=== PATIENT | male | born 1945 | race Caucasian/White ===

== ENCOUNTER 2019-03-17 18:03 | Inpatient (IN) | payer MEDICARE, MEDICAID, SELFPAY ==
[2018-12-13 15:52] VITALS: BMI 24.7
[2019-03-17] VITALS (11 sets, daily range): BP systolic 101–111; BP diastolic 65–80; PULSE 89–141; RESP 16–24; TEMP 36.8–37.7; O2SAT 92–99; BMI 24.3; BMI 23.1
--- NOTE | 2019-03-17 18:24 | EKG12_ITS ---
Test Reason : TACHY Blood Pressure : / mmHG Vent. Rate : 130 BPM Atrial Rate : 277 BPM P-R Int : 000 ms QRS Dur : 078 ms QT Int : 294 ms P-R-T Axes : 000 061 008 degrees QTc Int : 432 ms Atrial fibrillation with rapid ventricular response Low voltage QRS (Limb Leads) Nonspecific ST abnormality Abnormal ECG Confirmed by FIDENCIO MISTRY, CARTER ([id number]), inspector firearms FLORENCE NEGRETE ([id number]) on 03/20/2019 11:48:42 AM Referred By: KEYONA/SARA Confirmed By:CARTER NICOLAS MD
--- NOTE | 2019-03-17 18:24 | RAD_ITS ---
STUDY: X-RAY CHEST REASON FOR EXAM: Male, 73 years old. SOB for one week TECHNIQUE: Frontal and lateral views of the chest. COMPARISON: 04/19/2017 FINDINGS: The lungs are clear and expanded. There is no demonstrated pleural abnormality. Normal size heart. Normal mediastinum and [place]. Normal visualized pulmonary arteries. Normal visualized aortic arch and descending thoracic aorta. Normal visualized thoracic spine. Normal visualized ribs, clavicles, and shoulders. There is no demonstrated abnormality of the visualized soft tissue structures of the upper abdomen. RAD/Chest PA and Lateral IMPRESSION: Normal x-ray examination of the chest. Electronically Signed: Albert West MD at 19:07 EDT Tel , Service support ,
--- NOTE | 2019-03-17 18:25 | ED.DCSUM_ITS ---
History of Present Illness Chief Complaint: Shortness of Breath Informant: Patient, EMS Onset: Days - 2-3 Activity at onset: Exertion Timing: Intermittent Quality: Dyspnea on exertion Current Severity: Gone Maximum Severity: Severe Worsened by: Coughing, Exertion Relieved by: Rest Associated Symptoms: Cough - w/ carter nonbloody sputum, Fever Chest Pain: Intermittent - over past 1-2 days, constant today; no radiation, Dull, Aching Narrative: Patient has been feeling ill for the last several days with productive cough, dyspnea with exertion, chest discomfort that now is constant despite resting. No history of ischemic heart disease but he does have a cardiomyopathy from unknown cause as well as chronic A. fib. He has felt his heart racing. Per EMS he had a temperature of 102, but despite not getting anything for it, here his temperature is 98. - Past Medical History (1) Cervical arthritis Status: Chronic (2) Anxiety Status: Chronic (3) BPH (benign prostatic hyperplasia) Status: Chronic (4) Cardiomyopathy Status: Chronic (5) Chronic a-fib Status: Chronic (6) DVT (deep venous thrombosis) Status: Chronic (7) HTN (hypertension) Status: Chronic (8) Hyperlipidemia Status: Chronic (9) Other secondary pulmonary hypertension Status: Chronic (10) Pulmonary emboli Status: Chronic Past Medical History - Allergies and Home Meds Allergies/Adverse Reactions: Allergies lisinopril Allergy (Verified 03/17/19 18:11) pain in legs, cant walk niacin Allergy (Verified 03/17/19 18:11) Rash acetaminophen [From Tylenol] Adverse Reaction (Severe, Verified 03/17/19 18:11) Chest pain guaifenesin [From Mucinex] Adverse Reaction (Severe, Verified 03/17/19 18:11) Chest pain popcorn Allergy (Unknown, Uncoded 03/17/19 18:11) Rash food color Adverse Reaction (Severe, Uncoded 03/17/19 18:11) Unknown Primary Care Physician: Danny Helton MD [Primary Care Provider] - Surgical History: - - Full mouth extraction Lives: Shelter - Assisted living Smoking Status: Current every day smoker - Family History Paternal Family History: Reports: Unknown Maternal Family History: Reports: Heart Disease Review of Systems General: Reports: Fever, Malaise, Subjective. Denies: Chills, Sweats Eyes: Denies: Visual changes - bilaterally, Diplopia ENT: Denies: Rhinorrhea, Sore throat Cardiovascular: Reports: Chest pain, Palpitations, Heart racing Respiratory: Reports: Cough, Sputum - carter, no hemoptysis, Dyspnea on exertion. Denies: Orthopnea Gastrointestinal: Denies: Abdominal pain, Nausea, Vomiting, Diarrhea, Melena, Hematochezia Genitourinary: Denies: Dysuria, Hematuria, Frequency Musculoskeletal: Denies: Back pain, Swelling, Extremity Pain Skin: Denies: Rash, Wounds Neurological: Denies: Headache, Weakness, Numbness Physical Exam Vital Signs/Narrative: Vital Signs Temp Pulse Resp BP Pulse Ox 03/17/19 18:04 98.3 F 141 H 21 H 104/71 95 Inital Vital Signs reviewed: Yes General: Well nourished, Well developed, No Acute Distress - conversive in full sentences, nad Head: Normocephalic, Atraumatic Eyes: Perrl, EOMI ENT: Moist mucous membranes, No rhinorrhea Neck: Supple, Nontender, No lymphadenopathy, No JVD Cardiovascular: No murmurs, Normal S1, Normal S2, Irregular, Tachycardia Respiratory: No distress, CTA bilaterally, Chest nontender, Diminished - throughout Abdomen: Soft, Nontender, Nondistended, Normal bowel sounds Back: Nontender, Normal Inspection Extremities: Nontender, No edema. Negative for: Calf Tenderness Skin: Normal color, No rash, No Trauma Neurological: Alert, Oriented x3, Cranial nerves II-XII grossly intact, Normal Strength, Normal Sensation Psychological: Normal affect, Normal Mood Diagnostic/Tx/Re-eval Impressions Chest X-Ray 03/17/19 18:24 IMPRESSION: Normal x-ray examination of the chest. Electronically Signed: Albert West MD at 19:07 EDT Tel , Service support , 03/17/19 18:24 Chest PA and Lateral [RAD] Stat Laboratory Results 03/17/19 03/17/19 03/17/19 18:15 18:15 18:15 WBC 13.9 H RBC 4.28 L Hgb 13.7 Hct 39.9 L MCV 93.2 MCH 32.0 MCHC 34.3 RDW Std Deviation 45.2 H RDW Coeff of Maria Gu[place]upe 13.2 Plt Count 248 MPV 9.8 Immature Gran % (Auto) 0.600 Neut % (Auto) 81.7 H Lymph % (Auto) 7.3 L [place] % (Auto) 10.2 H Eos % (Auto) 0.0 Baso % (Auto) 0.2 Absolute Neuts (auto) 11.4 H Absolute Lymphs (auto) 1.01 Nucleated RBC % 0 Differential Comment SCANNED Diff Path Review May foll Hypersegmented Neuts RARE H Platelet Estimate ADEQUATE RBC Morphology NORM C+C PT 25.7 H INR 2.3 APTT 39.8 H Sodium 136 Potassium 3.7 Chloride 105 Carbon Dioxide 21.0 Anion Gap 10 BUN 20 H Creatinine 0.85 Estim Creat Clear Calc 83.69 Est GFR (MDRD) Af Amer 114 Est GFR (MDRD) Non-Af 94 BUN/Creatinine Ratio 23.6 H Glucose 109 H Lactic Acid Calcium 8.1 L Total Bilirubin 0.60 AST 25 ALT 30 Alkaline Phosphatase 69 Troponin I < 0.015 Total Protein 6.8 Albumin 2.8 L Globulin 4.0 Albumin/Globulin Ratio 0.7 L Urine Color Urine Clarity Urine pH Ur Specific [place] Urine Protein Urine Glucose (UA) Urine Ketones Urine Occult Blood Urine Nitrite Urine Bilirubin Urine Urobilinogen Ur Leukocyte Esterase Urine RBC Urine WBC Ur Squamous Epith Cells Urine Bacteria Hyaline Casts Urine Mucus Digoxin 03/17/19 03/17/19 03/17/19 18:15 18:24 20:40 WBC RBC Hgb Hct MCV MCH MCHC RDW Std Deviation RDW Coeff of Maria [place] Plt Count MPV Immature Gran % (Auto) Neut % (Auto) Lymph % (Auto) [place] % (Auto) Eos % (Auto) Baso % (Auto) Absolute Neuts (auto) Absolute Lymphs (auto) Nucleated RBC % Differential Comment Diff Path Review Hypersegmented Neuts Platelet Estimate RBC Morphology PT INR APTT Sodium Potassium Chloride Carbon Dioxide Anion Gap BUN Creatinine Estim Creat Clear Calc Est GFR (MDRD) Af Amer Est GFR (MDRD) Non-Af BUN/Creatinine Ratio Glucose Lactic Acid 1.2 Calcium Total Bilirubin AST ALT Alkaline Phosphatase Troponin I Total Protein Albumin Globulin Albumin/Globulin Ratio Urine Color Yellow Urine Clarity Sl. Cloudy Urine pH 5.0 Ur Specific [place] 1.015 Urine Protein 30 H Urine Glucose (UA) Normal Urine Ketones 50 H Urine Occult Blood 150 H Urine Nitrite Positive H Urine Bilirubin Negative Urine Urobilinogen Normal Ur Leukocyte Esterase 100 H Urine RBC 0-5 SEEN Urine WBC 10-25 SEEN Ur Squamous Epith Cells 0 SEEN Urine Bacteria 3+ Hyaline Casts 0-5 SEEN Urine Mucus 0 SEEN Digoxin 0.75 L - Rhythm Strip Rhythm Strip: A-fib Rate: 130 Ectopy: None - EKG Initial EKG Interpretation: No Acute Injury Pattern, Atrial Fibrillation Prior: Unchanged - Medical Decision Making Patient meets sepsis criteria, the source ended up being his urine which we started him on antibiotics for after mendoza culturing. His chest x-ray seemed unremarkable. Once we slowed his heart rate down, his dyspnea and chest pain resolved. Therefore, and especially with his therapeutic INR, I do not think he needs further work-up for pulmonary embolus. With 1 dose of Cardizem 10 mg in the ER, his heart rate remained relatively controlled around 100 and I do not feel he needs a drip. His blood pressure remained stable. Plan is for admission and continued treatment and evaluation. At this time his troponin is negative. ED Disposition - Plan for ED Patient: Disposition: Acute Care [facility] [place] Diagnosis: Sepsis due to urinary tract infection, Atrial fibrillation with RVR, Chest pain, unspecified Referrals: Danny Helton MD [Primary Care Provider] -
[2019-03-17 18:41] LABS: Absolute Lymphocyte Count 1.01 X10^3/uL (0.83-4.51); Absolute Neutrophil Count 11.4 X10^3/uL (2.0-7.7); Basophil# 0.03 X10^3/uL; Basophil% 0.2 % (0-1); Hematocrit 39.9 % (40-54); Hemoglobin 13.7 g/dL (13.0-16.5); Lymphocyte # 1.01 X10^3/ul (4.0); Lymphocyte % 7.3 % (19-41); Mean Corp Hgb Conc 34.3 g/dL (32-36); Mean Corpuscular Volume 93.2 fL (80-94); Mean Platelet Vol. 9.8 fl (6.2-12.0); Monocyte# 1.42 X10^3/uL; Monocyte% 10.2 % (0-10); NRBC Flagged by Analyzer 0 % (0-5); Neutrophil # 11.36 X10^3/uL (2.7-7.7); Neutrophil % 81.7 % (47-70); POSITIVE MORPHOLOGY YES; Platelet Count 248 K/mm3 (150-450); RBC Distribution Width CV 13.2 % (11.6-14.6); RBC Distribution Width SD 45.2 fl (35.1-43.9); Red Blood Count 4.28 M/mm3 (4.6-6.2); White Blood Count 13.9 K/mm3 (4.4-11.0)
[2019-03-17 18:47] LABS: International Normalized Ratio 2.3; Prothrombin Time (Protime)PT. 25.7 SECONDS (11.7-14.9)
[2019-03-17 18:48] LABS: Partial Thromboplast Time 39.8 Seconds (24.1-36.2)
[2019-03-17 18:56] LABS: Lactic Acid 1.2 mmol/L (0.4-2.0)
[2019-03-17 19:05] LABS: Differential Indicated SCAN CRITERIA MET
[2019-03-17 19:06] LABS: Differential Comment SCANNED; Platelet Estimate ADEQUATE (ADEQ); Red Cell Morphology NORM C+C NORMAL (NORM C&C)
[2019-03-17 19:07] LABS: Hypersegmented Neutrophils RARE
[2019-03-17 19:16] LABS: Digoxin Level 0.75 ng/mL (0.80-2.00)
[2019-03-17] MEDS: dilTIAZem 25 MG/5 ML Vial 10 MG IV BOLUS (19:30)
[2019-03-17 19:31] LABS: ALB/GLOB Ratio 0.7 RATIO (0.9-2.4); AST(SGOT) 25 U/L (15-37); Alanine Aminotransfer ALT/SGPT 30 U/L (16-61); Albumin, Serum 2.8 g/dL (3.2-5.0); Alkaline Phosphatase 69 U/L (45-117); Anion Gap 10 (5-15); BUN 20 mg/dL (7-18); BUN/Creat Ratio 23.6 RATIO (10-20); Calcium,Total 8.1 mg/dL (8.5-10.1); Chloride 105 mmol/L (98-107); Creatinine, Serum 0.85 mg/dL (0.70-1.30); EST Glomerular Filtration Rate 94 mL/min (>60); Est Glom Filt Rate - Afr Amer 114 mL/min (>60); Estimated Creatinine Clearance 83.69 ml/min; Glucose 109 mg/dL (74-106); Potassium 3.7 mmol/L (3.5-5.1); Protein, Total 6.8 g/dL (6.4-8.2); Sodium Level 136 mmol/L (136-145)
[2019-03-17 20:48] LABS: Mucous, Urine 0 SEEN /hpf (<or=2+); Squamous Epithelial Cells - UA 0 SEEN /hpf (0-5)
[2019-03-17 20:50] LABS: Color, Urine Yellow (Yellow); Glucose, Dipstick Normal (Normal); Ketone-Dipstick 50 mg/dl (Negative); Leukocyte Esterase-Dipstick 100 /ul (Negative); Nitrite-Dipstick Positive (Negative); Occult Blood-Urine 150 /ul (Negative); Protein-Dipstick 30 mg/dl (Negative); Specific Gravity, Urine 1.015 (1.002-1.030); Urine Bilirubin Dipstick Negative (Negative); Urine Clarity Sl. Cloudy (Clear); Urine Urobilinogen Normal (Normal)
[2019-03-17 21:07] LABS: Hyaline Cast 0-5 SEEN /lpf (0-5)
[2019-03-17 21:09] LABS: Bacteria 3+ /hpf (None Seen); Red Blood Cells-Urine 0-5 SEEN /hpf (0-5); White Blood Cells 10-25 SEEN /hpf (0-5)
--- NOTE | 2019-03-17 21:28 | PCM.HP.STD ---
Problem List (1) Atrial fibrillation with RVR Status: Acute (2) Ataxia Status: Inactive History of Present Illness Date of Admission: 03/17/19 Chief Complaint: HEART RACING The patient is a 73 year old M with a significant history of BPH; cardiomyopathy; chronic A. fib;DVT ; hypertension; hyperlipidemia; secondary primary hypertension who presented to emergency department with 2 to 3 days of his heart racing. Associated with symptoms is shortness of breath and malaise. Also had a fever at home. When paramedics checked his temperature extremity was 100.4. He reports about 6-month history of increased frequency in urination. At the emergency department his digoxin level was low. Patient was in A. fib with rapid ventricular response with ventricular rate of 130. Patient was given 10 mg of IV Cardizem and his heart rate was in the 100s. Also reports chronic productive cough with white sputum . 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) Cardiomyopathy (Chronic) HTN (hypertension) (Chronic) Pulmonary emboli (Chronic) DVT (deep venous thrombosis) (Chronic) Chronic a-fib (Chronic) Tobacco dependence (Chronic) BPH (benign prostatic hyperplasia) (Chronic) Anxiety (Chronic) Medical History: Medical History (Last Reviewed 03/18/19 @ 06:45 by Rusty Neil MD) Other secondary pulmonary hypertension (Chronic) I27.29 Hyperlipidemia (Chronic) E78.5 Cardiomyopathy (Chronic) I42.9 HTN (hypertension) (Chronic) I10 DVT (deep venous thrombosis) (Chronic) Chronic a-fib (Chronic) I48.2 BPH (benign prostatic hyperplasia) (Chronic) N40.0 Allergies lisinopril Allergy (Verified 03/17/19 18:11) pain in legs, cant walk niacin Allergy (Verified 03/17/19 18:11) Rash acetaminophen [From Tylenol] Adverse Reaction (Severe, Verified 03/17/19 18:11) Chest pain guaifenesin [From Mucinex] Adverse Reaction (Severe, Verified 03/17/19 18:11) Chest pain popcorn Allergy (Unknown, Uncoded 03/17/19 18:11) Rash food color Adverse Reaction (Severe, Uncoded 03/17/19 18:11) Unknown Home Medications: Ambulatory Orders Medication Instructions Recorded Aspirin E.C. [Ecotrin] 81 mg PO DAILY@0800 03/12/15 Digoxin [Digox] 125 mg PO DAILY 03/12/15 Diltiazem HCl [Diltiazem 24Hr Cd] 120 mg PO DAILY 03/12/15 Multivitamins,Ther W-Minerals 1 tab PO DAILY 03/12/15 [Multivitamin With Minerals] [place]-3S/Dha/Epa/Fish Oil/D3 [Fish 2 ea PO DAILY 03/12/15 Oil-Vit D3 Softgel] Tamsulosin HCl 0.4 mg PO QHS 03/12/15 Warfarin Sodium 4 mg PO SUTUWETHFRSA 03/12/15 Warfarin [Coumadin] 6 mg PO MO 03/12/15 Atorvastatin Calcium 20 mg PO DAILY 03/17/19 Carvedilol [Coreg] 12.5 mg PO BID 03/17/19 Fluticasone 0.05% [Flonase Nasal 1 spray NASAL DAILY PRN 03/17/19 [place]] Surgical History: - - Full mouth extraction Psychiatric History: No pertinent psych hx Lives: Usp - Assisted living Smoking Status: Current every day smoker - *Family History Paternal History Items: - - Denies knowledge of any paternal medical history Maternal History Items: Heart Disease Review of Systems Constitutional: Reports: Fever, Malaise. Denies: Weight Change HEENT: Denies: Head Aches, Sinus Congestion, Sinus Drainage Cardiovascular: Denies: Chest Pain, Palpitations Respiratory: Reports: Cough - Chronic, Shortness of Breath, Sputum production - Chronic Gastrointestinal: Denies: Abdominal Pain, Nausea, Vomiting Genitourinary: Reports: Frequency. Denies: Dysuria Musculoskeletal: Denies: Joint Pain, Joint Tenderness Skin: Denies: Rash, Wounds Neurological: Denies: Numbness, Tingling, Focal weakness Psychiatric: Denies: Anxiety, Depression, Homicidal Ideations, Suicidal Ideations Hematologic/ Lymphatic: Denies: Easy Bruising, Easy Bleeding VTE Information - Inpt Only VTE Present on Admission: No VTE Mechan Device Prophylaxis: None VTE Pharm Prophylaxis ordered?: No Reason prophylaxis not ordered:: Treatment Not Indicated - Not indicated since patient is already therapeutic on Coumadin. Coumadin for DVT and A. fib continued Patient Problems: Active and Suspected Problems (Last Reviewed 03/18/19 @ 06:45 by Rusty Neil MD) Atrial fibrillation with RVR (Acute) - Physical Exam General: Alert, Oriented x3, Cooperative HEENT: Atraumatic, PERRLA, EOMI, Normocephalic Neck: Supple, No JVD, Negative Carotid Bruits Lungs: Clear to auscultation, Normal air movement, Tachypneic Cardiovascular: No murmurs, Irregular Rate, Tachycardic Abdomen: Bowel Sounds Present, Soft, Non Tender Extremities: No edema, Capillary Refill Less than 3 Seconds Skin: No rashes, No breakdown Musculoskeletal: No Tenderness to Palpation of Joints or Extremities Neurological: Cranial nerves II-XII grossly intact Psych/Mental Status: Normal Affect, Appropriate Vital Signs Temp Pulse Resp BP Pulse Ox 99.1 F 94 20 H 102/72 96 03/17/19 21:00 03/17/19 21:00 03/17/19 21:00 03/17/19 21:00 03/17/19 21:00 Oxygen Delivery Method Room Air Weight: 81.3 kg Body Mass Index (BMI) 24.3 Laboratory Tests Past 24 Hrs 03/17/19 03/17/19 03/17/19 18:15 18:15 18:15 WBC 13.9 H RBC 4.28 L Hgb 13.7 Hct 39.9 L MCV 93.2 MCH 32.0 MCHC 34.3 RDW Std Deviation 45.2 H RDW Coeff of Maria Guadalupe 13.2 Plt Count 248 MPV 9.8 Immature Gran % (Auto) 0.600 Neut % (Auto) 81.7 H Lymph % (Auto) 7.3 L [place] % (Auto) 10.2 H Eos % (Auto) 0.0 Baso % (Auto) 0.2 Absolute Neuts (auto) 11.4 H Absolute Lymphs (auto) 1.01 Nucleated RBC % 0 Differential Comment SCANNED Diff Path Review May foll Hypersegmented Neuts RARE H Platelet Estimate ADEQUATE RBC Morphology NORM C+C PT 25.7 H INR 2.3 APTT 39.8 H Sodium 136 Potassium 3.7 Chloride 105 Carbon Dioxide 21.0 Anion Gap 10 BUN 20 H Creatinine 0.85 Estim Creat Clear Calc 83.69 Est GFR (MDRD) Af Amer 114 Est GFR (MDRD) Non-Af 94 BUN/Creatinine Ratio 23.6 H Glucose 109 H Lactic Acid Calcium 8.1 L Total Bilirubin 0.60 AST 25 ALT 30 Alkaline Phosphatase 69 Troponin I < 0.015 Total Protein 6.8 Albumin 2.8 L Globulin 4.0 Albumin/Globulin Ratio 0.7 L Urine Color Urine Clarity Urine pH Ur Specific [place] Urine Protein Urine Glucose (UA) Urine Ketones Urine Occult Blood Urine Nitrite Urine Bilirubin Urine Urobilinogen Ur Leukocyte Esterase Urine RBC Urine WBC Ur Squamous Epith Cells Urine Bacteria Hyaline Casts Urine Mucus Digoxin 03/17/19 03/17/19 03/17/19 18:15 18:24 20:40 WBC RBC Hgb Hct MCV MCH MCHC RDW Std Deviation RDW Coeff of Maria Guadalupe Plt Count MPV Immature Gran % (Auto) Neut % (Auto) Lymph % (Auto) [place] % (Auto) Eos % (Auto) Baso % (Auto) Absolute Neuts (auto) Absolute Lymphs (auto) Nucleated RBC % Differential Comment Diff Path Review Hypersegmented Neuts Platelet Estimate RBC Morphology PT INR APTT Sodium Potassium Chloride Carbon Dioxide Anion Gap BUN Creatinine Estim Creat Clear Calc Est GFR (MDRD) Af Amer Est GFR (MDRD) Non-Af BUN/Creatinine Ratio Glucose Lactic Acid 1.2 Calcium Total Bilirubin AST ALT Alkaline Phosphatase Troponin I Total Protein Albumin Globulin Albumin/Globulin Ratio Urine Color Yellow Urine Clarity Sl. Cloudy Urine pH 5.0 Ur Specific [place] 1.015 Urine Protein 30 H Urine Glucose (UA) Normal Urine Ketones 50 H Urine Occult Blood 150 H Urine Nitrite Positive H Urine Bilirubin Negative Urine Urobilinogen Normal Ur Leukocyte Esterase 100 H Urine RBC 0-5 SEEN Urine WBC 10-25 SEEN Ur Squamous Epith Cells 0 SEEN Urine Bacteria 3+ Hyaline Casts 0-5 SEEN Urine Mucus 0 SEEN Digoxin 0.75 L Assessment/Plan All Active Problems (Last Reviewed 03/18/19 @ 06:45 by Rusty Neil MD) Atrial fibrillation with RVR (Acute) The patient is a 73 year old M with a significant history of BPH; cardiomyopathy; chronic A. fib;DVT ; hypertension; hyperlipidemia; secondary primary hypertension who presented to emergency department with 2 to 3 days of his heart racing; shortness of breath; fever and found to have low-grade fever of 99.8 at the emergency department; tachycardia; tachypnea; leukocytosis and with abnormal urinalysis consistent with sepsis secondary to probable UTI. Sepsis secondary to Cystitis Lactic acid:1.2 RR >= 20 Tachycardia with highest ventricular rate of 141. EKG showed A. fib with rate of 130 Patient leukocytosis with white count of 13.9 neutrophilic predominance. Blood culture ?2 is pending Urine culture pending; follow Chest x-ray: Independently reviewed r confirms no acute cardiopulmonary process Antibiotics : Ceftriaxone was given at the emergency department. Ceftriaxone continued A. fib with RVR Patient received Cardizem bolus in the emergency department. We will hold off further Cardizem at this time. If his rate is more than 110 we will resume patient on Cardizem. Continue home digoxin. Of note his digoxin level was low. Continue home p.o. Cardizem. Patient used to see at [facility] contact center associate. Of note he has been to Dr. Robertson's (contact center associate) office. Consider discussing case with Dr. Robertson. INR is therapeutic on Coumadin. Coumadin continued. Will optimize potassium by giving supplementation for goal to keep potassium 4.0. On presentation his potassium was 3.7. Will check magnesium level. Check TSH. Hypertension On presentation his blood pressure was within. Cardizem po continued. Note patient received Cardizem IV bolus at the emergency department for his A. fib with RVR. Trend blood pressure and adjust blood pressure medications. History of DVT Coumadin as above BPH Flomax continued Tobacco abuse Counselled Declined nicotine patch. DVT Prophylaxis Not indicated since patient is therapeutic on his Coumadin. Coumadin continued. Code Visit Inpatient E&M: 92021 Init Hosp L3
[2019-03-17] MEDS: Ceftriaxone 1 GM/50 ML BAG IV (21:50)
[2019-03-18] VITALS (13 sets, daily range): BP systolic 105–116; BP diastolic 44–71; PULSE 88–176; RESP 16–24; TEMP 36.9–38.2; O2SAT 94–97
[2019-03-18] MEDS: dilTIAZem CD 120 MG Capsule PO ×3 (00:48→21:47)
[2019-03-18] MEDS: Tamsulosin HCl 0.4 MG Capsule PO ×2 (00:49→21:47)
[2019-03-18 06:21] LABS: Absolute Lymphocyte Count 1.61 X10^3/uL (0.83-4.51); Absolute Neutrophil Count 9.1 X10^3/uL (2.0-7.7); Basophil# 0.04 X10^3/uL; Basophil% 0.3 % (0-1); Eosinophil# 0.05 X10^3/uL; Eosinophils% 0.4 % (0-5); Hematocrit 41.3 % (40-54); Hemoglobin 13.4 g/dL (13.0-16.5); Lymphocyte # 1.61 X10^3/ul (4.0); Lymphocyte % 12.6 % (19-41); Mean Corp Hgb Conc 32.4 g/dL (32-36); Mean Corpuscular Hgb 30.7 pg (27.0-32.0); Mean Corpuscular Volume 94.5 fL (80-94); Mean Platelet Vol. 9.8 fl (6.2-12.0); Monocyte# 1.89 X10^3/uL; Monocyte% 14.8 % (0-10); NRBC Flagged by Analyzer 0 % (0-5); Neutrophil # 9.11 X10^3/uL (2.7-7.7); Neutrophil % 71.3 % (47-70); POSITIVE DIFFERENTIAL YES; Platelet Count 248 K/mm3 (150-450); RBC Distribution Width CV 13.3 % (11.6-14.6); RBC Distribution Width SD 46.7 fl (35.1-43.9); Red Blood Count 4.37 M/mm3 (4.6-6.2); White Blood Count 12.8 K/mm3 (4.4-11.0)
[2019-03-18 06:47] LABS: Differential Indicated SCAN CRITERIA MET
[2019-03-18 06:48] LABS: Anion Gap 7 (5-15); BUN 18 mg/dL (7-18); BUN/Creat Ratio 23.2 RATIO (10-20); Calcium,Total 8.6 mg/dL (8.5-10.1); Chloride 108 mmol/L (98-107); Creatinine, Serum 0.78 mg/dL (0.70-1.30); EST Glomerular Filtration Rate 104 mL/min (>60); Est Glom Filt Rate - Afr Amer 126 mL/min (>60); Estimated Creatinine Clearance 70.95 ml/min; Glucose 107 mg/dL (74-106); Potassium 4.1 mmol/L (3.5-5.1); Sodium Level 139 mmol/L (136-145); Thyroid Stim Hormone (TSH) 1.05 uIU/mL (0.358-3.74)
[2019-03-18 07:13] LABS: Differential Comment SCANNED; Rouleaux 1+
[2019-03-18] MEDS: 0.9% NaCl Peripheral Flush Adult/Peds IV (09:22)
[2019-03-18] MEDS: Digoxin 125 MCG Tablet PO (09:22)
[2019-03-18] MEDS: Aspirin E.C. 81 MG Tablet PO (09:22)
[2019-03-18] MEDS: Multivitamins,Ther W-Minerals Tablet 1 TABLET PO (09:22)
[2019-03-18] MEDS: Ceftriaxone 1 GM/50 ML BAG IV (09:24)
--- NOTE | 2019-03-18 10:24 | CT_ITS ---
STUDY: CT CHEST WITHOUT CONTRAST REASON FOR EXAM: Male, 73 years old. Shortness of breath/cough. Fever. UTI. RADIATION DOSAGE (If Supplied By Facility): CTDIvol = ( 12.71 ) mGy, DLP = ( 467.02 ) mGycm TECHNIQUE: Transaxial imaging was performed without the administration of intravenous contrast material. Multiplanar coronal and sagittal images were reformatted. Individualized dose optimization techniques were used for this CT. COMPARISON: Comparison is made with prior examination dated January 03, 2012. FINDINGS: Hyperinflation. Emphysematous changes worse in the upper lobes with cystic changes. Mild degree of increased interstitial markings at the left lung base suggestive of scarring. There is no demonstrated pleural abnormality. There are calcifications of the coronary arteries. Small pericardial effusion. Mild cardiomegaly. There are multiple small lymph nodes within the mediastinum, which are normal in size and morphology most compatible with reactive lymph hyperplasia. Normal hilar regions. Normal unenhanced pulmonary arteries. There is atherosclerotic calcification of the aortic arch. Bovine origin of the left common carotid artery. There are multi-level degenerative changes of the thoracic spine. Loss of height of the mid dorsal vertebrae. Increased kyphosis. Small sliding hiatal hernia. CT/Chest without Contrast IMPRESSION: Hyperinflation and emphysematous changes with scarring in the left lower lobe. Small pericardial effusion. Coronary artery calcification. Electronically Signed: Preet Coelho, at 13:06 EDT , Service support ,
--- NOTE | 2019-03-18 14:17 | PCM.PROGNOTE ---
Patient Problems: Active and Suspected Problems (Last Reviewed 03/18/19 @ 06:45 by Rusty Neil MD) Atrial fibrillation with RVR (Acute) Subjective: Pt complains of productive cough and mild SOB. No wheezing. No CP. No dysuria. Post void bladder scan with ~150cc. No palp. - Physical Exam General: Alert, Oriented x3, Cooperative HEENT: Atraumatic, PERRLA, EOMI, Normocephalic Neck: Supple, No JVD, Negative Carotid Bruits Lungs: Clear to auscultation, Normal air movement Cardiovascular: Regular rate, No murmurs Abdomen: Bowel Sounds Present, Soft, Non Tender Extremities: No edema, Capillary Refill Less than 3 Seconds Skin: No rashes, No breakdown Musculoskeletal: No Tenderness to Palpation of Joints or Extremities Neurological: Cranial nerves II-XII grossly intact Psych/Mental Status: Normal Affect, Appropriate, Alert and oriented to time, place, person, mood and affect Vital Signs Temp Pulse Resp BP Pulse Ox 98.7 F 97 16 105/71 94 03/18/19 09:35 03/18/19 09:35 03/18/19 09:35 03/18/19 09:35 03/18/19 09:35 Oxygen Delivery Method Room Air Weight: 170 lb 10.205 oz Body Mass Index (BMI) 23.1 Intake and Output for Last 24 Hours 03/16/19 03/17/19 03/18/19 23:59 23:59 23:59 Intake Total 50 / 170 705 / 705 Output Total 300 / 300 Balance 50 / 170 405 / 405 Microbiology Past 72 Hours 03/17/19 20:40 Urine Culture - Preliminary Urine, Clean Catch Presumptive E. coli Laboratory Tests Past 24 Hrs 03/17/19 03/17/19 03/17/19 18:15 18:15 18:15 WBC 13.9 H RBC 4.28 L Hgb 13.7 Hct 39.9 L MCV 93.2 MCH 32.0 MCHC 34.3 RDW Std Deviation 45.2 H RDW Coeff of Maria Gu[place]upe 13.2 Plt Count 248 MPV 9.8 Immature Gran % (Auto) 0.600 Neut % (Auto) 81.7 H Lymph % (Auto) 7.3 L [place] % (Auto) 10.2 H Eos % (Auto) 0.0 Baso % (Auto) 0.2 Absolute Neuts (auto) 11.4 H Absolute Lymphs (auto) 1.01 Nucleated RBC % 0 Differential Comment SCANNED Diff Path Review May foll Hypersegmented Neuts RARE H Platelet Estimate ADEQUATE RBC Morphology NORM C+C Rouleaux PT 25.7 H INR 2.3 APTT 39.8 H Sodium 136 Potassium 3.7 Chloride 105 Carbon Dioxide 21.0 Anion Gap 10 BUN 20 H Creatinine 0.85 Estim Creat Clear Calc 83.69 Est GFR (MDRD) Af Amer 114 Est GFR (MDRD) Non-Af 94 BUN/Creatinine Ratio 23.6 H Glucose 109 H Lactic Acid Calcium 8.1 L Magnesium Total Bilirubin 0.60 AST 25 ALT 30 Alkaline Phosphatase 69 Troponin I < 0.015 Total Protein 6.8 Albumin 2.8 L Globulin 4.0 Albumin/Globulin Ratio 0.7 L TSH Urine Color Urine Clarity Urine pH Ur Specific [place] Urine Protein Urine Glucose (UA) Urine Ketones Urine Occult Blood Urine Nitrite Urine Bilirubin Urine Urobilinogen Ur Leukocyte Esterase Urine RBC Urine WBC Ur Squamous Epith Cells Urine Bacteria Hyaline Casts Urine Mucus Digoxin 03/17/19 03/17/19 03/17/19 18:15 18:15 18:24 WBC RBC Hgb Hct MCV MCH MCHC RDW Std Deviation RDW Coeff of Maria [place] Plt Count MPV Immature Gran % (Auto) Neut % (Auto) Lymph % (Auto) [place] % (Auto) Eos % (Auto) Baso % (Auto) Absolute Neuts (auto) Absolute Lymphs (auto) Nucleated RBC % Differential Comment Diff Path Review Hypersegmented Neuts Platelet Estimate RBC Morphology Rouleaux PT INR APTT Sodium Potassium Chloride Carbon Dioxide Anion Gap BUN Creatinine Estim Creat Clear Calc Est GFR (MDRD) Af Amer Est GFR (MDRD) Non-Af BUN/Creatinine Ratio Glucose Lactic Acid 1.2 Calcium Magnesium 2.0 Total Bilirubin AST ALT Alkaline Phosphatase Troponin I Total Protein Albumin Globulin Albumin/Globulin Ratio TSH Urine Color Urine Clarity Urine pH Ur Specific [place] Urine Protein Urine Glucose (UA) Urine Ketones Urine Occult Blood Urine Nitrite Urine Bilirubin Urine Urobilinogen Ur Leukocyte Esterase Urine RBC Urine WBC Ur Squamous Epith Cells Urine Bacteria Hyaline Casts Urine Mucus Digoxin 0.75 L 03/17/19 03/18/19 03/18/19 20:40 05:50 05:50 WBC 12.8 H RBC 4.37 L Hgb 13.4 Hct 41.3 MCV 94.5 H MCH 30.7 MCHC 32.4 RDW Std Deviation 46.7 H RDW Coeff of Maria [place] 13.3 Plt Count 248 MPV 9.8 Immature Gran % (Auto) 0.600 Neut % (Auto) 71.3 H Lymph % (Auto) 12.6 L [place] % (Auto) 14.8 H Eos % (Auto) 0.4 Baso % (Auto) 0.3 Absolute Neuts (auto) 9.1 H Absolute Lymphs (auto) 1.61 Nucleated RBC % 0 Differential Comment SCANNED Diff Path Review May foll Hypersegmented Neuts Platelet Estimate RBC Morphology Rouleaux 1+ PT INR APTT Sodium 139 Potassium 4.1 Chloride 108 H Carbon Dioxide 24.0 Anion Gap 7 BUN 18 Creatinine 0.78 Estim Creat Clear Calc 70.95 Est GFR (MDRD) Af Amer 126 Est GFR (MDRD) Non-Af 104 BUN/Creatinine Ratio 23.2 H Glucose 107 H Lactic Acid Calcium 8.6 Magnesium Total Bilirubin AST ALT Alkaline Phosphatase Troponin I Total Protein Albumin Globulin Albumin/Globulin Ratio TSH 1.05 Urine Color Yellow Urine Clarity Sl. Cloudy Urine pH 5.0 Ur Specific [place] 1.015 Urine Protein 30 H Urine Glucose (UA) Normal Urine Ketones 50 H Urine Occult Blood 150 H Urine Nitrite Positive H Urine Bilirubin Negative Urine Urobilinogen Normal Ur Leukocyte Esterase 100 H Urine RBC 0-5 SEEN Urine WBC 10-25 SEEN Ur Squamous Epith Cells 0 SEEN Urine Bacteria 3+ Hyaline Casts 0-5 SEEN Urine Mucus 0 SEEN Digoxin Medical Necessity - Tobacco Use Smoking Status: Current every day smoker Assessment/Plan All Active Problems (Last Reviewed 03/18/19 @ 06:45 by Rusty Neil MD) Atrial fibrillation with RVR (Acute) 1. Acute sepsis 2/2 acute cystitis - rocephin. await cultures. Pt with ongoing complaints of productive cough and mild SOB. CT chest done, emphysematous changes. He denies hx of asthma/COPD. WBC improved. 2. Afib RVR 2/2 above - improved. Digoxin, cardizem, warfarin 3. HTN - stable. 4. Hx DVT - on coumadin 5. BPH - flomax. again post void only slight retention 6. Tobacco abuse with underlying emphysema - discussed cessation. Referral to pulm as o/p. DVT ppx: warfarin DC planning: PTOT This patient was seen by Aravind Elizalde PA-C under the supervision of Dr. Millan
--- NOTE | 2019-03-18 15:43 | CHAPLAIN ---
Type of Pastoral Visit _x__ Initial Visit ___ Follow-up Visit ___ On-call Visit ___ General Patient Visit ___ Spiritual Assessment ___ Family Conference ___ Bereavement ___ Rapid Response ___ Code Blue ___ Other (describe below) Pastoral Care Referral From _x__ Patient ___ Family ___ Nurse ___ Physician ___ Satellite Manager ___ Automation Consultant ___ Other (describe below) Sacrament/Intervention _x__ Active listening ___ Anointing ___ Christian ___ Bereavement ___ Communion ___ Steph exploration ___ _x__ Life review _x__ Prayer ___ Reconciliation ___ Sacrament of Sick _x__ Supportive presence ___ Wedding ___ Other (describe below) Pastoral Comments
--- NOTE | 2019-03-18 16:09 | CASEMGMT ---
Social Work SW met with pt in room and introduced role of SW. Pt lives at [facility]. Pt states he is independent with ADLs and staff assist with cleaning, laundry and meals. Pt does have a therapeutic case manager at [facility] but cannot remember their name. Dr. Montez is PCP and [facility] fills pt prescriptions. Pt inquired if pt would like to list an emergency contact and pt denies stating his relatives are not reliable. Pt plans to return to [place] upon d/c and states he does not have transportation but would like to use [facility] van to take back to [place] at time of discharge. Phone call to [facility] and Wen Castaneda is CM. left to determine services. Plan: Return to [facility] upon d/c JORGE Flores
[2019-03-18] MEDS: Atorvastatin Calcium 20 MG Tablet PO (21:47)
[2019-03-19] VITALS (8 sets, daily range): BP systolic 90–106; BP diastolic 59–66; PULSE 47–89; RESP 16–21; TEMP 36.9–37.3; O2SAT 94–95
[2019-03-19 06:08] LABS: Absolute Lymphocyte Count 1.54 X10^3/uL (0.83-4.51); Absolute Neutrophil Count 6.9 X10^3/uL (2.0-7.7); Basophil# 0.03 X10^3/uL; Basophil% 0.3 % (0-1); Eosinophil# 0.19 X10^3/uL; Eosinophils% 1.8 % (0-5); Hematocrit 39.4 % (40-54); Hemoglobin 13.1 g/dL (13.0-16.5); Lymphocyte # 1.54 X10^3/ul (4.0); Lymphocyte % 14.8 % (19-41); Mean Corp Hgb Conc 33.2 g/dL (32-36); Mean Corpuscular Volume 93.1 fL (80-94); Mean Platelet Vol. 9.4 fl (6.2-12.0); Monocyte# 1.79 X10^3/uL; Monocyte% 17.1 % (0-10); NRBC Flagged by Analyzer 0 % (0-5); Neutrophil # 6.85 X10^3/uL (2.7-7.7); Neutrophil % 65.6 % (47-70); POSITIVE DIFFERENTIAL YES; POSITIVE MORPHOLOGY YES; Platelet Count 220 K/mm3 (150-450); RBC Distribution Width CV 13.4 % (11.6-14.6); RBC Distribution Width SD 45.8 fl (35.1-43.9); Red Blood Count 4.23 M/mm3 (4.6-6.2); White Blood Count 10.4 K/mm3 (4.4-11.0)
[2019-03-19 06:12] LABS: Differential Indicated SCAN CRITERIA MET
[2019-03-19 07:15] LABS: Differential Comment SCANNED
[2019-03-19] MEDS: Ceftriaxone 1 GM/50 ML BAG IV (09:42)
[2019-03-19] MEDS: dilTIAZem CD 120 MG Capsule PO (09:42)
[2019-03-19] MEDS: Aspirin E.C. 81 MG Tablet PO (09:43)
[2019-03-19] MEDS: Digoxin 125 MCG Tablet PO (09:43)
[2019-03-19] MEDS: Multivitamins,Ther W-Minerals Tablet 1 TABLET PO (09:43)
--- NOTE | 2019-03-19 11:28 | PCM.DC ---
- Discharge Diagnoses Current Active Problems: Current Active and Chronic Problems (Last Reviewed 03/18/19 @ 06:45 by Rusty Neil MD) Atrial fibrillation with RVR (Acute) You will use the following diet at home:: Cardiac Your food should be the consistency of: Regular Your liquids should be the consistency of: Regular/Thin Discharge Activity: Return to Normal Activity Additional Instructions: talk to your family medicine provider about having pulmonary function tests. Allergies/Adverse Reactions: Allergies lisinopril Allergy (Verified 03/17/19 18:11) pain in legs, cant walk niacin Allergy (Verified 03/17/19 18:11) Rash acetaminophen [From Tylenol] Adverse Reaction (Severe, Verified 03/17/19 18:11) Chest pain guaifenesin [From Mucinex] Adverse Reaction (Severe, Verified 03/17/19 18:11) Chest pain popcorn Allergy (Unknown, Uncoded 03/17/19 18:11) Rash food color Adverse Reaction (Severe, Uncoded 03/17/19 18:11) Unknown Medications to take at Discharge Aspirin E.C. [Ecotrin] 81 mg PO DAILY@0800 03/12/15 Digoxin [Digox] 125 mg PO DAILY 03/12/15 Diltiazem HCl [Diltiazem 24Hr Cd] 120 mg PO DAILY 03/12/15 Multivitamins,Ther W-Minerals [Multivitamin With Minerals] 1 tab PO DAILY 03/12/15 [place]-3S/Dha/Epa/Fish Oil/D3 [Fish Oil-Vit D3 Softgel] 2 ea PO DAILY 03/12/15 Tamsulosin HCl 0.4 mg PO QHS 03/12/15 Warfarin Sodium 4 mg PO SUTUWETHFRSA 03/12/15 Warfarin [Coumadin] 6 mg PO MO 03/12/15 Atorvastatin Calcium 20 mg PO DAILY 03/17/19 Carvedilol [Coreg] 12.5 mg PO BID 03/17/19 Fluticasone 0.05% [Flonase Nasal [place]] 1 spray NASAL DAILY PRN 03/17/19 Cephalexin [Keflex] 500 mg PO TID #15 cap 03/19/19 The following prescriptions were given: Cephalexin [Keflex] 500 mg PO TID #15 cap Transmission Status: Pending to [facility] #30 Primary Care Physician: Elderbrock,Danny, MD [Primary Care Provider] - Please follow up with your Primary Care Physician in: 1-2 weeks Test Results: Test results from this visit will be discussed in further detail at your follow-up appointment, if applicable. Proposed Discharge Date: 03/19/19
--- NOTE | 2019-03-19 13:41 | CASEMGMT ---
Patient is being discharged and he needs the hospital van to take him home. VIVEK called [facility] and they can pick him up at main entrance at 2p. VIVEK notified RN and patient. Orders were faxed to [facility]. VIVEK also called and left a message for Wen Castaneda with [facility] letting her know about d/c. Plan: d/c back to [facility]. Neeru COBOS MSW
--- NOTE | 2019-03-19 14:53 | DS.PCM_ITS ---
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 CT/Chest without Contrast IMPRESSION: Hyperinflation and emphysematous changes with scarring in the left lower lobe. Small pericardial effusion. Coronary artery calcification. Operations: None Procedures: None Summary of Care Provided: Hospital Course: The patient is a 73 year old M with pmhx of smoking, DVT on warfarin, chronic Afib, BPH, who presented to the ER with c/o 2 days of racing heart, SOB, and malaise. He also had a temp of 100.4 per EMS. He also complained of increased urinary frequency. He came to the ER and had Afib with RVR rate of 130. He received 10 mg IV cardizem after which his rate improved to the 100s. He was found to be septic with fever, leukocytosis, UTI, and tachycardia. Negative lactate. He was admitted to the PCU with sepsis due to UTI and Afib RVR due to infection. He was placed on rocephin. The following day he was feeling better however complained of productive cough. CXR was negative. CT chest was obtained and showed emphysematous changes. He denies a hx of lung disease. I advised him to talk to his PCP about the possibility of COPD and the need for PFTs as an outpatient. His urine cx came back showing pansensitive e coli. He was transitioned to PO keflex and will complete 7 total days of abx. We also checked a post void bladder scan and he only had 150 in his bladder, so we continued his prior flomax. He was discharged back to assisted living in stable condition. He will need follow up with his PCP in 1-2 weeks. This patient was seen by Aravind Elizalde PA-C under the supervision of Dr. Millan. [] - Physical Exam General: Alert, Oriented x3, Cooperative HEENT: Atraumatic, PERRLA, EOMI, Normocephalic Neck: Supple, No JVD, Negative Carotid Bruits Lungs: Clear to auscultation, Normal air movement Cardiovascular: Regular rate, No murmurs Abdomen: Bowel Sounds Present, Soft, Non Tender Extremities: No edema, Capillary Refill Less than 3 Seconds Skin: No rashes, No breakdown Musculoskeletal: No Tenderness to Palpation of Joints or Extremities Neurological: Cranial nerves II-XII grossly intact Psych/Mental Status: Normal Affect, Appropriate, Alert and oriented to time, place, person, mood and affect Vital Signs Temp Pulse Resp BP Pulse Ox 98.4 F 82 16 106/63 94 03/19/19 09:45 03/19/19 09:45 03/19/19 09:45 03/19/19 09:45 03/19/19 09:45 Oxygen Delivery Method Room Air Weight: 170 lb 10.205 oz Body Mass Index (BMI) 23.1 Intake and Output for Last 24 Hours 03/17/19 03/18/19 03/19/19 23:59 23:59 23:59 Intake Total 50 / 170 1905 / 1905 50 / 50 Output Total 300 / 300 0 / 0 Balance 50 / 170 1605 / 1605 50 / 50 Microbiology Past 72 Hours 03/17/19 20:40 Urine Culture - Final Urine, Clean Catch Presumptive E. coli Laboratory Tests Past 24 Hrs 03/19/19 03/19/19 05:50 05:50 WBC 10.4 RBC 4.23 L Hgb 13.1 Hct 39.4 L MCV 93.1 MCH 31.0 MCHC 33.2 RDW Std Deviation 45.8 H RDW Coeff of Maria Guadalupe 13.4 Plt Count 220 MPV 9.4 Immature Gran % (Auto) 0.400 Neut % (Auto) 65.6 Lymph % (Auto) 14.8 L [place] % (Auto) 17.1 H Eos % (Auto) 1.8 Baso % (Auto) 0.3 Absolute Neuts (auto) 6.9 Absolute Lymphs (auto) 1.54 Nucleated RBC % 0 Differential Comment SCANNED PT 23.0 H INR 2.0 Discharge Diet: Low fat/ Low Cholesterol, 2000 mg Sodium Diet Discharge Activity: Return to Normal Activity Home Medications: Medications to take at Discharge Aspirin E.C. [Ecotrin] 81 mg PO DAILY@0800 03/12/15 Digoxin [Digox] 125 mg PO DAILY 03/12/15 Diltiazem HCl [Diltiazem 24Hr Cd] 120 mg PO DAILY 03/12/15 Multivitamins,Ther W-Minerals [Multivitamin With Minerals] 1 tab PO DAILY 03/12/15 [place]-3S/Dha/Epa/Fish Oil/D3 [Fish Oil-Vit D3 Softgel] 2 ea PO DAILY 03/12/15 Tamsulosin HCl 0.4 mg PO QHS 03/12/15 Warfarin Sodium 4 mg PO SUTUWETHFRSA 03/12/15 Warfarin [Coumadin] 6 mg PO MO 03/12/15 Atorvastatin Calcium 20 mg PO DAILY 03/17/19 Carvedilol [Coreg] 12.5 mg PO BID 03/17/19 Fluticasone 0.05% [Flonase Nasal [place]] 1 spray NASAL DAILY PRN 03/17/19 Cephalexin [Keflex] 500 mg PO TID #15 cap 03/19/19 Following Prescrptions Were Given to Patient: Cephalexin [Keflex] 500 mg PO TID #15 cap Transmission Status: Received by [facility] #[id number] Primary Care Physician: Danny Helton MD [Primary Care Provider] - Please follow up with your Primary Care Physician in: 1-2 weeks Please Follow Up With: Dr Danny Helton Disposition: Asstd Living/Non-Skill ID Minutes spent on discharge:: 35 Patient Condition:: Stable Medical Necessity - Tobacco Use Smoking Status: Current every day smoker Meaningful Use Info Meaningful Use Diagnoses (Choose all that apply): None applicable
--- NOTE | 2019-03-19 14:58 | CASEMGMT ---
VIVEK received a call from Shonda at [facility]. Patient's prescription for Keflex needs to go to their pharmacy. [facility] phone: [phone] and fax: [phone]. She also said that he is not normally on Coreg and it was on his d/c med list. VIVEK called [facility] and spoke with Katie asking if they could call [facility] and have the prescription transferred to them. VIVEK gave her patient's information. VIVEK called Aravind NORRIS and he said if patient was not on it prior to coming into [facility] he does not need to be on it. VIVEK called [facility] and spoke with Shonda letting her know above information. Neeru COBOS AUGER MACHINE OFFBEARER
[2019-03-20 09:12] LABS: Pathologist Review Reviewed
[2019-03-20 09:22] LABS: Pathologist Review Reviewed
== END 2019-03-19 13:57 | disposition home or self-care (01) | DRG 690 ==
LOC: ED 21:24 → PCU 21:47
PROVIDERS: Physician Assistant; Admitting Provider Hospitalist; Emergency Provider Emergency Medicine; Family Provider Family Medicine; PCP Family Medicine; Visit Provider Internal Medicine
DX: N30.00 Acute cystitis without hematuria (principal); I42.9 Cardiomyopathy, unspecified; I10 Essential (primary) hypertension; J43.9 Emphysema, unspecified; Z86.718 Personal history of other venous thrombosis and embolism; I27.29 Other secondary pulmonary hypertension; E78.5 Hyperlipidemia, unspecified; I48.2 Chronic atrial fibrillation; F41.9 Anxiety disorder, unspecified; Z79.01 Long term (current) use of anticoagulants; F17.200 Nicotine dependence, unspecified, uncomplicated; N40.1 Benign prostatic hyperplasia with lower urinary tract symptoms; R33.8 Other retention of urine
CPT/HCPCS: 36415; 71046; 71250; 80048; 80053; 80162; 81001; 83605; 83735; 84443; 84484; 85025; 85610; 85730; 87040; 87086; 87088; 87186; 93005; 97161; 97166; 97530; 97802; 99285; 99406; J7030; A4216

== ENCOUNTER 2019-05-05 03:33 | Inpatient (IN) | payer MEDICARE, MEDICAID, SELFPAY ==
[2019-03-17 23:00] VITALS: BMI 23.1
[2019-05-05] VITALS (18 sets, daily range): BP systolic 83–124; BP diastolic 51–92; PULSE 76–147; RESP 16–28; TEMP 36.6–37.1; O2SAT 92–97; BMI 23.9; BMI 22.8; BMI 22.9
--- NOTE | 2019-05-05 03:45 | EKG12_ITS ---
Test Reason : FALL Blood Pressure : / mmHG Vent. Rate : 129 BPM Atrial Rate : 468 BPM P-R Int : 000 ms QRS Dur : 066 ms QT Int : 308 ms P-R-T Axes : 000 041 -13 degrees QTc Int : 451 ms Atrial fibrillation with rapid ventricular response Nonspecific ST and T wave abnormality Abnormal ECG Confirmed by FIDENCIO MISTRY, CARTER ([id number]), science editor JT REESE ([id number]) on 05/08/2019 8:36:21 AM Referred By: ERNA Confirmed By:CARTER NICOLAS MD
--- NOTE | 2019-05-05 03:45 | ED.VIS.GEN ---
History of Present Illness Chief Complaint: Fall Informant: Patient Narrative: Patient stated he has a history of atrial fibrillation on coumadin. Patient stated that he woke up tonight and felt that he is having difficulty catching his breath. He ambulated to the bathroom and sat down in the chair. He stated that he got up quickly felt lightheaded and fell to the ground. He did strike his forehead and got a small abrasion. He did not lose conscious. He said he did not hit his head hard. It was on carpet. He told the nurse at the [facility] and they sent him in for further evaluation. He denies any chest pain or shortness of breath currently. Currently he feels back to normal. He is unsure why this happened tonight. He denies any upper respiratory symptoms. 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 (11) Other secondary pulmonary hypertension Status: Chronic (12) Pulmonary emboli Status: Chronic (13) Tobacco dependence Status: Chronic Past Medical History - Allergies and Home Meds Allergies/Adverse Reactions: Allergies lisinopril Allergy (Verified 03/17/19 18:11) pain in legs, cant walk niacin Allergy (Verified 03/17/19 18:11) Rash acetaminophen [From Tylenol] Adverse Reaction (Severe, Verified 03/17/19 18:11) Chest pain guaifenesin [From Mucinex] Adverse Reaction (Severe, Verified 03/17/19 18:11) Chest pain nut - unspecified Adverse Reaction (Verified 05/05/19 03:34) Other popcorn Allergy (Unknown, Uncoded 03/17/19 18:11) Rash food color Adverse Reaction (Severe, Uncoded 03/17/19 18:11) Unknown Prior records reviewed: Yes Past Medical History: - - see Problem list Surgical History: - - Full mouth extraction Smoking Status: Current every day smoker Alcohol: None Drugs: None - Family History Paternal Family History: Reports: - - Denies knowledge of any paternal medical history Maternal Family History: Reports: Heart Disease Review of Systems General: Denies: Chills, Fever, Sweats Eyes: Denies: Visual changes - bilaterally, Diplopia ENT: Denies: Rhinorrhea, Sore throat Cardiovascular: Denies: Chest pain, Palpitations Respiratory: Reports: Dyspnea. Denies: Cough, Dyspnea on exertion Gastrointestinal: Denies: Abdominal pain, Nausea, Vomiting, Diarrhea, Melena, Hematochezia Genitourinary: Denies: Dysuria, Hematuria, Frequency Musculoskeletal: Denies: Back pain, Extremity Pain Skin: Reports: Abrasions. Denies: Rash, Wounds Neurological: Denies: Headache, Weakness, Parasthesia, Numbness Physical Exam Vital Signs/Narrative: Vital Signs Temp Pulse Resp BP Pulse Ox 05/05/19 03:38 96 05/05/19 03:34 98.4 F 80 18 124/92 H 97 General: Well nourished, Well developed, No Acute Distress Head: Normocephalic, Atraumatic, - - Dime sized abrasion to the left forehead with no significant hematoma or contusion. Nontender Eyes: Perrl, EOMI ENT: Moist mucous membranes, No rhinorrhea Neck: Supple, Nontender Cardiovascular: Regular rate, Regular rhythm, No murmurs Respiratory: No distress, CTA bilaterally, Chest nontender Abdomen: Soft, Nontender, Nondistended, Normal bowel sounds Back: Nontender, Normal Inspection Extremities: Nontender, No edema Skin: Normal color, No rash Neurological: Alert, Oriented x3, Cranial nerves II-XII grossly intact, Normal Strength, Normal Sensation Psychological: Normal affect, Normal Mood Diagnostic/Tx/Re-eval - Rhythm Strip Rhythm Strip: A-fib - EKG Initial EKG Interpretation: Atrial Fibrillation, - - rate 129 no ischemic changes. Prior: Unchanged - Medical Decision Making Impressions Chest X-Ray 05/05/19 04:12 IMPRESSION: Stable COPD changes Stable scattered pulmonary scarring Stable generalized osteopenia, stable mid thoracic spine kyphosis and stable multilevel mild to moderate mid thoracic spine compression fractures Electronically Signed: Yoan Levy, at 5:10 EDT Tel , Service support , 05/05/19 04:12 Chest PA and Lateral [RAD] Stat Laboratory Results 05/05/19 05/05/19 05/05/19 03:50 03:50 03:50 WBC 18.7 H RBC 4.59 L Hgb 14.1 Hct 43.2 MCV 94.1 H MCH 30.7 MCHC 32.6 RDW Std Deviation 48.9 H RDW Coeff of Maria Guadalupe 14.2 Plt Count 288 MPV 9.3 Immature Gran % (Auto) 0.500 Neut % (Auto) 78.6 H Lymph % (Auto) 12.1 L [place] % (Auto) 7.5 Eos % (Auto) 1.0 Baso % (Auto) 0.3 Absolute Neuts (auto) 14.7 H Absolute Lymphs (auto) 2.25 Nucleated RBC % 0 PT 28.2 H INR 2.6 Sodium 137 Potassium 4.2 Chloride 106 Carbon Dioxide 22.0 Anion Gap 9 BUN 18 Creatinine 0.98 Estim Creat Clear Calc 72.59 Est GFR (MDRD) Af Amer 96 Est GFR (MDRD) Non-Af 79 BUN/Creatinine Ratio 18.3 Glucose 110 H Calcium 8.8 Troponin I < 0.015 Urine Color Urine Clarity Urine pH Ur Specific [place] Urine Protein Urine Glucose (UA) Urine Ketones Urine Occult Blood Urine Nitrite Urine Bilirubin Urine Urobilinogen Ur Leukocyte Esterase Urine RBC Urine WBC Ur Squamous Epith Cells Urine Bacteria Urine Mucus 05/05/19 04:30 WBC RBC Hgb Hct MCV MCH MCHC RDW Std Deviation RDW Coeff of Maria Guadalupe Plt Count MPV Immature Gran % (Auto) Neut % (Auto) Lymph % (Auto) [place] % (Auto) Eos % (Auto) Baso % (Auto) Absolute Neuts (auto) Absolute Lymphs (auto) Nucleated RBC % PT INR Sodium Potassium Chloride Carbon Dioxide Anion Gap BUN Creatinine Estim Creat Clear Calc Est GFR (MDRD) Af Amer Est GFR (MDRD) Non-Af BUN/Creatinine Ratio Glucose Calcium Troponin I Urine Color Yellow Urine Clarity Sl. Cloudy Urine pH 6.0 Ur Specific [place] 1.015 Urine Protein 15 H Urine Glucose (UA) Normal Urine Ketones 15 H Urine Occult Blood 25 H Urine Nitrite Positive H Urine Bilirubin Negative Urine Urobilinogen Normal Ur Leukocyte Esterase 500 H Urine RBC 0 SEEN Urine WBC 25-50 SEEN Ur Squamous Epith Cells 0 SEEN Urine Bacteria 3+ Urine Mucus 0 SEEN Lab work above reviewed. White count is 18.7. Urine bacteria 3+ with 25-50 white blood cells. At this time I feel the patient has a complicated urinary tract infection creating atrial fibrillation with rapid ventricular response. He is on Cardizem and digoxin. He was given 2 doses of IV Cardizem with better rate control. His heart rate is come down and he is resting comfortably. Started on ceftriaxone and urine culture sent. I feel the patient should be admitted. His last urine culture grew out pansensitive E. coli. I feel like the patient has a significant head injury. I do not think he needs a CT of his head. I do not think he has intracranial hemorrhage. ED Disposition - Plan for ED Patient: Disposition: Acute Care Hospital [facility] Diagnosis: Complicated urinary tract infection, Atrial fibrillation with rapid ventricular response
[2019-05-05 04:07] LABS: Absolute Lymphocyte Count 2.25 X10^3/uL (0.83-4.51); Absolute Neutrophil Count 14.7 X10^3/uL (2.0-7.7); Basophil# 0.05 X10^3/uL; Basophil% 0.3 % (0-1); Eosinophil# 0.19 X10^3/uL; Hematocrit 43.2 % (40-54); Hemoglobin 14.1 g/dL (13.0-16.5); Lymphocyte # 2.25 X10^3/ul (4.0); Lymphocyte % 12.1 % (19-41); Mean Corp Hgb Conc 32.6 g/dL (32-36); Mean Corpuscular Hgb 30.7 pg (27.0-32.0); Mean Corpuscular Volume 94.1 fL (80-94); Mean Platelet Vol. 9.3 fl (6.2-12.0); Monocyte% 7.5 % (0-10); NRBC Flagged by Analyzer 0 % (0-5); Neutrophil # 14.66 X10^3/uL (2.7-7.7); Neutrophil % 78.6 % (47-70); Platelet Count 288 K/mm3 (150-450); RBC Distribution Width CV 14.2 % (11.6-14.6); RBC Distribution Width SD 48.9 fl (35.1-43.9); Red Blood Count 4.59 M/mm3 (4.6-6.2); White Blood Count 18.7 K/mm3 (4.4-11.0)
[2019-05-05 04:11] LABS: International Normalized Ratio 2.6; Prothrombin Time (Protime)PT. 28.2 SECONDS (11.7-14.9)
--- NOTE | 2019-05-05 04:12 | RAD_ITS ---
STUDY: X-RAY CHEST REASON FOR EXAM: Male, 73 years old. Short of breath TECHNIQUE: PA and lateral chest COMPARISON: 03/17/2019 FINDINGS: There are stable multiple bulla. There is stable scattered pulmonary scarring. There is no demonstrated pleural abnormality. Normal size heart. Normal mediastinum and [place]. Normal visualized pulmonary arteries. Normal visualized aortic arch and descending thoracic aorta. There is stable generalized osteopenia. There are stable mid thoracic spine, mild to moderate compression fractures. There is mild midthoracic kyphosis. There is no demonstrated abnormality of the visualized soft tissue structures of the upper abdomen. RAD/Chest PA and Lateral IMPRESSION: Stable COPD changes Stable scattered pulmonary scarring Stable generalized osteopenia, stable mid thoracic spine kyphosis and stable multilevel mild to moderate mid thoracic spine compression fractures Electronically Signed: Yoan Levy, at 5:10 EDT Tel , Service support ,
[2019-05-05] MEDS: dilTIAZem 25 MG/5 ML Vial 10 MG IV BOLUS ×2 (04:17→05:32)
[2019-05-05 04:21] LABS: Anion Gap 9 (5-15); BUN 18 mg/dL (7-18); BUN/Creat Ratio 18.3 RATIO (10-20); Calcium,Total 8.8 mg/dL (8.5-10.1); Chloride 106 mmol/L (98-107); Creatinine, Serum 0.98 mg/dL (0.70-1.30); EST Glomerular Filtration Rate 79 mL/min (>60); Est Glom Filt Rate - Afr Amer 96 mL/min (>60); Estimated Creatinine Clearance 72.59 ml/min; Glucose 110 mg/dL (74-106); Potassium 4.2 mmol/L (3.5-5.1); Sodium Level 137 mmol/L (136-145)
[2019-05-05 04:39] LABS: Mucous, Urine 0 SEEN /hpf (<or=2+); Red Blood Cells-Urine 0 SEEN /hpf (0-5); Squamous Epithelial Cells - UA 0 SEEN /hpf (0-5)
[2019-05-05 04:41] LABS: Color, Urine Yellow (Yellow); Glucose, Dipstick Normal (Normal); Ketone-Dipstick 15 mg/dl (Negative); Leukocyte Esterase-Dipstick 500 /ul (Negative); Nitrite-Dipstick Positive (Negative); Occult Blood-Urine 25 /ul (Negative); Protein-Dipstick 15 mg/dl (Negative); Specific Gravity, Urine 1.015 (1.002-1.030); Urine Bilirubin Dipstick Negative (Negative); Urine Clarity Sl. Cloudy (Clear); Urine Urobilinogen Normal (Normal)
[2019-05-05 05:16] LABS: Bacteria 3+ /hpf (None Seen); White Blood Cells 25-50 SEEN /hpf (0-5)
[2019-05-05] MEDS: Ceftriaxone 1 GM/50 ML BAG IV (05:39)
--- NOTE | 2019-05-05 05:49 | HP.PCM_ITS ---
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 (8) Pneumonia Status: Inactive (9) Cardiomyopathy Status: Chronic Qualifiers: Cardiomyopathy type: dilated Qualified Code(s): I42.0 - Dilated cardiomyopathy (10) HTN (hypertension) Status: Chronic Qualifiers: Hypertension type: essential hypertension Qualified Code(s): I10 - [place] l (primary) hypertension (11) Pulmonary emboli Status: Chronic (12) DVT (deep venous thrombosis) Status: Chronic (13) Chronic a-fib Status: Chronic (14) Tobacco dependence Status: Chronic (15) BPH (benign prostatic hyperplasia) Status: Chronic (16) Ataxia Status: Inactive (17) Anxiety Status: Chronic History of Present Illness Date of Admission: 05/05/19 Chief Complaint: Shortness of breath with palpitation and fall The patient is a 73 year old M with history of chronic A. fib on Coumadin was brought in to ER from [facility] for shortness of breath and palpitation. He woke up with palpitation and shortness of breath and felt dizzy and lightheaded and then fell on the ground and hit his head in the left frontal region and got a small bump and abrasion. No loss of consciousness. Patient denies any chest pain. In ED, he was found to be A. fib with RVR, heart rate 147/min, blood pressure 96/59, respiratory 23 and pulse ox 92% on room air. He also complained of increased frequency and urgency but denies burning micturition/perineal pain. History of COPD with chronic cough with whitish sputum which is getting better. He still feels mucus in the chest and difficulty in expectoration. Basic blood work in ER shows leukocytosis 18.7 thousand, neutrophils 78%, INR 2.6, UA positive of pyuria 25-50 cells, 3+ bacteria, nitrite positive and LE 500. EKG shows A. fib with RVR at 29 bpm. Chest x-ray shows stable COPD changes with the scattered pulmonary scarring. He was admitted for similar complaint with A. fib with RVR and E. coli UTI in February 2019. 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) Cardiomyopathy (Chronic) HTN (hypertension) (Chronic) Pulmonary emboli (Chronic) DVT (deep venous thrombosis) (Chronic) Chronic a-fib (Chronic) Tobacco dependence (Chronic) BPH (benign prostatic hyperplasia) (Chronic) Anxiety (Chronic) Medical History: Medical History (Last Reviewed 03/18/19 @ 06:45 by Rusty Neil MD) Other secondary pulmonary hypertension (Chronic) I27.29 Hyperlipidemia (Chronic) E78.5 Cardiomyopathy (Chronic) I42.9 HTN (hypertension) (Chronic) I10 DVT (deep venous thrombosis) (Chronic) Chronic a-fib (Chronic) I48.2 BPH (benign prostatic hyperplasia) (Chronic) N40.0 Allergies lisinopril Allergy (Verified 03/17/19 18:11) pain in legs, cant walk niacin Allergy (Verified 03/17/19 18:11) Rash acetaminophen [From Tylenol] Adverse Reaction (Severe, Verified 03/17/19 18:11) Chest pain guaifenesin [From Mucinex] Adverse Reaction (Severe, Verified 03/17/19 18:11) Chest pain nut - unspecified Adverse Reaction (Verified 05/05/19 03:34) Other popcorn Allergy (Unknown, Uncoded 03/17/19 18:11) Rash food color Adverse Reaction (Severe, Uncoded 03/17/19 18:11) Unknown Home Medications: Ambulatory Orders Medication Instructions Recorded Aspirin E.C. [Ecotrin] 81 mg PO DAILY@0800 03/12/15 Digoxin [Digox] 125 mg PO DAILY 03/12/15 Diltiazem HCl [Diltiazem 24Hr Cd] 120 mg PO DAILY 03/12/15 [place]-3S/Dha/Epa/Fish Oil/D3 [Fish 2 ea PO DAILY 03/12/15 Oil-Vit D3 Softgel] Tamsulosin HCl 0.4 mg PO QHS 03/12/15 Warfarin Sodium 4 mg PO SUTUWETHFRSA 03/12/15 Warfarin [Coumadin] 6 mg PO MO 03/12/15 Atorvastatin Calcium 20 mg PO DAILY 03/17/19 Fluticasone 0.05% [Flonase Nasal 1 spray NASAL DAILY PRN 03/17/19 [place]] Budesonide/Formoterol 160/4.5 2 puff IH BID 05/05/19 [Symbicort 160/4.5 Mcg Inhaler (SP)] Famotidine/Ca Carb/Mag Hydrox 1 tab PO 4X/DAY PRN PRN 05/05/19 [Acid Foam Charger Complete Tab Chew] Sodium Chloride [Saline Mist] 1 spray NASAL DAILY PRN 05/05/19 Surgical History: - - Full mouth extraction Psychiatric History: No pertinent psych hx Smoking Status: Current every day smoker Tobacco Use: Cigarettes Alcohol: None Drugs: None - *Family History Paternal History Items: - - Denies knowledge of any paternal medical history Maternal History Items: Heart Disease Review of Systems Constitutional: Reports: Weakness. Denies: Chills, Fever, Weight Change HEENT: Denies: Head Aches, Sinus Congestion, Sinus Drainage Cardiovascular: Reports: Palpitations. Denies: Chest Pain Respiratory: Reports: Cough, Shortness of breath at rest, Shortness of breath upon exertion, Sputum production - Chronic cough with whitish sputum secondary to emphysema: Getting better. Denies: Wheezing Gastrointestinal: Reports: Constipation. Denies: Abdominal Pain, Nausea, Vomiting Genitourinary: Reports: Frequency, Urgency. Denies: Dysuria Musculoskeletal: Denies: Joint Pain, Joint Tenderness Skin: Denies: Rash, Wounds Neurological: Denies: Balance problems, Focal weakness, Numbness, Tingling Psychiatric: Denies: Anxiety, Depression, Homicidal Ideations, Suicidal Ideations Hematologic/ Lymphatic: Denies: Easy Bruising, Easy Bleeding VTE Information - Inpt Only VTE Present on Admission: No VTE Mechan Device Prophylaxis: None Reason prophylaxis not ordered:: Procedure Not Indicated - On Coumadin INR therapeutic Patient Problems: Active and Suspected Problems (Last Reviewed 03/18/19 @ 06:45 by Rusty Neil MD) Atrial fibrillation with RVR (Acute) Complicated urinary tract infection (Acute) - Physical Exam General: Alert, Oriented x3, Cooperative HEENT: Atraumatic, PERRLA, EOMI, Normocephalic Oral: Dry Mucosa Neck: Supple, No JVD, Negative Carotid Bruits Lungs: No rhonchi, No wheeze, No rales, Diminished - Air entry diminished in all lung abernathy Cardiovascular: Normal S1, Normal S2, No murmurs, Irregular Rate, Tachycardic Abdomen: Bowel Sounds Present, Soft, Non Tender, Non-Distended Extremities: No edema, Capillary Refill Less than 3 Seconds Skin: No rashes, No breakdown Musculoskeletal: No Tenderness to Palpation of Joints or Extremities, Arthritic Changes Lymphatic: No Cervical, Supraclavicular, or Inguinal Adenopathy Neurological: Cranial nerves II-XII grossly intact, Deep Tendon Reflexes 2+/4 and Symmetrical, Neuro grossly intact, Motor Exam 5/5 strength throughout Psych/Mental Status: Normal Affect, Appropriate Vital Signs Temp Pulse Resp BP Pulse Ox 98.4 F 98 24 H 101/62 94 05/05/19 03:34 05/05/19 05:49 05/05/19 05:49 05/05/19 05:49 05/05/19 05:49 Oxygen Delivery Method Room Air Weight: 176 lb 5.917 oz Body Mass Index (BMI) 23.9 Laboratory Tests Past 24 Hrs 05/05/19 05/05/19 05/05/19 03:50 03:50 03:50 WBC 18.7 H RBC 4.59 L Hgb 14.1 Hct 43.2 MCV 94.1 H MCH 30.7 MCHC 32.6 RDW Std Deviation 48.9 H RDW Coeff of Maria Guadalupe 14.2 Plt Count 288 MPV 9.3 Immature Gran % (Auto) 0.500 Neut % (Auto) 78.6 H Lymph % (Auto) 12.1 L Schley % (Auto) 7.5 Eos % (Auto) 1.0 Baso % (Auto) 0.3 Absolute Neuts (auto) 14.7 H Absolute Lymphs (auto) 2.25 Nucleated RBC % 0 PT 28.2 H INR 2.6 Sodium 137 Potassium 4.2 Chloride 106 Carbon Dioxide 22.0 Anion Gap 9 BUN 18 Creatinine 0.98 Estim Creat Clear Calc 72.59 Est GFR (MDRD) Af Amer 96 Est GFR (MDRD) Non-Af 79 BUN/Creatinine Ratio 18.3 Glucose 110 H Calcium 8.8 Troponin I < 0.015 Urine Color Urine Clarity Urine pH Ur Specific Pipestem Urine Protein Urine Glucose (UA) Urine Ketones Urine Occult Blood Urine Nitrite Urine Bilirubin Urine Urobilinogen Ur Leukocyte Esterase Urine RBC Urine WBC Ur Squamous Epith Cells Urine Bacteria Urine Mucus 05/05/19 04:30 WBC RBC Hgb Hct MCV MCH MCHC RDW Std Deviation RDW Coeff of Maria Guadalupe Plt Count MPV Immature Gran % (Auto) Neut % (Auto) Lymph % (Auto) Schley % (Auto) Eos % (Auto) Baso % (Auto) Absolute Neuts (auto) Absolute Lymphs (auto) Nucleated RBC % PT INR Sodium Potassium Chloride Carbon Dioxide Anion Gap BUN Creatinine Estim Creat Clear Calc Est GFR (MDRD) Af Amer Est GFR (MDRD) Non-Af BUN/Creatinine Ratio Glucose Calcium Troponin I Urine Color Yellow Urine Clarity Sl. Cloudy Urine pH 6.0 Ur Specific Pipestem 1.015 Urine Protein 15 H Urine Glucose (UA) Normal Urine Ketones 15 H Urine Occult Blood 25 H Urine Nitrite Positive H Urine Bilirubin Negative Urine Urobilinogen Normal Ur Leukocyte Esterase 500 H Urine RBC 0 SEEN Urine WBC 25-50 SEEN Ur Squamous Epith Cells 0 SEEN Urine Bacteria 3+ Urine Mucus 0 SEEN Assessment/Plan All Active Problems (Last Reviewed 03/18/19 @ 06:45 by Rusty Neil MD) Atrial fibrillation with RVR (Acute) Complicated urinary tract infection (Acute) The patient is a 73 year old M with history of chronic A. fib on Coumadin was brought in to ER from [facility] for shortness of breath and palpitation, dizzy and lightheaded resulting into fall. In ED, he was found to be A. fib with RVR, heart rate 147/min, blood pressure 96/59, respiratory 23 and pulse ox 92% on room air. Basic blood work in ER shows leukocytosis 18.7 thousand, neutrophils 78%, INR 2 .6, UA positive of pyuria 25-50 cells, 3+ bacteria, nitrite positive and LE 500. EKG shows A. fib with RVR at 29 bpm. Chest x-ray shows stable COPD changes with the scattered pulmonary scarring. He was admitted for similar complaint with A. fib with RVR and E. coli UTI in February 2019. 1. Chronic A. fib with RVR mostly secondary to UTI: Patient had 20 mg IV Cardizem bolus resulting to drop of blood pressure to 96/59. Patient is being admitted in PCU. Patient is on digoxin 125 mcg daily, Cardizem CD 120 mg daily. No beta-jamin at home medications. Metoprolol 2.5 mg IV q. 4 hourly as n eeded for heart rate more than 120/min. Avoid Cardizem IV bolus as it is dropping blood pressure. INR 2.6. Continue Coumadin at lower dose 3 mg daily and adjust the dose as per INR. Monitor INR daily. Serial troponins and serum magnesium. Lipid profile a.m. TSH and digoxin level ordered Echo in March 2017 shows EF 55% with no regional wall motion abnormality. Mildly dilated RV with normal systolic function. LA mildly enlarged, RA mildly enlarged. Mild MR. Mild TR. RVSP 39 mmHg with mild pulmonary hypertension. Overall echo is suggestive of chronic heart failure with preserved EF and chronic cor pulmonale with mild pulmonary hypertension secondary to emphysema 2. SIRS (tachycardia, tachypnea and leukocytosis) sepsis secondary to complicated UTI with BPH: During previous admission in February 2019 for UTI with A. fib with RVR, urine culture positive of E. coli, pansensitive. IV fluid normal saline at 100 mils per hour. Started on ceftriaxone in the ER and will continue it. Urine culture sent from ER. Bladder scan every 4 hourly for postvoid residue and if significant, increase the dose of Flomax or may consult urologist. 3. Near syncope with fall most likely secondary to A. fib with RVR and sepsis/UTI: Patient denies chronic loss of balance/gait instability. He attributed his fall to dizziness. PT and OT ordered. Mild abrasion in the left frontal region. 4. COPD with tobacco abuse and smoking: Counseled to cease smoking. Nicotine patch ordered. Shortness of breath has resolved. Patient does not seem to be COPD exacerbation. Cough is getting better. On Symbicort. DuoNeb as needed for shortness of breath. Incentive spirometry and Mucinex and maintain bronchopulmonary hygiene. 5. Other comorbidities include hypertension, history of DVT on Coumadin DVT prophylaxis: Already on Coumadin. 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 This paper from intermediate which he states full code. When asked about the advanced directive/CODE STATUS he does not have good understanding of life restriction measures. Needs to talk further when patient is more on baseline health. Will maintain full code for now. Laboratory Results 05/05/19 03:50: WBC 18.7 H, RBC 4.59 L, Hgb 14.1, Hct 43.2, MCV 94.1 H, MCH 30.7, MCHC 32.6, RDW Std Deviation 48.9 H, RDW Coeff of Maria Guadalupe 14.2, Plt Count 288, MPV 9.3, Immature Gran % (Auto) 0.500, Neut % (Auto) 78.6 H, Lymph % (Auto) 12.1 L, Schley % (Auto) 7.5, Eos % (Auto) 1.0, Baso % (Auto) 0.3, Absolute Neuts (auto) 14.7 H, Absolute Lymphs (auto) 2.25, Nucleated RBC % 0 05/05/19 03:50: Sodium 137, Potassium 4.2, Chloride 106, Carbon Dioxide 22.0, Anion Gap 9, BUN 18, Creatinine 0.98, Estim Creat Clear Calc 72.59, Est GFR (MDRD) Af Amer 96, Est GFR (MDRD) Non-Af 79, BUN/Creatinine Ratio 18.3, Glucose 110 H, Calcium 8.8, Troponin I < 0.015 05/05/19 03:50: PT 28.2 H, INR 2.6 05/05/19 04:30: Urine Color Yellow, Urine Clarity Sl. Cloudy, Urine pH 6.0, Ur Specific Pipestem 1.015, Urine Protein 15 H, Urine Glucose (UA) Normal, Urine Ketones 15 H, Urine Occult Blood 25 H, Urine Nitrite Positive H, Urine Bilirubin Negative, Urine Urobilinogen Normal, Ur Leukocyte Esterase 500 H, Urine RBC 0 SEEN, Urine WBC 25-50 SEEN, Ur Squamous Epith Cells 0 SEEN, Urine Bacteria 3+, Urine Mucus 0 SEEN Clinical Impression(s) from Imaging Studies Chest X-Ray 05/05/19 04:12 IMPRESSION: Stable COPD changes Stable scattered pulmonary scarring Stable generalized osteopenia, stable mid thoracic spine kyphosis and stable multilevel mild to moderate mid thoracic spine compression fractures Code Visit Inpatient E&M: 34229 Init Hosp L3
[2019-05-05 07:10] LABS: Bedside Glucose 108 mg/dL (70-110)
--- NOTE | 2019-05-05 07:17 | CT_ITS ---
STUDY: CT BRAIN WITHOUT CONTRAST REASON FOR EXAM: Male, 73 years old. Fall, trauma on blood thinners RADIATION DOSAGE (If Supplied By Facility): CTDIvol = ( 44.99 ) mGy, DLP = ( 829.85 ) mGycm TECHNIQUE: Transaxial CT imaging of the brain was performed without administration of intravenous contrast material. Individualized dose optimization techniques were used for this CT. COMPARISON: 04/19/2017 FINDINGS: There are mild soft tissue hematomas. Normal calvarium. There are stable mild central and cortical involutional changes there are stable deep white matter periventricular hypodensities. Normal basal ganglia and thalami. Normal brainstem. Normal cerebellum. There is no intracranial hemorrhage. There are no findings of an acute ischemic infarction. Normal visualized paranasal sinuses. CT/Brain/Head without Contrast IMPRESSION: Stable mild central and cortical involutional changes Stable old small vessel deep white matter ischemic changes No intracerebral hemorrhage Mild soft tissue hematomas Electronically Signed: Yoan Levy, at 8:07 EDT Tel , Service support ,
--- NOTE | 2019-05-05 07:17 | PCM.PN.BLA ---
Progress Note Patient is a 73-year-old gentleman with history of paroxysmal atrial fibrillation who presented with palpitations generalized weakness and a fall. Patient was found to be in A. fib with RVR did receive Cardizem bolus admitted to monitored bed. Patient was also found to have UTI on admission for which Rocephin was started Stroke alert was called for the patient upon reaching the floor. Patient was felt to have a garbled speech as well as left facial droop. On further questioning patient admitted to this being his normal speech. 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 His NIH score was estimated to be 0. The stroke alert was therefore cancelled Did however order for CT of the head without contrast since patient did hit his head upon falling at his assisted living facility and more so patient is on Coumadin. Did review patient initial diagnostic work-up, history and physical as well as management orders. Will follow.
--- NOTE | 2019-05-05 07:44 | NURSING ---
Pt arrived from ED to room at 0625. Upon arrival this RN and Dione Reyes RN noticed pt with slurred speech and left sided facial droop. This RN asked transportation attendant if these were new symptoms. This RN tested NIHSS items which were otherwise unremarkable. This RN called down to ED to verify that the facial droop and speech were not new to this patient upon arrival to this facility and was informed that pt came in with clear speech and no obvious facial droop. Stroke alert called at approx [address] Harrell arrived to room, completed NIHSS, and determined that pt was scoring 0. Stroke alert cancelled.
[2019-05-05] MEDS: dilTIAZem CD 120 MG Capsule PO (07:45)
--- NOTE | 2019-05-05 08:03 | PCM.PN.BLA ---
Progress Note Hospitalist note: Responded to a stroke alert on this pt for slurred speech and facial droop. Pt is edentulous and has had surgery on the left side of the face. He is alert and oriented and appropriate. CN's II-XII grossly intact. There is a trace left corner of the mouth droop but when he smiles or attempts to grit his teeth the face is symmetrical 5/5 strength in all extremities Denies unilateral numbness and has intact sensation in all extremities. Is able to read and his speech is clear. He was able to identify all the objects and read all the words and sentences on the cards at the time of my exam. NIH is 0. He tells me his speech is like it always is. No need for CT at this time.
[2019-05-05 08:05] LABS: Cholesterol 94 mg/dL (200); High Density Lipoprotein 47 mg/dL; Triglycerides 65 mg/dL; Very Low Density Lipoprotein 13 mg/dL (5-40)
[2019-05-05] MEDS: 0.9% Normal Saline 1,000 ML 100 ML IV (08:18)
[2019-05-05 09:26] LABS: Digoxin Level 0.35 ng/mL (0.80-2.00)
[2019-05-05] MEDS: Digoxin 125 MCG Tablet PO (09:51)
[2019-05-05] MEDS: Aspirin E.C. 81 MG Tablet PO (09:52)
[2019-05-05] MEDS: Albuterol 2.5 MG/3 ML VIAL.NEB. INHALATION (13:16)
[2019-05-05] MEDS: Tamsulosin HCl 0.4 MG Capsule PO (21:30)
[2019-05-05] MEDS: Atorvastatin Calcium 20 MG Tablet PO (21:30)
[2019-05-06] VITALS (13 sets, daily range): BP systolic 107–114; BP diastolic 57–68; PULSE 62–103; RESP 15–20; TEMP 36.7–36.9; O2SAT 92–96
[2019-05-06 06:42] LABS: Absolute Lymphocyte Count 2.28 X10^3/uL (0.83-4.51); Absolute Neutrophil Count 7.5 X10^3/uL (2.0-7.7); Basophil# 0.05 X10^3/uL; Basophil% 0.4 % (0-1); Eosinophil# 0.44 X10^3/uL; Eosinophils% 3.9 % (0-5); Hematocrit 40.8 % (40-54); Hemoglobin 13.1 g/dL (13.0-16.5); Lymphocyte # 2.28 X10^3/ul (4.0); Lymphocyte % 20.1 % (19-41); Mean Corp Hgb Conc 32.1 g/dL (32-36); Mean Corpuscular Hgb 30.5 pg (27.0-32.0); Mean Corpuscular Volume 95.1 fL (80-94); Mean Platelet Vol. 9.4 fl (6.2-12.0); Monocyte% 9.7 % (0-10); NRBC Flagged by Analyzer 0 % (0-5); Neutrophil # 7.46 X10^3/uL (2.7-7.7); Neutrophil % 65.5 % (47-70); Platelet Count 261 K/mm3 (150-450); RBC Distribution Width CV 14.3 % (11.6-14.6); RBC Distribution Width SD 49.6 fl (35.1-43.9); Red Blood Count 4.29 M/mm3 (4.6-6.2); White Blood Count 11.4 K/mm3 (4.4-11.0)
[2019-05-06 06:48] LABS: International Normalized Ratio 2.4; Prothrombin Time (Protime)PT. 26.4 SECONDS (11.7-14.9)
[2019-05-06] MEDS: Albuterol 2.5 MG/3 ML VIAL.NEB. INHALATION ×3 (06:52→19:40)
[2019-05-06] MEDS: Budesonide Respules 0.5 MG/2 ML AMPUL.NEB. INHALATION ×2 (06:52→19:40)
[2019-05-06 07:13] LABS: Anion Gap 7 (5-15); BUN 16 mg/dL (7-18); BUN/Creat Ratio 24.9 RATIO (10-20); Calcium,Total 8.6 mg/dL (8.5-10.1); Chloride 110 mmol/L (98-107); Creatinine, Serum 0.64 mg/dL (0.70-1.30); EST Glomerular Filtration Rate 129 mL/min (>60); Est Glom Filt Rate - Afr Amer 156 mL/min (>60); Estimated Creatinine Clearance 69.67 ml/min; Glucose 89 mg/dL (74-106); Sodium Level 140 mmol/L (136-145); Thyroid Stim Hormone (TSH) 1.32 uIU/mL (0.358-3.74)
[2019-05-06] MEDS: Aspirin E.C. 81 MG Tablet PO (08:09)
[2019-05-06] MEDS: Digoxin 125 MCG Tablet PO (08:09)
[2019-05-06] MEDS: dilTIAZem CD 120 MG Capsule PO (08:09)
[2019-05-06] MEDS: Ceftriaxone 1 GM/50 ML BAG IV (09:21)
[2019-05-06] MEDS: 0.9% NaCl Peripheral Flush Adult/Peds IV (09:21)
--- NOTE | 2019-05-06 11:38 | CASEMGMT ---
VIVEK confirmed with patient that his plan is to return to [facility]. He would like the [facility] van to transport him back at d/c. Neeru COBOS MSW
--- NOTE | 2019-05-06 13:57 | PN_ITS ---
Patient Problems: Active and Suspected Problems (Last Reviewed 03/18/19 @ 06:45 by Rusty Neil MD) Atrial fibrillation with RVR (Acute) Complicated urinary tract infection (Acute) Subjective: Feels much better today since the initiation of antibiotics. Denies any fevers or chills. Vitals/I&O's: Vital Signs Temp Pulse Resp BP Pulse Ox 98.0 F 88 20 H 107/64 95 05/06/19 09:05 05/06/19 12:41 05/06/19 12:41 05/06/19 09:05 05/06/19 09:05 Oxygen Delivery Method Room Air Weight: 167 lb 8.821 oz Body Mass Index (BMI) 22.8 Intake and Output for Last 24 Hours 05/04/19 05/05/19 05/06/19 23:59 23:59 23:59 Intake Total 1969 460 / 460 Balance 1969 460 / 460 General: Alert, Oriented x3, Cooperative, No apparent distress HEENT: Atraumatic, PERRLA, EOMI, Normocephalic Oral: Moist Mucosa Neck: Supple, No JVD Lungs: Clear to auscultation, Normal air movement, No rhonchi, No wheeze, No rales, Diminished Cardiovascular: Regular rate, Regular Rhythm, Normal S1, Normal S2, No murmurs Abdomen: Soft, Non Tender, Non-Distended, No Hepato-splenomegaly Extremities: No edema, Capillary Refill Less than 3 Seconds Skin: No rashes, No breakdown Neurological: Neuro grossly intact, Sensory exam intact to light touch and pain Psych/Mental Status: Normal Affect, Appropriate Microbiology Past 72 Hours 05/05/19 04:30 Urine, Catheterized Urine Culture - Preliminary Presumptive E. coli Laboratory Results 05/06/19 06:10: WBC 11.4 H, RBC 4.29 L, Hgb 13.1, Hct 40.8, MCV 95.1 H, MCH 30.5, MCHC 32.1, RDW Std Deviation 49.6 H, RDW Coeff of [place] 14.3, Plt Count 261, MPV 9.4, Immature Gran % (Auto) 0.400, Neut % (Auto) 65.5, Lymph % (Auto) 20.1, [place] % (Auto) 9.7, Eos % (Auto) 3.9, Baso % (Auto) 0.4, Absolute Neuts (auto) 7.5, Absolute Lymphs (auto) 2.28, Nucleated RBC % 0 05/06/19 06:10: PT 26.4 H, INR 2.4 05/06/19 06:10: Sodium 140, Potassium 4.0, Chloride 110 H, Carbon Dioxide 23.0, Anion Gap 7, BUN 16, Creatinine 0.64 L, Estim Creat Clear Calc 69.67, Est GFR (MDRD) Af Amer 156, Est GFR (MDRD) Non-Af 129, BUN/Creatinine Ratio 24.9 H, Glucose 89, Calcium 8.6, TSH 1.32 Current Medications Al Hydroxide/Mg Hydroxide (Mylanta Ii) 30 ml PO Q6H PRN PRN PRN Reason: Gastric Burning Albuterol Sulfate (Ventolin Aerosols) 2.5 mg INHALATION Q2H PRN PRN PRN Reason: SOB/Wheezing Albuterol Sulfate (Ventolin Aerosols) 2.5 mg INHALATION Q6HWA.RT [facility] Last Admin: 05/06/19 12:41 Dose: 2.5 mg Documented by: Aspirin (Ecotrin) 81 mg PO DAILY@0800 [facility] Last Admin: 05/06/19 08:09 Dose: 81 mg Documented by: Atorvastatin Calcium (Lipitor) 20 mg PO QHS [facility] Last Admin: 05/05/19 21:30 Dose: 20 mg Documented by: Budesonide (Pulmicort Aerosol) 0.5 mg INHALATION Q12H.RT [facility] Last Admin: 05/06/19 06:52 Dose: 0.5 mg Documented by: Dextrose (D50w Syringe) 0 gm IV X1 PRN; Protocol PRN Reason: Hypoglycemia Digoxin (Lanoxin) 125 mcg PO DAILY [facility] Last Admin: 05/06/19 08:09 Dose: 125 mcg Documented by: Diltiazem HCl (Cardizem Cd) 120 mg PO DAILY [facility] Last Admin: 05/06/19 08:09 Dose: 120 mg Documented by: Fluticasone Propionate (Flonase Nasal [place]) 1 spray NASAL DAILY PRN PRN PRN Reason: allergic rhinitis Glucagon () 1 mg IM .X1 PRN PRN Reason: Hypoglycemia Guaifenesin (Robitussin) 20 ml PO Q4H PRN PRN PRN Reason: COUGH Sodium Chloride () 250 mls @ 15 mls/hr IV .[id number] PRN PRN Reason: SALINE FLUSH Ceftriaxone Sodium (Rocephin) 1 gm in 50 mls @ 100 mls/hr IV Q24 [facility] Last Infusion: 05/06/19 10:00 Dose: Infused Documented by: Metoprolol Tartrate (Lopressor ([place])) 2.5 mg IV Q4H PRN PRN PRN Reason: HR>120/m Morphine Sulfate () 2 mg IV Q3H PRN PRN PRN Reason: Pain Score 6-10/10 Nitroglycerin (Nitrostat) 0.4 mg SUBLINGUAL Q5M PRN PRN Reason: CARDIAC/CHEST PAIN Oxycodone HCl (Oxyir) 5 mg PO Q4H PRN PRN PRN Reason: Pain Score 4-5/10 Polyethylene Glycol (Miralax) 17 gm PO DAILY [facility] Last Admin: 05/06/19 08:10 Dose: Not Given Documented by: Prochlorperazine Edisylate (Compazine Iv) 5 mg IV Q4H PRN PRN PRN Reason: Breakthrough Nausea/Vomiting Senna/Docusate Sodium (Senokot-S, Faina-Colace) 2 tablet PO BID PRN PRN PRN Reason: Constipation Sodium Chloride () 5 - 15 ml IV UD PRN PRN Reason: SALINE FLUSH Last Admin: 05/06/19 09:21 Dose: 10 ml Documented by: Sodium Chloride ([place] Nasal [place]) 1 spray NASAL DAILY PRN PRN PRN Reason: ALLERGIES Tamsulosin HCl (Flomax) 0.4 mg PO QHS [facility] Last Admin: 05/05/19 21:30 Dose: 0.4 mg Documented by: Warfarin Sodium (Coumadin (Pbkc)) 3 mg PO DAILY@1700 [facility] Last Admin: 05/05/19 17:42 Dose: 3 mg Documented by: STROKE Vital Signs/Narrative: Vital Signs Pulse Resp 05/06/19 12:41 88 20 H 05/06/19 10:58 88 Medical Necessity - Tobacco Use Smoking Status: Current every day smoker Tobacco Use: Cigarettes Assessment/Plan All Active Problems (Last Reviewed 03/18/19 @ 06:45 by Rusty Neil MD) Atrial fibrillation with RVR (Acute) Complicated urinary tract infection (Acute) 1. Sepsis secondary to UTI -Prelim urine culture demonstrating E. coli, sensitivities pending -Continue with Rocephin -Sepsis has resolved 2. A. fib with RVR/near syncope with a fall secondary to A. fib and sepsis from UTI/HTN -Rate became controlled with continued antibiotic support as well as his home medications of Cardizem and metoprolol -Continue with digoxin, his concentration was low -INR is 2.4 will monitor, continue with Coumadin 3. BPH -Stable -Continue with Flomax 4. COPD with a history of tobacco abuse -Advised to quit smoking -Continue with a nicotine patch -Not currently with an exacerbation, will continue with his home inhalers DVT: Coumadin Code Visit Inpatient E&M: 93992 Subs Hosp L2
[2019-05-06] MEDS: Atorvastatin Calcium 20 MG Tablet PO (21:19)
[2019-05-06] MEDS: Tamsulosin HCl 0.4 MG Capsule PO (21:19)
[2019-05-07] VITALS (10 sets, daily range): BP systolic 110–119; BP diastolic 52–69; PULSE 82–145; RESP 12–20; TEMP 36.6–36.7; O2SAT 93–98
[2019-05-07] MEDS: Budesonide Respules 0.5 MG/2 ML AMPUL.NEB. INHALATION (07:28)
[2019-05-07] MEDS: Albuterol 2.5 MG/3 ML VIAL.NEB. INHALATION ×2 (07:28→13:06)
[2019-05-07] MEDS: dilTIAZem CD 120 MG Capsule PO (08:49)
[2019-05-07] MEDS: Ceftriaxone 1 GM/50 ML BAG IV (08:49)
[2019-05-07] MEDS: Digoxin 125 MCG Tablet PO (08:49)
[2019-05-07] MEDS: 0.9% NaCl Peripheral Flush Adult/Peds IV ×2 (08:49→09:49)
[2019-05-07] MEDS: Aspirin E.C. 81 MG Tablet PO (08:49)
--- NOTE | 2019-05-07 08:59 | PCM.DC ---
- Discharge Diagnoses Current Active Problems: Current Active and Chronic Problems (Last Reviewed 03/18/19 @ 06:45 by Rusty Neil MD) Atrial fibrillation with RVR (Acute) Complicated urinary tract infection (Acute) You will use the following diet at home:: Cardiac Your food should be the consistency of: Regular Your liquids should be the consistency of: Regular/Thin Discharge Activity: Return to Normal Activity Call your doctor if you observe: Fever of 101 or Higher, Shortness of breath, Dizziness, Fainting spells, Swelling in the ankles, Chest pain, Increased palpitations (irregular heartbeat) Additional Instructions: Obtain an INR in 2-3 days since you are on an antibiotic that can affect your coumadin dosing. Allergies/Adverse Reactions: Allergies lisinopril Allergy (Verified 03/17/19 18:11) pain in legs, cant walk niacin Allergy (Verified 03/17/19 18:11) Rash acetaminophen [From Tylenol] Adverse Reaction (Severe, Verified 03/17/19 18:11) Chest pain guaifenesin [From Mucinex] Adverse Reaction (Severe, Verified 03/17/19 18:11) Chest pain nut - unspecified Adverse Reaction (Verified 05/05/19 03:34) Other popcorn Allergy (Unknown, Uncoded 03/17/19 18:11) Rash Medications to take at Discharge Aspirin E.C. [Ecotrin] 81 mg PO DAILY@0800 03/12/15 Digoxin [Digox] 125 mg PO DAILY 03/12/15 Diltiazem HCl [Diltiazem 24Hr Cd] 120 mg PO DAILY 03/12/15 [place]-3S/Dha/Epa/Fish Oil/D3 [Fish Oil-Vit D3 Softgel] 2 ea PO DAILY 03/12/15 Tamsulosin HCl 0.4 mg PO QHS 03/12/15 Warfarin Sodium 4 mg PO SUTUWETHFRSA 03/12/15 Warfarin [Coumadin] 6 mg PO MO 03/12/15 Atorvastatin Calcium 20 mg PO DAILY 03/17/19 Fluticasone 0.05% [Flonase Nasal [place]] 1 spray NASAL DAILY PRN 03/17/19 Budesonide/Formoterol 160/4.5 [Symbicort 160/4.5 Mcg Inhaler (SP)] 2 puff IH BID 05/05/19 Famotidine/Ca Carb/Mag Hydrox [Acid Charge Hand Complete Tab Chew] 1 tab PO 4X/DAY PRN PRN 05/05/19 Sodium Chloride [Saline Mist] 1 spray NASAL DAILY PRN 05/05/19 Cephalexin [Keflex] 500 mg PO Q8 #15 cap 05/07/19 The following prescriptions were given: Cephalexin [Keflex] 500 mg PO Q8 #15 cap Transmission Status: Pending to [facility] Primary Care Physician: Danny Helton MD [Primary Care Provider] - Please follow up with your Primary Care Physician in: 3-5 days Test Results: Test results from this visit will be discussed in further detail at your follow-up appointment, if applicable.
[2019-05-07] MEDS: Metoprolol Tartrate 5 MG/5 ML Vial 2.5 MG IV (09:49)
--- NOTE | 2019-05-07 10:31 | CASEMGMT ---
Patient may be discharged later today depending on his medical condition. He needs the hospital van to give him a ride back to [facility]. VIVEK set up for van transport today at 330. VIVEK did let them know SW may have to cancel if patient's medical condition has not improved. VIVEK notified RN and patient. VIVEK also called [facility] and let the nurse know this information. Plan: d/c back to [facility] CARLOS COBOS MSW
--- NOTE | 2019-05-07 14:56 | NURSING ---
REPORT CALLED TO DARIUSZ AT [facility]
--- NOTE | 2019-05-07 15:21 | CASEMGMT ---
VIVEK faxed d/c instructions to [facility]. Neeru SMITH
--- NOTE | 2019-05-07 15:34 | CASEMGMT ---
VIVEK spoke with Kayla from [facility]. She asked if patient was returning with the Keflex. VIVEK told her he is not as SW was told they have their own pharmacy. She said they need the med list and prescriptions before 3. VIVEK told her patient is leaving in 5 minutes so it is not likely he can get his scripts filled before he leaves. VIVEK will check with physician to see if it is ok for him to start his keflex tomorrow. VIVEK sent physician a text and he said it would be fine for patient to start his antibiotic tomorrow. VIVEK called [facility] back and left them a voice mail letting them know this information. Neeru COBOS MSW
--- NOTE | 2019-05-07 16:40 | PCM.DC.SUM ---
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) Cardiomyopathy (Chronic) HTN (hypertension) (Chronic) Pulmonary emboli (Chronic) DVT (deep venous thrombosis) (Chronic) Chronic a-fib (Chronic) Tobacco dependence (Chronic) BPH (benign prostatic hyperplasia) (Chronic) Anxiety (Chronic) Hospital Course and Treatment Imaging Results: CXR: IMPRESSION: Stable COPD changes Stable scattered pulmonary scarring Stable generalized osteopenia, stable mid thoracic spine kyphosis and stable multilevel mild to moderate mid thoracic spine compression fractures CT Brain: IMPRESSION: Stable mild central and cortical involutional changes Stable old small vessel deep white matter ischemic changes No intracerebral hemorrhage Mild soft tissue hematomas Consults: None Operations: None Procedures: None Summary of Care Provided: Per HPI: The patient is a 73 year old M with history of chronic A. fib on Coumadin was brought in to ER from [facility] for shortness of breath and palpitation. He woke up with palpitation and shortness of breath and felt dizzy and lightheaded and then fell on the ground and hit his head in the left frontal region and got a small bump and abrasion. No loss of consciousness. Patient denies any chest pain. In ED, he was found to be A. fib with RVR, heart rate 147/min, blood pressure 96/59, respiratory 23 and pulse ox 92% on room air. He also complained of increased frequency and urgency but denies burning micturition/perineal pain. History of COPD with chronic cough with whitish sputum which is getting better. He still feels mucus in the chest and difficulty in expectoration. Basic blood work in ER shows leukocytosis 18.7 thousand, neutrophils 78%, INR 2.6, UA positive of pyuria 25-50 cells, 3+ bacteria, nitrite positive and LE 500. EKG shows A. fib with RVR at 29 bpm. Chest x-ray shows stable COPD changes with the scattered pulmonary scarring. He was admitted for similar complaint with A. fib with RVR and E. coli UTI in February 2019. Hospital Course: 1. Secondary to [id number]-old male who is from an assisted living had an episode of palpitations and lightheadedness with syncope at the assisted living facility. When he came in he was found that he had a UTI and he met Sirs criteria with his white count and his heart rate. He was started on IV fluids as well as antibiotics and the urine culture was obtained that showed ultimately a pansensitive E. coli. He was started on Rocephin and admitted to the hospital. With the improvement in his symptoms from his UTI, his heart rate improved on his baseline home medications. Once sensitivities were obtained and his white count had essentially returned back to normal, he was discharged back to the assisted living on Keflex to complete 5 more days of therapy. 2. A. fib with RVR/near syncope with a fall secondary to A. fib and sepsis from UTI/HTN-after admission with the treatment of his UTI his A. fib with RVR did resolve on his home medication of Cardizem 120 mg daily. However on the day of discharge she was working with PT and his heart rate jumped up and given the fact that his blood pressures were a little bit low in the low 100s, even though he was asymptomatic I decided to increase his Cardizem from 120 daily to 120 twice daily to see if that helps control his heart rate and at least until the urinary tract infection is completely resolved. I do recommend that he follow-up with cardiology as an outpatient for further assessment of his medications and to make any further adjustments. His INR during his stay have been stable with his last INR being at 2.4, however since he is being discharged on antibiotics I do recommend that he have this checked in 2 or 3 days. Also given his RVR a TSH which was obtained which was normal at 1.32. 3. His other medical diagnoses were evaluated and his home medications were continued where appropriate Objective: General: Alert, Oriented x3, Cooperative, No apparent distress HEENT: Atraumatic, PERRLA, EOMI, Normocephalic Oral: Moist Mucosa Neck: Supple, No JVD Lungs: Clear to auscultation, Normal air movement, No rhonchi, No wheeze, No rales, Diminished Cardiovascular: Regular rate, Regular Rhythm, Normal S1, Normal S2, No murmurs Abdomen: Soft, Non Tender, Non-Distended, No Hepato-splenomegaly Extremities: No edema, Capillary Refill Less than 3 Seconds Skin: No rashes, No breakdown Neurological: Neuro grossly intact, Sensory exam intact to light touch and pain Psych/Mental Status: Normal Affect, Appropriate - Physical Exam Vital Signs Temp Pulse Resp BP Pulse Ox 98.1 F 89 16 119/52 L 95 05/07/19 15:19 05/07/19 15:19 05/07/19 15:19 05/07/19 15:19 05/07/19 15:19 Oxygen Delivery Method Room Air Weight: 167 lb 1.766 oz Body Mass Index (BMI) 22.8 Intake and Output for Last 24 Hours 05/05/19 05/06/19 05/07/19 23:59 23:59 23:59 Intake Total 1969 910 / 910 700 / 700 Balance 1969 910 / 910 700 / 700 Microbiology Past 72 Hours 05/05/19 04:30 Urine Culture - Final Urine, Catheterized Presumptive E. coli Discharge Activity: Return to Normal Activity Call your doctor if you observe: Fever of 101 or Higher, Shortness of breath, Dizziness, Fainting spells, Swelling in the ankles, Chest pain, Increased palpitations (irregular heartbeat) Home Medications: Medications to take at Discharge Aspirin E.C. [Ecotrin] 81 mg PO DAILY@0800 03/12/15 Digoxin [Digox] 125 mg PO DAILY 03/12/15 [place]-3S/Dha/Epa/Fish Oil/D3 [Fish Oil-Vit D3 Softgel] 2 ea PO DAILY 03/12/15 Tamsulosin HCl 0.4 mg PO QHS 03/12/15 Warfarin Sodium 4 mg PO SUTUWETHFRSA 03/12/15 Warfarin [Coumadin] 6 mg PO MO 03/12/15 Atorvastatin Calcium 20 mg PO DAILY 03/17/19 Fluticasone 0.05% [Flonase Nasal [place]] 1 spray NASAL DAILY PRN 03/17/19 Budesonide/Formoterol 160/4.5 [Symbicort 160/4.5 Mcg Inhaler (SP)] 2 puff IH BID 05/05/19 Famotidine/Ca Carb/Mag Hydrox [Acid Hospital Education Coordinator Complete Tab Chew] 1 tab PO 4X/DAY PRN PRN 05/05/19 Sodium Chloride [Saline Mist] 1 spray NASAL DAILY PRN 05/05/19 Cephalexin [Keflex] 500 mg PO Q8 #15 cap 05/07/19 Diltiazem HCl [Cardizem] 120 mg PO BID #60 tab 05/07/19 Following Prescrptions Were Given to Patient: Diltiazem HCl [Cardizem] 120 mg PO BID #60 tab Prescription Printed Cephalexin [Keflex] 500 mg PO Q8 #15 cap Prescription Printed Primary Care Physician: Danny Helton MD [Primary Care Provider] - Please follow up with your Primary Care Physician in: 3-5 days Please Follow Up With: Danny Helton MD Disposition: Asstd Living/Non-Skill HI Minutes spent on discharge:: 35 Patient Condition:: Stable Medical Necessity - Tobacco Use Smoking Status: Current every day smoker Tobacco Use: Cigarettes Meaningful Use Info Meaningful Use Diagnoses (Choose all that apply): None applicable Code Visit Inpatient E&M: 63930 Disch Hosp
== END 2019-05-07 09:01 | disposition home or self-care (01) | DRG 690 ==
LOC: ED 05:51 → PCU 06:19
PROVIDERS: Internal Medicine; Admitting Provider Internal Medicine; Emergency Provider Emergency Medicine; Family Provider Family Medicine; PCP Family Medicine; Visit Provider Family Medicine
DX: N39.0 Urinary tract infection, site not specified (principal); I48.20 Chronic atrial fibrillation, unspecified; N40.0 Benign prostatic hyperplasia without lower urinary tract symptoms; R55 Syncope and collapse; S00.81XA Abrasion of other part of head, initial encounter; W18.30XA Fall on same level, unspecified, initial encounter; Y92.091 Bathroom in other non-institutional residence as the place of occurrence of the external cause; I10 Essential (primary) hypertension; B96.20 Unspecified Escherichia coli [E. coli] as the cause of diseases classified elsewhere; F17.210 Nicotine dependence, cigarettes, uncomplicated; J44.9 Chronic obstructive pulmonary disease, unspecified; I27.29 Other secondary pulmonary hypertension; M46.92 Unspecified inflammatory spondylopathy, cervical region; E78.5 Hyperlipidemia, unspecified; Z79.01 Long term (current) use of anticoagulants; Z86.718 Personal history of other venous thrombosis and embolism; F41.9 Anxiety disorder, unspecified; Z87.440 Personal history of urinary (tract) infections
CPT/HCPCS: 36415; 70450; 71046; 80048; 80061; 80162; 81001; 82962; 83735; 84443; 84484; 85025; 85610; 87086; 87088; 87186; 93005; 94640; 97162; 97165; 99285; J7030; J7050; A4216

== ENCOUNTER 2021-09-19 19:10 | Inpatient (IN) | payer MEDICARE, MEDICAID, SELFPAY ==
[2021-09-19 19:15] VITALS: BP 134/76; PULSE 74; RESP 28; TEMP 36.9; O2SAT 92; BMI 26.4
[2021-09-19 19:20] VITALS: BP 134/76; PULSE 74; RESP 28; TEMP 36.9; O2SAT 92
--- NOTE | 2021-09-19 20:02 | EKG12_ITS ---
Test Reason : DYSRHYTHMIA Blood Pressure : / mmHG Vent. Rate : 098 BPM Atrial Rate : 110 BPM P-R Int : 000 ms QRS Dur : 068 ms QT Int : 356 ms P-R-T Axes : 000 055 043 degrees QTc Int : 454 ms Atrial fibrillation Nonspecific ST abnormality Abnormal ECG Confirmed by KISHAN MISTRY, LAURA ([id number]), mapping editor FLORENCE NEGRETE ([id number]) on 09/21/2021 11:13:14 AM Referred By: OMER Confirmed By:LAURA HOLLEY MD
--- NOTE | 2021-09-19 20:03 | EDS_ITS ---
HPI History of Present Illness Chief Complaint: Anxiety Narrative Narrative: Patient presents from assisted living facility with reported anxiety and shortness of breath. He states approximately an hour and a half prior to arrival he was sitting and felt heart palpitations and mild anxiety. He denies any hallucinations or suicidal ideation. He did feel short of breath at the time. That has essentially resolved. He has past medical history of atrial fibrillation on Coumadin. He denies any fevers or chills. No cough. No leg swelling. [facility] Medical History (Updated 09/19/21 @ 21:59 by Apolinar Phan MD) Anxiety Ataxia Atrial fibrillation with RVR BPH (benign prostatic hyperplasia) Cardiomyopathy Cervical arthritis DVT (deep venous thrombosis) Essential (primary) hypertension Hyperlipidemia Longstanding persistent atrial fibrillation Other secondary pulmonary hypertension Pulmonary emboli Home Medications [id number] oil-D3 2 ea PO DAILY 03/12/15 [History Last Taken 03/15/19 07:00] tamsulosin 0.4 mg PO QHS 03/12/15 [History Last Taken 03/17/19 19:00] warfarin 4 mg PO SUMOWETHFRSA 03/12/15 [History Last Taken 03/17/19 17:00] warfarin 6 mg PO TU 03/12/15 [History Last Taken 03/11/19 17:00] fluticasone propionate 1 spray NASAL DAILY PRN 03/17/19 [History Last Taken Unknown] famotidine-Ca carb-mag hydrox 1 tab PO 4X/DAY PRN PRN 05/05/19 [History Last Taken Unknown] sodium chloride 1 spray NASAL DAILY PRN 05/05/19 [History Last Taken Unknown] budesonide-formoterol HFA 160 mcg-4.5 mcg/actuation aerosol inhaler 2 inh INHAL ATION BID g 04/14/21 [History Last Taken Unknown] metoprolol tartrate 25 mg tablet 25 mg PO BID #180 tab 04/16/21 [Rx Last Taken Unknown] Allergy/AdvReac Type Severity Reaction Status Date / Time lisinopril Allergy pain in Verified 04/14/21 10:00 legs, cant walk niacin Allergy Rash Verified 04/14/21 10:00 acetaminophen [From Tylenol] AdvReac Severe Chest pain Verified 04/14/21 10:00 guaifenesin [From Mucinex] AdvReac Severe Chest pain Verified 04/14/21 10:00 nut - unspecified AdvReac Other Verified 04/14/21 10:00 popcorn Allergy Unknown Rash Uncoded 04/14/21 10:00 Family History (Updated 09/19/21 @ 22:[address] Rusty Neil MD) Other Hypertension Surgical History (Updated 09/19/21 @ 22:[address] Rusty Neil MD) H/O tooth extraction Social History Smoking Status: Current every day smoker tobacco type: cigarettes Tobacco: How many years used: 53 ROS ROS ED ROS Narrative Constitutional: No fever, no chills. HEENT: No sore throat. No neck pain. No loss of vision. No rhinorrhea. Cardiovascular: No chest pain. Positive palpitations. No pedal edema. Respiratory: No cough, positive shortness of breath-improved. Abdominal: No abdominal pain. No nausea. No vomiting. Genitourinary: No dysuria. No hematuria. Musculoskeletal: No myalgias. No arthralgias. Neurologic: No headaches. No dizziness. No lightheadedness. Skin: No rash. No change in color. Psychiatric: No depression. No anxiety. EXAM Physical Exam Narrative Exam Narrative: Afebrile. Vital signs noted. HEENT: Normocephalic. Atraumatic. PERRL, EOMI. Neck soft and supple. No point tenderness or step off. Cardiovascular: Irregularly irregular with intermittent tachycardia, no murmurs, rubs, or gallops appreciated. Respiratory: No tachypnea. Lungs clear to auscultation bilaterally. Gastrointestinal: Abdomen soft, nontender, with normoactive bowel sounds. No rebound or guarding. Neurological: Awake. Alert. Nonfocal, nonlateralizing. Skin: No rash. Normal color. No pallor. Musculoskeletal: No pedal edema. Full range of motion extremities. Const Vital Signs: 09/19/21 19:15 09/19/21 19:20 09/19/21 21:01 Temperature 98.5 F 98.5 F Temperature Source Temporal Temporal Pulse Rate 74 74 112 H Respiratory Rate 28 H 28 H 29 H Blood Pressure 134/76 H 134/76 H 107/71 Blood Pressure Mean 95 95 83 Pulse Ox 92 92 94 Oxygen Delivery Method Room Air Room Air Room Air 09/19/21 21:06 09/19/21 23:02 09/19/21 23:03 Temperature 100.9 F H Temperature Source Temporal Pulse Rate 106 H 101 H Respiratory Rate 28 H 24 H Blood Pressure 107/68 107/68 Blood Pressure Mean 81 81 Pulse Ox 94 93 94 Oxygen Delivery Method Room Air Room Air Room Air MDM MDM MDM Narrative Medical decision making narrative: Comprehensive work-up was pursued. He has elevated white count of 19.4, hemoglobin stable at 15.6, normal platelet count of 256. He has a chloride of 109 with a normal sodium of 138. Potassium is normal at 4.1. Initial troponin is negative at 11. His chest x-ray shows left lower lobe infiltrate. BNP normal at 89.5. He was started on IV antibiotics for his pneumonia. He then had increased heart rate in the 150s with his atrial fibrillation. His initial EKG demonstrated atrial fibrillation that was rate controlled at 98. He was given Lopressor. I discussed the patient with the hospitalist. He will be admitted most likely to the PCU but he wanted a lactic acid performed. His only slightly elevated 2.0. However, the patient did have an increased temperature to 100.9 ?F. He will be given Tylenol. He will be admitted for his atrial fibrillation and for his left lower lobe pneumonia. Disposition is admit in stable condition. Lab Data Attestation: I reviewed the patient's lab results. Labs: Laboratory Results - last 24 hr 09/19/21 09/19/21 09/19/21 21:15 21:15 21:15 WBC 19.4 H RBC 4.92 Hgb 15.6 Hct 45.5 MCV 92.5 MCH 31.7 MCHC 34.3 RDW Std Deviation 44.7 H RDW Coeff of Maria Guadalupe 13.1 Plt Count 256 MPV 9.4 Immature Gran % (Auto) 0.500 Neut % (Auto) 89.3 H Lymph % (Auto) 4.6 L [place] % (Auto) 5.2 Eos % (Auto) 0.2 Baso % (Auto) 0.2 Absolute Neuts (auto) 17.3 H Absolute Lymphs (auto) 0.90 Nucleated RBC % 0 PT INR Sodium 138 Potassium 4.1 Chloride 109 H Carbon Dioxide 22.0 Anion Gap 7 BUN 20 H Creatinine 0.95 Estim Creat Clear Calc 71.47 Est GFR (MDRD) Af Amer 99 Est GFR (MDRD) Non-Af 82 BUN/Creatinine Ratio 21.1 H Glucose 105 Lactic Acid Calcium 9.1 Magnesium Troponin I High Sens 11 B-Natriuretic Peptide 89.5 09/19/21 09/19/21 09/19/21 21:15 21:15 22:12 WBC RBC Hgb Hct MCV MCH MCHC RDW Std Deviation RDW Coeff of Maria Guadalupe Plt Count MPV Immature Gran % (Auto) Neut % (Auto) Lymph % (Auto) [place] % (Auto) Eos % (Auto) Baso % (Auto) Absolute Neuts (auto) Absolute Lymphs (auto) Nucleated RBC % PT 28.1 H INR 2.7 Sodium Potassium Chloride Carbon Dioxide Anion Gap BUN Creatinine Estim Creat Clear Calc Est GFR (MDRD) Af Amer Est GFR (MDRD) Non-Af BUN/Creatinine Ratio Glucose Lactic Acid 2.0 Calcium Magnesium 2.0 Troponin I High Sens B-Natriuretic Peptide Radiography Diagnostic Testing: Clinical Impression(s) from Imaging Studies Chest X-Ray 09/19/21 20:15 IMPRESSION: 1. Left lower lobe increased attenuation suspected represent infection. 2. Mild emphysematous changes. Electronically Signed: Kevin Choi DO at 21:14 EST , Discharge Plan Dx/Rx/DC Orders Clinical Impression: Left lower lobe pneumonia, Atrial fibrillation with RVR Disposition Disposition: Acute Care Hospital [facility]
--- NOTE | 2021-09-19 20:15 | RAD_ITS ---
INDICATION: chest pain EXAMINATION/TECHNIQUE: X-RAY - XR Chest 1 View COMPARISON: CT chest 03/18/2018 and chest x-ray 03/17/2019 FINDINGS: LINES/DEVICES: None. LUNGS: Increased lung volumes with mild increased lucency in the apices suggesting emphysema. Left lower lobe, likely retrocardiac region increased attenuation appears increased compared to prior chest x-rays. Infectious etiology suspected. No pleural effusion. No pneumothorax. Left upper hilar nodule, 5 x 8 mm, unchanged compared to prior x-rays. MEDIASTINUM AND CARDIOVASCULAR STRUCTURES: Normal size and contour of the cardiomediastinal silhouette. No evidence of pulmonary vascular congestion. BONES AND SOFT TISSUES: No abnormality within limits of the exam. RAD/Chest 1 View (Portable) IMPRESSION: 1. Left lower lobe increased attenuation suspected represent infection. 2. Mild emphysematous changes. Electronically Signed: Kevin Choi DO at 21:14 EST ,
[2021-09-19 21:01] VITALS: BP 107/71; PULSE 112; RESP 29; O2SAT 94
[2021-09-19 21:06] VITALS: O2SAT 94
[2021-09-19 21:27] LABS: Absolute Neutrophil Count 17.3 X10^3/uL (2.0-7.7); Basophil# 0.04 X10^3/uL; Basophil% 0.2 % (0-1); Eosinophil# 0.03 X10^3/uL; Eosinophils% 0.2 % (0-5); Hematocrit 45.5 % (40-54); Hemoglobin 15.6 g/dL (13.0-16.5); Lymphocyte % 4.6 % (19-41); Mean Corp Hgb Conc 34.3 g/dL (32-36); Mean Corpuscular Hgb 31.7 pg (27.0-32.0); Mean Corpuscular Volume 92.5 fL (80-94); Mean Platelet Vol. 9.4 fl (6.2-12.0); Monocyte# 1.01 X10^3/uL; Monocyte% 5.2 % (0-10); NRBC Flagged by Analyzer 0 % (0-5); Neutrophil # 17.34 X10^3/uL (2.7-7.7); Neutrophil % 89.3 % (47-70); Platelet Count 256 K/mm3 (150-450); RBC Distribution Width CV 13.1 % (11.6-14.6); RBC Distribution Width SD 44.7 fl (35.1-43.9); Red Blood Count 4.92 M/mm3 (4.6-6.2); White Blood Count 19.4 K/mm3 (4.4-11.0)
[2021-09-19 21:36] LABS: International Normalized Ratio 2.7; Prothrombin Time (Protime)PT. 28.1 SECONDS (11.7-14.9)
[2021-09-19 21:45] LABS: BNP,B-Type NATRIURETIC PEPTIDE 89.5 pg/mL (0-100)
[2021-09-19 21:50] LABS: Anion Gap 7 (5-15); BUN 20 mg/dL (7-18); BUN/Creat Ratio 21.1 RATIO (10-20); Calcium,Total 9.1 mg/dL (8.5-10.1); Chloride 109 mmol/L (98-107); Creatinine, Serum 0.95 mg/dL (0.70-1.30); EST Glomerular Filtration Rate 82 mL/min (>60); Est Glom Filt Rate - Afr Amer 99 mL/min (>60); Estimated Creatinine Clearance 71.47 ml/min; Glucose 105 mg/dL (74-106); Potassium 4.1 mmol/L (3.5-5.1); Sodium Level 138 mmol/L (136-145); Troponin-I HS 11 pg/mL (3.0-78.0)
[2021-09-19] MEDS: Metoprolol Tartrate 5 MG/5 ML Vial IV (22:20)
--- NOTE | 2021-09-19 22:30 | PCM.HP.STD ---
HPI - General General Date of Admission: 09/19/21 HPI Narrative QUE KAMARA, is a 76 M with a significant history of Afib and tobacco abuse and who lives at the [facility] presenting with heart racing. His symptoms started on the same day of presentation. Associated with his symptoms is sneezing and productive cough of clear sputum. He denies anorexia, fever or chills. At the ED he was found to be in Afib with RVR and was given IV metoprolol since at home he takes metoprolol po. ON LICENSE OF [facility] Medical History (Updated 09/19/21 @ 23:44 by Apolinar Phan MD) Anxiety Ataxia Atrial fibrillation with RVR BPH (benign prostatic hyperplasia) Cardiomyopathy Cervical arthritis DVT (deep venous thrombosis) Essential (primary) hypertension Hyperlipidemia Longstanding persistent atrial fibrillation Other secondary pulmonary hypertension Pulmonary emboli Home Medications [id number] oil-D3 2 ea PO DAILY 03/12/15 [History Last Taken 03/15/19 07:00] tamsulosin 0.4 mg PO QHS 03/12/15 [History Last Taken 03/17/19 19:00] warfarin 4 mg PO SUMOWETHFRSA 03/12/15 [History Last Taken 03/17/19 17:00] warfarin 6 mg PO TU 03/12/15 [History Last Taken 03/11/19 17:00] fluticasone propionate 1 spray NASAL DAILY PRN 03/17/19 [History Last Taken Unknown] famotidine-Ca carb-mag hydrox 1 tab PO 4X/DAY PRN PRN 05/05/19 [History Last Taken Unknown] sodium chloride 1 spray NASAL DAILY PRN 05/05/19 [History Last Taken Unknown] budesonide-formoterol HFA 160 mcg-4.5 mcg/actuation aerosol inhaler 2 inh INHALATION BID g 04/14/21 [History Last Taken Unknown] metoprolol tartrate 25 mg tablet 25 mg PO BID #180 tab 04/16/21 [Rx Last Taken Unknown] Allergy/AdvReac Type Severity Reaction Status Date / Time lisinopril Allergy pain in Verified 04/14/21 10:00 legs, cant walk niacin Allergy Rash Verified 04/14/21 10:00 acetaminophen [From Tylenol] AdvReac Severe Chest pain Verified 04/14/21 10:00 guaifenesin [From Mucinex] AdvReac Severe Chest pain Verified 04/14/21 10:00 nut - unspecified AdvReac Other Verified 04/14/21 10:00 popcorn Allergy Unknown Rash Uncoded 04/14/21 10:00 Family History (Updated 09/19/21 @ 22:[address] Rusty Neil MD) Other Hypertension Surgical History (Updated 09/19/21 @ 22:[address] Rusty Neil MD) H/O tooth extraction Social History Smoking Status: Current every day smoker tobacco type: cigarettes Tobacco: How many years used: 53 ROS ROS Narrative Pertinent positives and pertinent negatives as noted in HPI. All other systems were reviewed and are negative. Vital Signs Vital Signs Vital Signs: 09/19/21 19:15 09/19/21 19:20 09/19/21 21:01 Temperature 98.5 F 98.5 F Temperature Source Temporal Temporal Pulse Rate 74 74 112 H Respiratory Rate 28 H 28 H 29 H Blood Pressure 134/76 H 134/76 H 107/71 Blood Pressure Mean 95 95 83 Pulse Ox 92 92 94 Oxygen Delivery Method Room Air Room Air Room Air 09/19/21 21:06 Temperature Temperature Source Pulse Rate Respiratory Rate Blood Pressure Blood Pressure Mean Pulse Ox 94 Oxygen Delivery Method Room Air Weight Weight: 88.2 kg Body Mass Index (BMI) 26.4 Physical Exam Narrative Physical exam: General: Well-nourished, well-developed. Head: Normocephalic, atraumatic, no tenderness Eyes: PERRLA, EOMI ENT, no trauma, moist mucous membranes, no rhinorrhea Neck: Nontender, full range of motion, no spinal tenderness, deformities, step-off CVS: Irregularly irregular rate and rhythm. Tachycardia. S1-S2 present. No murmur, gallop or rub. Respiratory : Tachypnea, clear to auscultation bilaterally, chest wall nontender, no wheezing Abdomen: Soft, nontender, nondistended, normal bowel sounds, no masses : Deferred Back: Nontender, no CVA tenderness, no midline spinal tenderness, deformities, step-offs Extremities: Nontender full range of motion, no trauma Skin: Normal color, no trauma, abrasions Neuro: Alert, oriented, cranial nerves II through XII grossly intact. Psychiatry: Normal mood. Normal affect. Not depressed. Not anxious. Results Lab / Micro Data Result Diagrams: 09/19/21 21:15 09/19/21 21:15 Labs: Laboratory Results - last 24 hr 09/19/21 21:15: WBC 19.4 H, RBC 4.92, Hgb 15.6, Hct 45.5, MCV 92.5, MCH 31.7, MCHC 34.3, RDW Std Deviation 44.7 H, RDW Coeff of Maria Guadalupe 13.1, Plt Count 256, MPV 9.4, Immature Gran % (Auto) 0.500, Neut % (Auto) 89.3 H, Lymph % (Auto) 4.6 L, [place] % (Auto) 5.2, Eos % (Auto) 0.2, Baso % (Auto) 0.2, Absolute Neuts (auto) 17.3 H, Absolute Lymphs (auto) 0.90, Nucleated RBC % 0 09/19/21 21:15: Sodium 138, Potassium 4.1, Chloride 109 H, Carbon Dioxide 22.0, Anion Gap 7, BUN 20 H, Creatinine 0.95, Estim Creat Clear Calc 71.47, Est GFR (MDRD) Af Amer 99, Est GFR (MDRD) Non-Af 82, BUN/Creatinine Ratio 21.1 H, Glucose 105, Calcium 9.1, Troponin I High Sens 11 09/19/21 21:15: B-Natriuretic Peptide 89.5 09/19/21 21:15: PT 28.1 H, INR 2.7 Radiology Impression Chest X-Ray 09/19/21 20:15 IMPRESSION: 1. Left lower lobe increased attenuation suspected represent infection. 2. Mild emphysematous changes. Electronically Signed: Kevin Choi DO at 21:14 EST , Assessment & Plan Assessment/Plan (1) Left lower lobe pneumonia: (2) Atrial fibrillation with RVR: PLAN: Left lower lobe pneumonia Gram-positive, or gram-negative. T-max of 100.9 Respiratory rate highest of 29. White count of 19.4. Patient meets SIRS criteria. However qSOFA is 1. Sepsis ruled out. Chest x-ray was visualized and independently interpreted. Agrees with radiologist interpretation of opacity at left lower lobe. Given ceftriaxone azithromycin emergency department. We will start the patient on amiodarone will avoid azithromycin and Levaquin. Doxycycline and ceftriaxone ordered. A fib with RVR EKG reviewed showed atrial fibrillation. Patient with rapid ventricular response on monitor. Blood pressure is soft. Patient received metoprolol IV push at emergency department. Will start patient on amiodarone drip. Admit to progressive care unit. INR is therapeutic. Coumadin continued. Trend PT/INR. Potassium level is normal. Check magnesium. Check TSH. No echocardiogram in Hospital System. Echocardiogram ordered. DVT prophylaxis Not indicated since INR is therapeutic on Lovenox. Charges/Coding Visit Charges Inpatient E&M: 53116 Init Hosp L3
[2021-09-19 23:02] VITALS: BP 107/68; PULSE 106; RESP 28; O2SAT 93
[2021-09-19 23:03] VITALS: BP 107/68; PULSE 101; RESP 24; TEMP 38.3; O2SAT 94
[2021-09-20] VITALS (35 sets, daily range): BP systolic 72–135; BP diastolic 57–101; PULSE 71–126; RESP 15–26; TEMP 36.8–38.3; O2SAT 92–97; BMI 22.4
[2021-09-20] MEDS: Aspirin 325 MG Tablet PO (00:07)
[2021-09-20 00:11] LABS: Troponin-I HS 15 pg/mL (3.0-78.0)
--- NOTE | 2021-09-20 01:00 | ECHOD_ITS ---
Reason For Study: Afib, Aflutter Procedure This was a 2D Doppler, Color Flow transthoracic echocardiogram. Exam performed portable in patient room. Left Ventricle Normal LV size. Moderate concentric left ventricular hypertrophy. Left ventricular systolic function is normal. The estimated ejection fraction is 55 %. No regional wall motion abnormalities noted. Right Ventricle Normal RV size. Normal systolic function. Atria Normal left atrium. Normal right atrium. Mitral Valve Normal mitral valve. Tricuspid Valve Normal tricuspid valve. Mild (1+) tricuspid valve insufficiency. Pulmonary artery systolic pressure is 36 mmHg. Aortic Valve Trisinus/trileaflet aortic valve. Pulmonic Valve Normal pulmonic valve. Great Vessels Normal aortic root. The pulmonary artery is normal size. Normal inferior vena cava. Pericardium/Pleural No pericardial effusion. MMode/2D Measurements & Calculations LVIDd: 3.9 cm IVSd: 1.5 cm Ao root diam: 2.7 cm LVIDs: 2.8 cm LVPWd: 1.3 cm RVDd: 3.2 cm FS: 27.9 % LAV(MOD-bp): 79.8 ml LVAd ap4: 19.8 cm2 SV(MOD-sp4): 28.7 ml LAV(MOD-bp) Indexed: 38.0 ml/m2 LVLd ap4: 6.7 cm LAV(MOD-sp2): 88.3 ml EDV(MOD-sp4): 47.0 ml LAV(MOD-sp4): 69.8 ml EDV(sp4-el): 49.2 ml LVAs ap4: 11.5 cm2 LVLs ap4: 6.2 cm ESV(MOD-sp4): 18.3 ml ESV(sp4-el): 18.3 ml EF(MOD-sp4): 61.1 % EF(sp4-el): 62.8 % SV(sp4-el): 30.9 ml LA A4 area: 24.1 cm2 LA dimension(2D): 4.9 cm RA A4 area: 20.7 cm2 Doppler Measurements & Calculations MV E max juany: 116.7 cm/sec Ao V2 max: 131.6 cm/sec LV V1 max: 101.8 cm/sec Ao max P.9 mmHg LV V1 max P.1 mmHg Ao V2 mean: 90.9 cm/sec Ao mean P.6 mmHg Ao V2 VTI: 22.4 cm PA V2 max: 79.1 cm/sec TR max juany: 281.7 cm/sec TR max P.7 mmHg ECHO/Echo Complete Interpretation Summary Normal LV size. Moderate concentric left ventricular hypertrophy. Pulmonary artery systolic pressure is 36 mmHg. Left ventricular systolic function is normal. The estimated ejection fraction is 55 %. Ordering Physician: Agyepong, Rusty Referring Physician: Danny Helton Performed By: Viviana Macias, ROSY, RVT
[2021-09-20] MEDS: 0.9% Saline Lock 10 ML Syringe IV ×2 (01:55→22:51)
[2021-09-20 02:16] LABS: Reflex Lactate? Y
[2021-09-20 02:41] LABS: Absolute Lymphocyte Count 1.57 X10^3/uL (0.83-4.51); Absolute Neutrophil Count 22.2 X10^3/uL (2.0-7.7); Basophil# 0.05 X10^3/uL; Basophil% 0.2 % (0-1); Hematocrit 42.2 % (40-54); Hemoglobin 14.5 g/dL (13.0-16.5); Lymphocyte # 1.57 X10^3/ul (0.83-4.51); Lymphocyte % 6.1 % (19-41); Mean Corp Hgb Conc 34.4 g/dL (32-36); Mean Corpuscular Hgb 32.7 pg (27.0-32.0); Mean Platelet Vol. 9.4 fl (6.2-12.0); Monocyte% 6.2 % (0-10); NRBC Flagged by Analyzer 0 % (0-5); Neutrophil % 86.7 % (47-70); POSITIVE DIFFERENTIAL YES; Platelet Count 252 K/mm3 (150-450); RBC Distribution Width CV 13.2 % (11.6-14.6); RBC Distribution Width SD 47.1 fl (35.1-43.9); Red Blood Count 4.44 M/mm3 (4.6-6.2); White Blood Count 25.6 K/mm3 (4.4-11.0)
[2021-09-20 02:44] LABS: Differential Indicated SCAN CRITERIA MET
[2021-09-20 03:00] LABS: Differential Comment SCANNED
[2021-09-20 03:03] LABS: International Normalized Ratio 2.9; Prothrombin Time (Protime)PT. 29.3 SECONDS (11.7-14.9)
[2021-09-20 03:08] LABS: Lactic Acid 1.3 mmol/L (0.4-1.9)
[2021-09-20 03:15] LABS: Anion Gap 7 (5-15); BUN 23 mg/dL (7-18); BUN/Creat Ratio 20.9 RATIO (10-20); Chloride 108 mmol/L (98-107); EST Glomerular Filtration Rate 69 mL/min (>60); Est Glom Filt Rate - Afr Amer 83 mL/min (>60); Estimated Creatinine Clearance 59.53 ml/min; Glucose 120 mg/dL (74-106); Potassium 4.2 mmol/L (3.5-5.1); Sodium Level 135 mmol/L (136-145); Thyroid Stim Hormone (TSH) 0.51 uIU/mL (0.358-3.74)
[2021-09-20] MEDS: Albuterol 2.5 MG/3 ML VIAL.NEB. INHALATION ×3 (07:12→19:22)
[2021-09-20] MEDS: Budesonide Respules 0.5 MG/2 ML AMPUL.NEB. INHALATION ×2 (07:12→19:22)
[2021-09-20] MEDS: Amiodarone 360 MG in Dextrose 5% Viaflo Bag 192.8 ML 16.7 MG CONT INF (07:43)
[2021-09-20] MEDS: Metoprolol Tartrate 25 MG Tablet PO (09:27)
--- NOTE | 2021-09-20 09:42 | CASEMGMT ---
Patient is from [facility]. VIVEK faxed updates. VIVEK will check with patient to verify his plan is to return to [facility]. Neeru COBOS
--- NOTE | 2021-09-20 10:35 | CASEMGMT ---
VIVEK spoke with patient and he plans on returning to [facility] at discharge. Patient will need transportation back to [place]. Neeru Mcknight MSW CHANDRIKA
--- NOTE | 2021-09-20 11:24 | CASEMGMT ---
VIVEK spoke with Beena STAHL at [facility]. Patient normally does not use any assistive devices to get around. Neeru Mcknight MSW CHANDRIKA
--- NOTE | 2021-09-20 11:34 | NURSING ---
oil laboratory analyst FAVIO Pickett to floor to get pt for cardioversion, report given.
--- NOTE | 2021-09-20 14:24 | CHAPLAIN ---
Type of Pastoral Visit _x__ Initial Visit ___ Follow-up Visit ___ On-call Visit ___ General Patient Visit ___ Spiritual Assessment ___ Family Conference ___ Bereavement ___ Rapid Response ___ Code Blue ___ Other (describe below) Pastoral Care Referral From _x__ Patient ___ Family ___ Nurse ___ Physician ___ County Manager ___ Barrel Bung Remover And Dumper ___ Other (describe below) Sacrament/Intervention _x__ Active listening ___ Anointing ___ Samaritan ___ Bereavement ___ Communion ___ Steph exploration ___ _x__ Life review _x__ Prayer ___ Reconciliation ___ Sacrament of Sick _x__ Supportive presence ___ Wedding ___ Other (describe below) Pastoral Comments patient has been seen before in previous admission; pt is willing to talk; pt concern is about his heart; pt speaks of his move to [facility] and how he likes it; pt finds peace by listening to sports on the radio
--- NOTE | 2021-09-20 15:45 | CT_ITS ---
STUDY: CT Chest W/O Contrast Injection 09/20/2021 5:10 PM REASON FOR EXAM: Male, 76 years old. ? pneumonia, pulmonary nodule LLL pneumonia on XR. Palpitations Sneezing Productive cough Individualized dose optimization techniques were used for this CT. TECHNIQUE: Transaxial imaging was performed withoutIV contrast material. COMPARISON: 01.02.Mar 18 2019 10:51am FINDINGS: There are degenerative changes of the shoulders. There is no pneumothorax. Left lower lobe pulmonary fibrosis with overlying pneumonia. There are scattered blebs and bullae. This can be seen in pulmonary emphysema. There are calcifications of the coronary arteries. There is a small pericardial effusion. There are multiple small lymph nodes within the mediastinum, which are normal in size and morphology most compatible with reactive lymph hyperplasia. Normal hilar regions. Normal pulmonary arteries. There is atherosclerotic calcification of the aortic arch with tortuosity and elongation of the aortic arch and descending thoracic aorta. There are multi-level degenerative changes of the thoracic spine. There are hypodensities in the left kidney. These are consistent for cysts. No follow up required. Stable midthoracic spine compression deformities. CT/Chest without Contrast IMPRESSION: Left lower lobe pulmonary fibrosis with overlying pneumonia. Electronically Signed: Hari Pak MD at 17:14 EST ,
--- NOTE | 2021-09-20 19:29 | PCM.PN.HOSP ---
Subjective Subjective Patient was seen and examined today, he appears comfortable at rest on no oxygen at this time, I have reviewed the patient's chest x-ray and there appears to be an infiltrate in the left lower lobe but due to the fact that the patient has a history of pulmonary scarring, I ordered a CT of the chest today-this showed underlying scarring and an area of pneumonia in the left lower lobe. Patient will remain on IV antibiotics at this time, labs will be obtained tomorrow morning. Objective Data Objective Data Vital Signs: Vital Signs Temp Pulse Resp BP Pulse Ox 98.5 F 88 16 114/71 95 09/20/21 16:30 09/20/21 19:23 09/20/21 19:23 09/20/21 16:30 09/20/21 19:24 Oxygen Delivery Method Room Air Weight: 74.8 kg Body Mass Index (BMI) 22.4 Intake & Output: Intake and Output for Last 24 Hours 09/18/21 09/19/21 09/20/21 23:59 23:59 23:59 Intake Total 50 / 50 1691.66 / 1691.66 Output Total 720 / 720 Balance 50 / 50 971.66 / 971.66 Lab / Micro Data Result Diagrams: 09/20/21 02:30 09/20/21 02:30 Labs: Laboratory Results - last 24 hr 09/19/21 21:15: WBC 19.4 H, RBC 4.92, Hgb 15.6, Hct 45.5, MCV 92.5, MCH 31.7, MCHC 34.3, RDW Std Deviation 44.7 H, RDW Coeff of Maria Guadalupe 13.1, Plt Count 256, MPV 9.4, Immature Gran % (Auto) 0.500, Neut % (Auto) 89.3 H, Lymph % (Auto) 4.6 L, Reynolds % (Auto) 5.2, Eos % (Auto) 0.2, Baso % (Auto) 0.2, Absolute Neuts (auto) 17.3 H, Absolute Lymphs (auto) 0.90, Nucleated RBC % 0 09/19/21 21:15: Sodium 138, Potassium 4.1, Chloride 109 H, Carbon Dioxide 22.0, Anion Gap 7, BUN 20 H, Creatinine 0.95, Estim Creat Clear Calc 71.47, Est GFR (MDRD) Af Amer 99, Est GFR (MDRD) Non-Af 82, BUN/Creatinine Ratio 21.1 H, Glucose 105, Calcium 9.1, Troponin I High Sens 11 09/19/21 21:15: B-Natriuretic Peptide 89.5 09/19/21 21:15: PT 28.1 H, INR 2.7 09/19/21 21:15: Magnesium 2.0 09/19/21 22:12: Lactic Acid 2.0 09/19/21 23:50: Troponin I High Sens 15 09/20/21 02:30: WBC 25.6 H, RBC 4.44 L, Hgb 14.5, Hct 42.2, MCV 95.0 H, MCH 32.7 H, MCHC 34.4, RDW Std Deviation 47.1 H, RDW Coeff of Maria Guadalupe 13.2, Plt Count 252, MPV 9.4, Immature Gran % (Auto) 0.800, Neut % (Auto) 86.7 H, Lymph % (Auto) 6.1 L, Reynolds % (Auto) 6.2, Eos % (Auto) 0.0, Baso % (Auto) 0.2, Absolute Neuts (auto) 22.2 H, Absolute Lymphs (auto) 1.57, Nucleated RBC % 0, Differential Comment SCANNED, Diff Path Review November09/20/21 02:30: PT 29.3 H, INR 2.9 09/20/21 02:30: Sodium 135 L, Potassium 4.2, Chloride 108 H, Carbon Dioxide 20.0 L, Anion Gap 7, BUN 23 H, Creatinine 1.10, Estim Creat Clear Calc 59.53, Est GFR (MDRD) Af Amer 83, Est GFR (MDRD) Non-Af 69, BUN/Creatinine Ratio 20.9 H, Glucose 120 H, Calcium 9.0, TSH 0.51 09/20/21 02:30: Lactic Acid 1.3 Micro: Microbiology 09/20/21 14:55 Urine, Clean Catch Legionella Antigen - Final 09/20/21 14:55 Urine, Clean Catch Streptococcus pneumoniae Antigen (M - Final 09/19/21 23:40 Nasal Secretion SARS-CoV-2 Antigen (Rapid) - Final Radiography Diagnostic Testing: Radiology Impression Chest X-Ray 09/19/21 20:15 IMPRESSION: 1. Left lower lobe increased attenuation suspected represent infection. 2. Mild emphysematous changes. Electronically Signed: Kevin Choi DO at 21:14 EST , Echocardiogram 09/20/21 01:00 Interpretation Summary Normal LV size. Moderate concentric left ventricular hypertrophy. Pulmonary artery systolic pressure is 36 mmHg. Left ventricular systolic function is normal. The estimated ejection fraction is 55 %. Ordering Physician: Rusty Neil Referring Physician: Danny Helton Performed By: Viviana Macias, PRABHACS, RVT Chest CT 09/20/21 15:45 IMPRESSION: Left lower lobe pulmonary fibrosis with overlying pneumonia. Electronically Signed: Hari Pak MD at 17:14 EST , Physical Exam Const alert, oriented x3, no apparent distress and healthy appearing General Appearance: cooperative, well kempt and well developed Orientation / Consciousness: awake, oriented to person, oriented to place and oriented to time HEENT normocephalic and moist oral mucous membranes Eyes PERRL, EOMs intact bilaterally and conjunctivae normal Neck nuchal rigidity, supple, no JVD, thyroid normal and no carotid bruits General: trachea midline Resp normal respiratory effort and clear to auscultation bilaterally Auscultation: Negative for rales, rhonchi or wheezes Cardio no murmurs, no rub and no gallops Cardio Narrative: Heart rate and rhythm is irregular GI normal to inspection, nondistended, normoactive bowel sounds, soft to palpation, non-tender and non-distended Extremity no clubbing, cyanosis or edema Skin no rashes or lesions noted General Skin Exam: no breakdown Neuro oriented x3, CN's II-XII intact bilaterally, no focal motor deficits and no sensory deficits noted Sensorium / Orientation: awake and alert Speech: speech normal Psych affect normal Assessment & Plan Assessment/Plan (1) Atrial fibrillation with RVR: PLAN: 1. Acute sepsis secondary to left lower lobe pneumonia-continue doxycycline and Rocephin at this time, labs will be rechecked tomorrow #2 chronic atrial fibrillation with rapid ventricular response-I have elected to take the patient off amiodarone at this time, I have increased the patient's beta-jamin. #3 chronic obstructive pulmonary disease-continue present treatment including aerosol treatments #4 essential hypertension-patient will remain on his present medications #5 chronic atrial fibrillation-patient currently is on warfarin, he will continue on rate limiting medication at this time, patient's INR today was 2.9 #6 chronic anticoagulation with Coumadin-patient's INR today was 2.9, monitor INR as needed Charges/Coding Visit Charges Inpatient E&M: 78618 Subs Hosp L2
[2021-09-20] MEDS: Ceftriaxone 1 GM/50 ML BAG IV (22:51)
[2021-09-20] MEDS: Metoprolol Tartrate 50 MG Tablet PO (22:55)
[2021-09-20] MEDS: Tamsulosin HCl 0.4 MG Capsule PO (22:56)
[2021-09-21] VITALS (16 sets, daily range): BP systolic 92–128; BP diastolic 59–84; PULSE 78–120; RESP 16–20; TEMP 36.8–37.7; O2SAT 91–98
[2021-09-21 06:52] LABS: Absolute Lymphocyte Count 1.46 X10^3/uL (0.83-4.51); Absolute Neutrophil Count 12.1 X10^3/uL (2.0-7.7); Basophil# 0.04 X10^3/uL; Basophil% 0.3 % (0-1); Eosinophil# 0.13 X10^3/uL; Eosinophils% 0.8 % (0-5); Hematocrit 41.3 % (40-54); Hemoglobin 13.8 g/dL (13.0-16.5); Lymphocyte # 1.46 X10^3/ul (0.83-4.51); Lymphocyte % 9.5 % (19-41); Mean Corp Hgb Conc 33.4 g/dL (32-36); Mean Corpuscular Hgb 32.2 pg (27.0-32.0); Mean Corpuscular Volume 96.5 fL (80-94); Monocyte# 1.57 X10^3/uL; Monocyte% 10.2 % (0-10); NRBC Flagged by Analyzer 0 % (0-5); Neutrophil # 12.07 X10^3/uL (2.7-7.7); Neutrophil % 78.7 % (47-70); POSITIVE DIFFERENTIAL YES; Platelet Count 216 K/mm3 (150-450); RBC Distribution Width CV 13.3 % (11.6-14.6); RBC Distribution Width SD 47.8 fl (35.1-43.9); Red Blood Count 4.28 M/mm3 (4.6-6.2); White Blood Count 15.4 K/mm3 (4.4-11.0)
[2021-09-21 06:57] LABS: Differential Indicated SCAN CRITERIA MET
[2021-09-21 06:58] LABS: International Normalized Ratio 2.4; Prothrombin Time (Protime)PT. 25.3 SECONDS (11.7-14.9)
[2021-09-21] MEDS: Budesonide Respules 0.5 MG/2 ML AMPUL.NEB. INHALATION ×2 (07:25→19:40)
[2021-09-21] MEDS: Albuterol 2.5 MG/3 ML VIAL.NEB. INHALATION ×3 (07:26→19:40)
[2021-09-21] MEDS: Metoprolol Tartrate 50 MG Tablet PO ×2 (08:00→20:49)
[2021-09-21] MEDS: 0.9% Saline Lock 10 ML Syringe IV (09:55)
--- NOTE | 2021-09-21 15:22 | CASEMGMT ---
VIVEK spoke with Beena STAHL at [facility] and let her know patient may be returning tomorrow. Neeru Mcknight [employer] CHANDRIKA
--- NOTE | 2021-09-21 19:11 | PN.HOSP_ITS ---
Subjective Subjective Patient was seen and examined today, he still remains on room air, patient's white blood cell count was 15.4 today, he appears comfortable. Patient's heart rate is in the 80s and 90s for the most part, I do not feel I need to increase the patient's beta-jamin at this time. Objective Data Objective Data Vital Signs: Vital Signs Temp Pulse Resp BP Pulse Ox 98.4 F 96 18 128/74 H 96 09/21/21 16:10 09/21/21 16:10 09/21/21 16:10 09/21/21 16:10 09/21/21 16:10 Oxygen Delivery Method Room Air Weight: 74.8 kg Body Mass Index (BMI) 22.4 Intake & Output: Intake and Output for Last 24 Hours 09/19/21 09/20/21 09/21/21 23:59 23:59 23:59 Intake Total 50 / 50 1741.66 / 1741.66 1400 / 1400 Output Total 720 / 1170 1700 / 1700 Balance 50 / 50 1021.66 / 571.66 -300 / -300 Lab / Micro Data Result Diagrams: 09/21/21 05:40 09/20/21 02:30 Labs: Laboratory Results - last 24 hr 09/21/21 05:40: PT 25.3 H, INR 2.4 09/21/21 05:40: WBC 15.4 H, RBC 4.28 L, Hgb 13.8, Hct 41.3, MCV 96.5 H, MCH 32.2 H, MCHC 33.4, RDW Std Deviation 47.8 H, RDW Coeff of Maria Guadalupe 13.3, Plt Count 216, MPV 10.0, Immature Gran % (Auto) 0.500, Neut % (Auto) 78.7 H, Lymph % (Auto) 9.5 L, [place] % (Auto) 10.2 H, Eos % (Auto) 0.8, Baso % (Auto) 0.3, Absolute Neuts (auto) 12.1 H, Absolute Lymphs (auto) 1.46, Nucleated RBC % 0, Diff Path Review November Micro: Microbiology 09/20/21 14:55 Urine, Clean Catch Legionella Antigen - Final 09/20/21 14:55 Urine, Clean Catch Streptococcus pneumoniae Antigen (M - Final 02/27/22 23:40 Nasal Secretion SARS-CoV-2 Antigen (Rapid) - Final Physical Exam Narrative alert, oriented x3, no apparent distress and healthy appearing General Appearance: cooperative, well kempt and well developed Orientation / Consciousness: awake, oriented to person, oriented to place and oriented to time HEENT normocephalic and moist oral mucous membranes Eyes PERRL, EOMs intact bilaterally and conjunctivae normal Neck nuchal rigidity, supple, no JVD, thyroid normal and no carotid bruits General: trachea midline Resp normal respiratory effort and clear to auscultation bilaterally Auscultation: Negative for rales, rhonchi or wheezes Cardio no murmurs, no rub and no gallops Cardio Narrative: Heart rate and rhythm is irregular GI normal to inspection, nondistended, normoactive bowel sounds, soft to palpation, non-tender and non-distended Extremity no clubbing, cyanosis or edema Skin no rashes or lesions noted General Skin Exam: no breakdown Neuro oriented x3, CN's II-XII intact bilaterally, no focal motor deficits and no sen liseth deficits noted Sensorium / Orientation: awake and alert Speech: speech normal Psych affect normal Assessment & Plan Assessment/Plan (1) Left lower lobe pneumonia: (2) Atrial fibrillation with RVR: PLAN: 1. Community-acquired pneumonia-organism unknown at this time, continue present antibiotic treatment #2 chronic atrial fibrillation with rapid ventricular response-patient will remain on a beta-jamin at this time for rate control #3 chronic obstructive pulmonary disease-continue present treatment including aerosol treatments #4 essential hypertension-patient will remain on his present medications #5 chronic atrial fibrillation-patient currently is on warfarin, he will continue on rate limiting medication at this time, patient's INR today was 2.4 #6 chronic anticoagulation with Coumadin-patient's INR today was 2.4, monitor INR as needed Sepsis was ruled out. Charges/Coding Visit Charges Inpatient E&M: 33089 Subs Hosp L2
[2021-09-21] MEDS: Tamsulosin HCl 0.4 MG Capsule PO (20:49)
[2021-09-21] MEDS: Ceftriaxone 1 GM/50 ML BAG IV (20:59)
[2021-09-22] VITALS (19 sets, daily range): BP systolic 100–121; BP diastolic 65–70; PULSE 70–134; RESP 17–20; TEMP 36.8–36.9; O2SAT 93–100
[2021-09-22 05:48] LABS: Absolute Lymphocyte Count 1.53 X10^3/uL (0.83-4.51); Absolute Neutrophil Count 9.4 X10^3/uL (2.0-7.7); Basophil# 0.03 X10^3/uL; Basophil% 0.2 % (0-1); Eosinophil# 0.25 X10^3/uL; Eosinophils% 1.9 % (0-5); Hematocrit 38.4 % (40-54); Hemoglobin 12.8 g/dL (13.0-16.5); Lymphocyte # 1.53 X10^3/ul (0.83-4.51); Lymphocyte % 11.9 % (19-41); Mean Corp Hgb Conc 33.3 g/dL (32-36); Mean Corpuscular Hgb 31.1 pg (27.0-32.0); Mean Corpuscular Volume 93.4 fL (80-94); Mean Platelet Vol. 9.5 fl (6.2-12.0); Monocyte# 1.58 X10^3/uL; Monocyte% 12.3 % (0-10); NRBC Flagged by Analyzer 0 % (0-5); Neutrophil # 9.42 X10^3/uL (2.7-7.7); Neutrophil % 73.2 % (47-70); POSITIVE DIFFERENTIAL YES; Platelet Count 220 K/mm3 (150-450); RBC Distribution Width CV 13.1 % (11.6-14.6); Red Blood Count 4.11 M/mm3 (4.6-6.2); White Blood Count 12.9 K/mm3 (4.4-11.0)
[2021-09-22 05:49] LABS: Differential Indicated SCAN CRITERIA MET
[2021-09-22 06:04] LABS: International Normalized Ratio 2.5; Prothrombin Time (Protime)PT. 25.9 SECONDS (11.7-14.9)
[2021-09-22 06:12] LABS: Differential Comment SCANNED
[2021-09-22] MEDS: Budesonide Respules 0.5 MG/2 ML AMPUL.NEB. INHALATION ×2 (07:55→19:36)
[2021-09-22] MEDS: Albuterol 2.5 MG/3 ML VIAL.NEB. INHALATION ×3 (07:56→19:36)
[2021-09-22] MEDS: Metoprolol Tartrate 50 MG Tablet PO ×2 (10:29→21:05)
[2021-09-22] MEDS: Digoxin 125 MCG Tablet PO (11:14)
[2021-09-22] MEDS: Digoxin 250 MCG/ML Ampul 500 MCG IV (11:15)
[2021-09-22 14:12] LABS: Pathologist Review Reviewed
[2021-09-22 14:22] LABS: Pathologist Review Reviewed
[2021-09-22 14:33] LABS: Pathologist Review Reviewed
--- NOTE | 2021-09-22 18:00 | PN.HOSP_ITS ---
Subjective Subjective Patient was seen and examined today, his heart rate is not under good control at this time, I added digoxin today due to his relatively low blood pressure. Patient continues to receive metoprolol in addition for rate control. Patient's white blood cell count today was 12.9. Objective Data Objective Data Vital Signs: Vital Signs Temp Pulse Resp BP Pulse Ox 98.3 F 70 18 121/70 H 97 09/22/21 16:00 09/22/21 16:00 09/22/21 16:00 09/22/21 16:00 09/22/21 16:00 Oxygen Delivery Method Room Air Weight: 74.8 kg Body Mass Index (BMI) 22.4 Intake & Output: Intake and Output for Last 24 Hours 09/20/21 09/21/21 09/22/21 23:59 23:59 23:59 Intake Total 1741.66 / 1741.66 1710 / 1710 1220 / 1220 Output Total 720 / 1170 1700 / 1700 1050 / 1050 Balance 1021.66 / 571.66 170 / 170 Lab / Micro Data Result Diagrams: 09/22/21 05:12 09/20/21 02:30 Labs: Laboratory Results - last 24 hr 09/20/21 02:30: Diff Path Review Reviewed 09/21/21 05:40: Diff Path Review Reviewed 09/22/21 05:12: PT 25.9 H, INR 2.5 09/22/21 05:12: WBC 12.9 H, RBC 4.11 L, Hgb 12.8 L, Hct 38.4 L, MCV 93.4, MCH 31.1, MCHC 33.3, RDW Std Deviation 45.0 H, RDW Coeff of Maria Guadalupe 13.1, Plt Count 220, MPV 9.5, Immature Gran % (Auto) 0.500, Neut % (Auto) 73.2 H, Lymph % (Auto) 11.9 L, [place] % (Auto) 12.3 H, Eos % (Auto) 1.9, Baso % (Auto) 0.2, Absolute Neuts (auto) 9.4 H, Absolute Lymphs (auto) 1.53, Nucleated RBC % 0, Differential Comment SCANNED, Diff Path Review Reviewed Micro: Microbiology 09/19/21 22:12 Blood Culture (Wb) - Anticubital Right Blood Culture - Preliminary No growth in 48 hours. 09/19/21 22:12 Blood Culture (Wb) - Anticubital Left Blood Culture - Preliminary No growth in 48 hours. 09/20/21 14:55 Urine, Clean Catch Legionella Antigen - Final 09/20/21 14:55 Urine, Clean Catch Streptococcus pneumoniae Antigen (M - Final 09/19/21 23:40 Nasal Secretion SARS-CoV-2 Antigen (Rapid) - Final Physical Exam Narrative alert, oriented x3, no apparent distress and healthy appearing General Appearance: cooperative, well kempt and well developed Orientation / Consciousness: awake, oriented to person, oriented to place and oriented to time HEENT normocephalic and moist oral mucous membranes Eyes PERRL, EOMs intact bilaterally and conjunctivae normal Neck nuchal rigidity, supple, no JVD, thyroid normal and no carotid bruits General: trachea midline Resp normal respiratory effort and clear to auscultation bilaterally Auscultation: Negative for rales, rhonchi or wheezes Cardio no murmurs, no rub and no gallops Cardio Narrative: Heart rate and rhythm is irregular GI normal to inspection, nondistended, normoactive bowel sounds, soft to palpation, non-tender and non-distended Extremity no clubbing, cyanosis or edema Skin no rashes or lesions noted General Skin Exam: no breakdown Neuro oriented x3, CN's II-XII intact bilaterally, no focal motor deficits and no sensory deficits noted Sensorium / Orientation: awake and alert Speech: speech normal Psych affect normal Assessment & Plan Assessment/Plan (1) Left lower lobe pneumonia: (2) Atrial fibrillation with RVR: PLAN: 1. Community-acquired pneumonia-organism unknown at this time, continue present antibiotic treatment #2 chronic atrial fibrillation with rapid ventricular response-patient will remain on a beta-jamin at this time for rate control and Lanoxin. #3 chronic obstructive pulmonary disease-continue present treatment including aerosol treatments #4 essential hypertension-patient will remain on his present medications #5 chronic atrial fibrillation-patient currently is on warfarin, he will continue on rate limiting medication at this time, patient's INR today was 2.5 #6 chronic anticoagulation with Coumadin-patient's INR today was 2.5, monitor I NR as needed Charges/Coding Visit Charges Inpatient E&M: 10521 Subs Hosp L2
[2021-09-22] MEDS: MELATONIN 3 MG TABLET PO (21:06)
[2021-09-22] MEDS: Tamsulosin HCl 0.4 MG Capsule PO (21:06)
[2021-09-22] MEDS: Ceftriaxone 1 GM/50 ML BAG IV (21:07)
[2021-09-23] VITALS (10 sets, daily range): BP systolic 97–110; BP diastolic 64–69; PULSE 81–113; RESP 16–20; TEMP 36.5–37.2; O2SAT 96–97
[2021-09-23 06:32] LABS: Prothrombin Time (Protime)PT. 30.1 SECONDS (11.7-14.9)
[2021-09-23] MEDS: Budesonide Respules 0.5 MG/2 ML AMPUL.NEB. INHALATION (07:09)
[2021-09-23] MEDS: Albuterol 2.5 MG/3 ML VIAL.NEB. INHALATION ×2 (07:09→13:23)
[2021-09-23] MEDS: Doxycycline 100 MG CAPSULE PO (09:25)
[2021-09-23] MEDS: Digoxin 125 MCG Tablet PO (09:25)
[2021-09-23] MEDS: Metoprolol Tartrate 50 MG Tablet PO (09:27)
--- NOTE | 2021-09-23 14:06 | PCM.DC ---
Discharge Instructions Diet Discharge Diet: No restrictions Activity Discharge Activity: Return to Normal Activity Weight Bearing Status: Full weight bearing Follow Up Care Test Results: Test results from this visit will be discussed in further detail at your follow-up appointment, if applicable. Discharge Plan Admission Admit Date/Time: 09/19/21 22:02 Primary Reason for Your Visit: left sided pneumonia, a-fib with rapid heart rate Attending Provider: Danny Millan Primary Care Provider: Danny Helton Discharge Orders/Prescriptions Prescriptions: New doxycycline monohydrate 100 mg Capsule 100 mg PO BID Qty: 10 RF: 0 metoprolol tartrate 50 mg Tablet 50 mg PO BID Qty: 60 RF: 0 digoxin 125 mcg (0.125 mg) Tablet 125 mcg PO DAILY Qty: 30 RF: 0 Continued budesonide-formoterol 160-4.5 mcg/actuation HFA aerosol inhaler 2 inh inhalation BID RF: 0 warfarin 4 MG tablet 4 mg PO SUMOWETHFRSA RF: 0 warfarin 6 MG tablet 6 mg PO TU RF: 0 tamsulosin 0.4 MG capsule,extended release 24hr 0.4 mg PO QHS RF: 0 [id number]-[id number]-epa-fish oil-D3 1 EACH capsule 2 ea PO DAILY RF: 0 fluticasone propionate 1 SPRAY spray,suspension 1 spray NASAL DAILY PRN (Reason: allergic rhinitis) RF: 0 sodium chloride 44 ML aerosol,spray 1 spray NASAL DAILY PRN (Reason: Allergies) RF: 0 famotidine-Ca carb-mag hydrox 1 EACH tablet,chewable 1 tab PO 4X/DAY PRN PRN (Reason: Heartburn) RF: 0 Discontinued metoprolol tartrate 25 mg tablet 25 mg PO BID Qty: 180 RF: 3 Referrals / Follow Up: Danny Helton MD [Primary Care Provider] - Within 2 Weeks Disposition Disposition (needs filled in before D/C Order can be placed): Assisted Living
--- NOTE | 2021-09-23 14:44 | CASEMGMT ---
Patient is ready for discharge back to [facility] today. [place] arranged for [facility] van to take patient back at 330. SW notified patient. SW called [facility] and notified them of patient coming back and the time. VIVEK also faxed [facility] to [facility]. Plan: d/c back to [facility]. [facility] Van transported patient. Neeru COBOS
--- NOTE | 2021-09-23 16:29 | DS.PCM_ITS ---
Providers Date of Admission: 09/19/21 Date of Discharge: 09/23/21 Primary Care Physician: Dr. Danny Helton MD Reason For Visit: LEFT LOWER PNEUMONIA; AFIB WITH RVR Diagnosis Discharge Diagnosis (1) Left lower lobe pneumonia: Status: Acute Code(s): J18.9 - Pneumonia, unspecified organism (2) Atrial fibrillation with RVR: Status: Acute Code(s): I48.91 - Unspecified atrial fibrillation Plan: 1. Community-acquired pneumonia-organism unknown at this time #2 chronic atrial fibrillation with rapid ventricular response #3 chronic obstructive pulmonary disease #4 essential hypertension #5 chronic atrial fibrillation #6 chronic anticoagulation with Coumadin #7 mild pulmonary hypertension Medications at Discharge Home Medications [id number] oil-D3 2 ea PO DAILY 03/12/15 tamsulosin 0.4 mg PO QHS 03/12/15 warfarin 4 mg PO SUMOWETHFRSA 03/12/15 warfarin 6 mg PO TU 03/12/15 fluticasone propionate 1 spray NASAL DAILY PRN 03/17/19 famotidine-Ca carb-mag hydrox 1 tab PO 4X/DAY PRN PRN 05/05/19 sodium chloride 1 spray NASAL DAILY PRN 05/05/19 budesonide-formoterol HFA 160 mcg-4.5 mcg/actuation aerosol inhaler 2 inh INHALATION BID g 04/14/21 digoxin 125 mcg PO DAILY #30 tab 09/23/21 doxycycline monohydrate 100 mg PO BID #10 cap 09/23/21 metoprolol tartrate 50 mg PO BID #60 tab 09/23/21 Hospital Course Operations None Procedures 2-D Echocardiogram Summary of Care Provided Minutes Spent on Discharge: 32 Hospital Course: 76-year-old white male who is a resident of assisted living presented to the emergency room at [facility] with complaints of palpitation, he also complained of sneezing and a productive cough of clear s putum. In the emergency room, patient was found to be in A. fib with RVR and given IV metoprolol, chest x-ray showed a left lower lobe increased attenuation suspected to represent pneumonia. There is also mild emphysematous changes noted. Patient was admitted to PCU for left lower lobe pneumonia and atrial fibrillation with RVR, initially patient was placed on IV amiodarone, this subsequently was stopped and the patient's rate limiting medications were adjusted. Patient improved during his hospital stay. On 09/23/2021, patient was seen and examined: On examination he appeared in good health and spirits. Vital signs as documented. Skin warm and dry and without overt rashes. Neck without JVD, neck was supple, trachea midline, thyroid was normal. Lungs clear bilaterally, normal air movement was noted. Heart exam notable for irregular rhythm, normal sounds and absence of murmurs, rubs or gallops. Abdomen unremarkable and without evidence of organomegaly, masses, or abdominal aortic enlargement. Bowel sounds are present, abdomen is not distended. Extremities nonedematous, no cyanosis was noted, no clubbing was noted. Neuro: Cranial nerves II through XII are grossly intact, no focal motor deficits were noted, sensation to light touch and pinprick intact, motor exam 5/5 throughout. Psych: Patient is alert and oriented x3, he does not appear anxious or depressed, he does not appear agitated. On 09/23/2021, patient was seen and examined and felt to be stable for return to assisted living. Weight / BMI Weight Weight: 74.8 kg Body Mass Index (BMI) 22.4 ABG / Lab / Microbiology Data Result Diagrams: 09/22/21 05:12 09/20/21 02:30 Laboratory: Laboratory Results - last 24 hr 09/23/21 06:00: PT 30.1 H, INR 3.0 Microbiology: Microbiology 09/19/21 22:12 Blood Culture (Wb) - Anticubital Right Blood Culture - Preliminary No growth in 48 hours. 09/19/21 22:12 Blood Culture (Wb) - Anticubital Left Blood Culture - Preliminary No growth in 48 hours. 09/20/21 14:55 Urine, Clean Catch Legionella Antigen - Final 09/20/21 14:55 Urine, Clean Catch Streptococcus pneumoniae Antigen (M - Final 09/19/21 23:40 Nasal Secretion SARS-CoV-2 Antigen (Rapid) - Final D/C Instructions Discharge Diet: No restrictions Weight Bearing Status: Full weight bearing Meaningful Use Info Meaningful Use Diagnoses (Choose all that apply): None applicable Discharge Plan Admission Admit Date/Time: 09/19/21 22:02 Primary Reason for Your Visit: left sided pneumonia, a-fib with rapid heart rate Attending Provider: Danny Millan Primary Care Provider: Danny Helton Discharge Orders/Prescriptions Prescriptions: New doxycycline monohydrate 100 mg Capsule 100 mg PO BID Qty: 10 RF: 0 metoprolol tartrate 50 mg Tablet 50 mg PO BID Qty: 60 RF: 0 digoxin 125 mcg (0.125 mg) Tablet 125 mcg PO DAILY Qty: 30 RF: 0 Continued budesonide-formoterol 160-4.5 mcg/actuation HFA aerosol inhaler 2 inh inhalation BID RF: 0 warfarin 4 MG tablet 4 mg PO SUMOWETHFRSA RF: 0 warfarin 6 MG tablet 6 mg PO TU RF: 0 tamsulosin 0.4 MG capsule,extended release 24hr 0.4 mg PO QHS RF: 0 nsqou-6e-xow-epa-fish oil-D3 1 EACH capsule 2 ea PO DAILY RF: 0 fluticasone propionate 1 SPRAY spray,suspension 1 spray NASAL DAILY PRN (Reason: allergic rhinitis) RF: 0 sodium chloride 44 ML aerosol,spray 1 spray NASAL DAILY PRN (Reason: Allergies) RF: 0 famotidine-Ca carb-mag hydrox 1 EACH tablet,chewable 1 tab PO 4X/DAY PRN PRN (Reason: Heartburn) RF: 0 Discontinued metoprolol tartrate 25 mg tablet 25 mg PO BID Qty: 180 RF: 3 Referrals / Follow Up: Danny Helton MD [Primary Care Provider] - 09/30/21 10:00 am Disposition Disposition (needs filled in before D/C Order can be placed): Assisted Living Charges/Coding Visit Charges Inpatient E&M: 21380 Disch Hosp
== END 2021-09-23 15:00 | disposition home or self-care (01) | DRG 194 ==
LOC: ED 22:10 → PCU 09-20 07:36
PROVIDERS: Admitting Provider Hospitalist; Emergency Provider Emergency Medicine; PCP Family Medicine; Visit Provider Internal Medicine
DX: J18.9 Pneumonia, unspecified organism (principal); I42.9 Cardiomyopathy, unspecified; I48.20 Chronic atrial fibrillation, unspecified; J44.0 Chronic obstructive pulmonary disease with (acute) lower respiratory infection; I27.29 Other secondary pulmonary hypertension; F17.210 Nicotine dependence, cigarettes, uncomplicated; E78.5 Hyperlipidemia, unspecified; I10 Essential (primary) hypertension; N40.0 Benign prostatic hyperplasia without lower urinary tract symptoms; Z20.822 Contact with and (suspected) exposure to COVID-19; Z79.01 Long term (current) use of anticoagulants; Z79.899 Other long term (current) drug therapy; Z86.718 Personal history of other venous thrombosis and embolism; Z86.711 Personal history of pulmonary embolism
CPT/HCPCS: 36415; 71045; 71250; 80048; 83605; 83735; 83880; 84443; 84484; 85025; 85610; 87040; 87426; 87449; 93005; 93306; 94640; 94762; 97161; 97802; 99251; 99285; J7050; A4216; G0463; J0696

== ENCOUNTER 2021-12-20 13:43 | Emergency (ER) | payer MEDICARE, MEDICAID, SELFPAY ==
[2021-12-20] VITALS (7 sets, daily range): BP systolic 100–115; BP diastolic 71–77; PULSE 73–89; RESP 14–17; TEMP 36.4; O2SAT 95–97; BMI 25.0
--- NOTE | 2021-12-20 14:24 | RAD_ITS ---
STUDY: X-RAY CHEST REASON FOR EXAM: Male, 76 years old. Worsening shortness of breath TECHNIQUE: Single AP portable view of the chest. COMPARISON: 09/19/2021 FINDINGS: EKG leads overlie the chest Lungs are mildly hyperexpanded with chronic interstitial changes but no superimposed acute pulmonary process. Normal size heart. Normal mediastinum and [place]. Normal visualized pulmonary arteries. There is atherosclerotic calcification of the aortic arch with tortuosity. There are diffuse degenerative changes of the visualized thoracic spine. Normal visualized ribs, clavicles, and shoulders. There is no demonstrated abnormality of the visualized soft tissue structures of the upper abdomen. RAD/Chest 1 View (Portable) IMPRESSION: Mildly hyperexpanded lungs with chronic interstitial changes, no superimposed acute pulmonary process Electronically Signed: Gary Otto MD at 14:54 EDT ,
--- NOTE | 2021-12-20 14:26 | EDS_ITS ---
HPI History of Present Illness Chief Complaint: Dizziness Informant: patient and SNF Onset/Context/Timing Onset: Today (started about 6 hrs ago) Context: Gradual Onset Timing: Intermittent and Waxes and wanes Quality: palpitations, lightheadedness/faint Current Severity: Gone Maximum Severity: Moderate Worsened by: standing up & walking Relieved by: sitting/resting Associated Symptoms Associated Symptoms: flutter in chest, left neck discomfort, sob Narrative Narrative: Patient states he was having frequent episodes of fluttering in his chest, shortness of breath, and feeling faint, he was never near syncopal or syncopal. Discomfort and hit the left side of his neck which was atraumatic and not worse with moving his head had been there all morning despite the waxing and waning other symptoms above, he states he is at a facility and they checked his blood pressure and it was low although I do not have details on that, he states subsequently he drank about 10 glasses of water and upon evaluation here he states the symptoms are all gone including the neck discomfort and he feels better. He has been in rapid A. fib in the past, he states that feels like a rapid irregular pounding and that is much more prominent/significant compared with what he had today which was much more mild. He denies any recent illness. Denies cough, fevers, nausea vomiting, diaphoresis, arm discomfort associated with these episodes today. [facility] Medical History Anxiety Ataxia Atrial fibrillation with RVR BPH (benign prostatic hyperplasia) Cardiomyopathy Cervical arthritis DVT (deep venous thrombosis) Essential (primary) hypertension Hyperlipidemia Left lower lobe pneumonia Longstanding persistent atrial fibrillation Other secondary pulmonary hypertension Pulmonary emboli Home Medications [id number]-epa-fish oil-D3 2 ea PO DAILY 03/12/15 [History Last Taken 03/15/19 07:00] tamsulosin 0.4 mg PO QHS 03/12/15 [History Last Taken 03/17/19 19:00] warfarin 4 mg PO SUMOWETHFRSA 03/12/15 [History Last Taken 03/17/19 17:00] warfarin 6 mg PO TU 03/12/15 [History Last Taken 03/11/19 17:00] fluticasone propionate 1 spray NASAL DAILY PRN 03/17/19 [History Last Taken Unknown] famotidine-Ca carb-mag hydrox 1 tab PO 4X/DAY PRN PRN 05/05/19 [History Last Taken Unknown] sodium chloride 1 spray NASAL DAILY PRN 05/05/19 [History Last Taken Unknown] budesonide-formoterol HFA 160 mcg-4.5 mcg/actuation aerosol inhaler 2 inh INHALATION BID g 04/14/21 [History Last Taken Unknown] digoxin 125 mcg (0.125 mg) tablet 125 mcg PO DAILY #30 tab 10/12/21 [Rx Last Taken Unknown] metoprolol tartrate 50 mg tablet 50 mg PO BID #60 tab 10/12/21 [Rx Last Taken Unknown] multivitamin 1 tab PO DAILY 10/12/21 [History Last Taken Unknown] Allergy/AdvReac Type Severity Reaction Status Date / Time lisinopril Allergy pain in Verified 04/14/21 10:00 legs, cant walk niacin Allergy Rash Verified 04/14/21 10:00 acetaminophen [From Tylenol] AdvReac Severe Chest pain Verified 04/14/21 10:00 guaifenesin [From Mucinex] AdvReac Severe Chest pain Verified 04/14/21 10:00 nut - unspecified AdvReac Other Verified 04/14/21 10:00 popcorn Allergy Unknown Rash Uncoded 04/14/21 10:00 Family History (Reviewed 10/12/21 @ 11:08 by Sony Mcaias [employer], [employer]-C) Other Hypertension Surgical History H/O tooth extraction Social History Smoking Status: Current every day smoker tobacco type: cigarettes Tobacco: How many years used: 53 ROS ROS ED Constitutional Constitutional ED: Denies chills or fever(s) Eyes Eyes: Denies change in vision or diplopia ENT ENT ED: Denies rhinorrhea or sore throat Cardiovascular Cardiovascular: Reports as per HPI, lightheadedness and palpitations; Denies chest pain, orthopnea or pedal edema Respiratory/Chest Respiratory/Chest: Reports other Details: Dyspnea, resolved now, see HPI ; Denies cough or orthopnea Gastrointestinal Gastrointestinal: Denies abdominal pain, diarrhea, nausea or vomiting Genitourinary Genitourinary ED: Denies dysuria or hematuria Musculoskeletal Musculoskeletal: Denies back pain or neck pain Integumentary Denies abscess or rash Neurologic Neurologic: Denies headache(s), paresthesias or weakness Psychiatric Psychiatric: Denies anxiety or suicidal thoughts EXAM Physical Exam Const Vital Signs: 12/20/21 13:45 12/20/21 13:50 12/20/21 14:33 Temperature 97.5 F L Temperature Source Temporal Pulse Rate 89 Respiratory Rate 17 Respiratory Effort Normal Respiratory Pattern Normal Blood Pressure 115/77 Blood Pressure Mean 89 Pulse Ox 97 97 Oxygen Delivery Method Room Air Room Air 12/20/21 15:00 12/20/21 16:00 12/20/21 17:11 Temperature Temperature Source Pulse Rate 86 73 Respiratory Rate 17 14 Respiratory Effort Respiratory Pattern Blood Pressure 100/77 103/74 108/75 Blood Pressure Mean 84 83 86 Pulse Ox 95 96 Oxygen Delivery Method Room Air Room Air Positive well nourished and well developed General Appearance ED: well developed and NAD HEENT Reports moist mucous membranes normocephalic and atraumatic Eyes PERRL and EOMs intact bilaterally Neck full ROM, no lymphadenopathy and supple Neck Narrative: Nontender. No carotid bruits bilaterally. Resp normal respiratory effort and clear to auscultation bilaterally Cardio no murmurs Rate: Negative for bradycardia or tachycardic Rhythm: abnormal rhythm irregularly irregular Peripheral Pulses: pulses 2+ throughout GI non-tender and non-distended Auscultation: normoactive bowel sounds Palpation: soft Back/Spine no CVA tenderness General Back: other FROM Extremity normal to inspection, no calf tenderness and no pedal edema General Extremety ED: Negative for edema, pulses abnormal or tenderness General Extremity: Negative for edema or pulses abnormal Neuro oriented x3, CN's II-XII intact bilaterally and no sensory deficits noted Sensorium / Orientation: awake and alert Motor Exam: strength 5/5 throughout Skin no rashes or lesions noted and no wounds MDM MDM MDM Narrative Medical decision making narrative: Patient had no chest discomfort with any of this today. He does appear to have a history of cardiomyopathy, looking at his recent echo in August, he had mild concentric LVH, normal LV size, normal LV systolic function, and an EF of 55%. His lungs are clear, he has no peripheral edema or JVD and does not appear to be in acute failure. He was given a bolus of 250 cc of fluid, upon arrival here his blood pressure is 115/77 and on reevaluation blood pressure is similar. Initial troponin is negative at 7, his INR is therapeutic and his symptoms really are less compatible with pulmonary embolism so I do not think he needs further work-up for that. I do not think that this is a carotid dissection, he has no bruit there and the pain is gone, I think this was all more related to the palpitations he was having. He is in chronic A. fib but does not have RVR. His delta troponin is 10, with his second troponin coming back at 17, and he is feeling well. I discussed this with Dr. Robertson, who states based on this troponin slight elevation alone, admission/observation not mandatory. We ambulated him and he did well without any hypoxemia or lightheadedness/feeling faint, so I think discharging him back with close outpatient follow-up is safe. Patient in agreement and wants to go home. Lab Data Attestation: I reviewed the patient's lab results. Labs: Laboratory Results - last 24 hr 12/20/21 12/20/21 12/20/21 14:25 14:25 14:25 WBC 10.6 RBC 5.09 Hgb 16.0 Hct 48.9 MCV 96.1 H MCH 31.4 MCHC 32.7 RDW Std Deviation 47.7 H RDW Coeff of Maria Guadalupe 13.2 Plt Count 314 MPV 9.9 Immature Gran % (Auto) 0.500 Neut % (Auto) 65.6 Lymph % (Auto) 25.4 [place] % (Auto) 6.6 Eos % (Auto) 1.5 Baso % (Auto) 0.4 Absolute Neuts (auto) 7.0 Absolute Lymphs (auto) 2.69 Nucleated RBC % 0 PT 25.3 H INR 2.3 Sodium 137 Potassium 4.2 Chloride 105 Carbon Dioxide 23.0 Anion Gap 9 BUN 21 H Creatinine 1.25 Estim Creat Clear Calc 54.32 Est GFR (MDRD) Af Amer 72 Est GFR (MDRD) Non-Af 59 L BUN/Creatinine Ratio 16.8 Glucose 119 H Calcium 9.5 Troponin I High Sens 7 12/20/21 16:40 WBC RBC Hgb Hct MCV MCH MCHC RDW Std Deviation RDW Coeff of Maria Guadalupe Plt Count MPV Immature Gran % (Auto) Neut % (Auto) Lymph % (Auto) [place] % (Auto) Eos % (Auto) Baso % (Auto) Absolute Neuts (auto) Absolute Lymphs (auto) Nucleated RBC % PT INR Sodium Potassium Chloride Carbon Dioxide Anion Gap BUN Creatinine Estim Creat Clear Calc Est GFR (MDRD) Af Amer Est GFR (MDRD) Non-Af BUN/Creatinine Ratio Glucose Calcium Troponin I High Sens 17 Radiography Chest X-Ray - ED: 1 View, Read by ED Physician, No Acute Disease, Chronic Changes and No Infiltrates Diagnostic Testing: Clinical Impression(s) from Imaging Studies Chest X-Ray 12/20/21 14:24 IMPRESSION: Mildly hyperexpanded lungs with chronic interstitial changes, no superimposed acute pulmonary process Electronically Signed: Gary Otto MD at 14:54 EDT Reading Location ID and State: [facility] / [place] , Service support , Rhythm Strip Rhythm Strip: A-fib Rate: 80 Ectopy: None EKG Initial EKG: Attestation: I personally reviewed and interpreted this EKG as follows: Interpretation: No Acute Injury Pattern and Atrial Fibrillation Prior EKG tracings: available for review Prior: Unchanged Discharge Plan Triage Chief Complaint: Dizziness ED Provider: Jose Gonzalez Dx/Rx/DC Orders Clinical Impression: Palpitations, Lightheadedness, Longstanding persistent atrial fibrillation, Warfarin-induced coagulopathy Instructions: ED AFIB, ED Palpitations Prescriptions: No Action budesonide-formoterol 160-4.5 mcg/actuation HFA aerosol inhaler 2 inh inhalation BID RF: 0 multivitamin Tablet 1 tab PO DAILY RF: 0 digoxin 125 mcg (0.125 mg) tablet 125 mcg PO DAILY Qty: 30 RF: 11 metoprolol tartrate 50 mg tablet 50 mg PO BID Qty: 60 RF: 11 warfarin 4 MG tablet 4 mg PO SUMOWETH RF: 0 warfarin 6 MG tablet 6 mg PO TU RF: 0 tamsulosin 0.4 MG capsule,extended release 24hr 0.4 mg PO QHS RF: 0 ituho-4j-smn-epa-fish oil-D3 1 EACH capsule 2 ea PO DAILY RF: 0 fluticasone propionate 1 SPRAY spray,suspension 1 spray NASAL DAILY PRN (Reason: allergic rhinitis) RF: 0 sodium chloride 44 ML aerosol,spray 1 spray NASAL DAILY PRN (Reason: Allergies) RF: 0 famotidine-Ca carb-mag hydrox 1 EACH tablet,chewable 1 tab PO 4X/DAY PRN PRN (Reason: Heartburn) RF: 0 Primary Care Provider: Danny Helton Referrals: Danny Helton MD [Primary Care Provider] - 3-5 Days (And/your your vp of customer experience strategy) Disposition Disposition: Home, Self Care
--- NOTE | 2021-12-20 14:30 | EKG12_ITS ---
Test Reason : Blood Pressure : / mmHG Vent. Rate : 078 BPM Atrial Rate : 416 BPM P-R Int : 000 ms QRS Dur : 074 ms QT Int : 360 ms P-R-T Axes : 000 024 025 degrees QTc Int : 410 ms Atrial fibrillation Abnormal ECG Confirmed by KISHAN MISTRY, LAURA ([id number]), photograph editor PETRONA OLSON ([id number]) on 12/21/2021 1:29:29 PM Referred By: KEYONA Confirmed By:LAURA HOLLEY MD
[2021-12-20 14:33] LABS: Absolute Lymphocyte Count 2.69 X10^3/uL (0.83-4.51); Basophil# 0.04 X10^3/uL; Basophil% 0.4 % (0-1); Eosinophil# 0.16 X10^3/uL; Eosinophils% 1.5 % (0-5); Hematocrit 48.9 % (40-54); Lymphocyte # 2.69 X10^3/ul (0.83-4.51); Lymphocyte % 25.4 % (19-41); Mean Corp Hgb Conc 32.7 g/dL (32-36); Mean Corpuscular Hgb 31.4 pg (27.0-32.0); Mean Corpuscular Volume 96.1 fL (80-94); Mean Platelet Vol. 9.9 fl (6.2-12.0); Monocyte% 6.6 % (0-10); NRBC Flagged by Analyzer 0 % (0-5); Neutrophil # 6.95 X10^3/uL (2.7-7.7); Neutrophil % 65.6 % (47-70); Platelet Count 314 K/mm3 (150-450); RBC Distribution Width CV 13.2 % (11.6-14.6); RBC Distribution Width SD 47.7 fl (35.1-43.9); Red Blood Count 5.09 M/mm3 (4.6-6.2); White Blood Count 10.6 K/mm3 (4.4-11.0)
[2021-12-20 14:41] LABS: International Normalized Ratio 2.3; Prothrombin Time (Protime)PT. 25.3 SECONDS (11.7-14.9)
[2021-12-20 14:52] LABS: Anion Gap 9 (5-15); BUN 21 mg/dL (7-18); BUN/Creat Ratio 16.8 RATIO (10-20); Calcium,Total 9.5 mg/dL (8.5-10.1); Chloride 105 mmol/L (98-107); Creatinine, Serum 1.25 mg/dL (0.70-1.30); EST Glomerular Filtration Rate 59 mL/min (>60); Est Glom Filt Rate - Afr Amer 72 mL/min (>60); Estimated Creatinine Clearance 54.32 ml/min; Glucose 119 mg/dL (74-106); Potassium 4.2 mmol/L (3.5-5.1); Sodium Level 137 mmol/L (136-145); Troponin-I HS (w/2H Reflex) 7 pg/mL (3.0-78.0)
[2021-12-20 16:30] LABS: Reflex Troponin-HS? (from REC) Y
[2021-12-20 17:08] LABS: Troponin-I HS 17 pg/mL (3.0-78.0)
== END 2021-12-20 18:52 | disposition home or self-care (01) ==
PROVIDERS: Emergency Provider Emergency Medicine; PCP Family Medicine; Visit Provider Emergency Medicine
DX: I48.11 Longstanding persistent atrial fibrillation (principal); I42.9 Cardiomyopathy, unspecified; I27.29 Other secondary pulmonary hypertension; D68.9 Coagulation defect, unspecified; N40.0 Benign prostatic hyperplasia without lower urinary tract symptoms; F41.9 Anxiety disorder, unspecified; Z86.718 Personal history of other venous thrombosis and embolism; I10 Essential (primary) hypertension; E78.5 Hyperlipidemia, unspecified; Z86.711 Personal history of pulmonary embolism; Z87.01 Personal history of pneumonia (recurrent); Z79.899 Other long term (current) drug therapy; Z79.01 Long term (current) use of anticoagulants; F17.210 Nicotine dependence, cigarettes, uncomplicated
CPT/HCPCS: 71045; 80048; 84484; 85025; 85610; 93005; 99285

== ENCOUNTER → 2021-12-29 | Outpatient (CLI) | payer MEDICARE, MEDICAID, SELFPAY ==
[2021-12-29 18:06] LABS: Anion Gap 6 (5-15); BUN 24 mg/dL (7-18); BUN/Creat Ratio 21.1 RATIO (10-20); Calcium,Total 9.7 mg/dL (8.5-10.1); Chloride 105 mmol/L (98-107); Creatinine, Serum 1.14 mg/dL (0.70-1.30); EST Glomerular Filtration Rate 66 mL/min (>60); Est Glom Filt Rate - Afr Amer 80 mL/min (>60); Glucose 93 mg/dL (74-106); Potassium 4.3 mmol/L (3.5-5.1); Sodium Level 139 mmol/L (136-145)
[2021-12-29 18:22] LABS: Digoxin Level 0.82 ng/mL (0.80-2.00)
== END | disposition home or self-care (01) ==
LOC: LAB 15:51
PROVIDERS: PCP Family Medicine; Referring Provider Nurse Practitioner Gerontology; Visit Provider Nurse Practitioner Gerontology
DX: I48.11 Longstanding persistent atrial fibrillation (principal)
CPT/HCPCS: 36415; 80048; 80162

== ENCOUNTER → 2022-01-20 | Outpatient (CLI) | payer MEDICARE, MEDICAID, SELFPAY | END | disposition home or self-care (01) | LOC: PSN 09:38 | PROVIDERS: PCP Family Medicine; Visit Provider Nurse Practitioner Gerontology | DX: I48.11 Longstanding persistent atrial fibrillation (principal) | CPT/HCPCS: 93225; 93226 ==

== ENCOUNTER → 2022-05-02 | Outpatient (CLI) | payer MEDICARE, MEDICAID, SELFPAY ==
[2022-05-02 14:08] LABS: International Normalized Ratio 1.1; Prothrombin Time (Protime)PT. 14.3 SECONDS (11.7-14.9)
== END | disposition home or self-care (01) ==
LOC: LABSPEC 13:52
PROVIDERS: PCP Family Medicine; Visit Provider Family Medicine
DX: I48.20 Chronic atrial fibrillation, unspecified (principal); Z79.01 Long term (current) use of anticoagulants; Z51.81 Encounter for therapeutic drug level monitoring
CPT/HCPCS: 85610

== ENCOUNTER 2022-09-15 15:58 | Emergency (ER) | payer MEDICARE, MEDICAID, SELFPAY ==
[2022-09-15 15:59] VITALS: BP 159/92; PULSE 88; RESP 20; TEMP 36.7; O2SAT 100; BMI 25.2
--- NOTE | 2022-09-15 16:12 | EKG12_ITS ---
Test Reason : CP Blood Pressure : / mmHG Vent. Rate : 066 BPM Atrial Rate : 094 BPM P-R Int : 000 ms QRS Dur : 072 ms QT Int : 358 ms P-R-T Axes : 000 043 046 degrees QTc Int : 375 ms Atrial fibrillation Abnormal ECG Confirmed by KISHAN MISTRY, LAURA ([id number]), deputy editor in chief FLORENCE NEGRETE ([id number]) on 09/19/2022 11:22:34 AM Referred By: Confirmed By:LAURA HOLLEY MD
--- NOTE | 2022-09-15 16:13 | EDS_ITS ---
HPI History of Present Illness Chief Complaint: Chest Pain Narrative Narrative: 77-year-old male past medical history of hypertension, hyperlipidemia, smoker, atrial fibrillation on Coumadin, presents with 2 days of constant left-sided chest pain. He describes it more of an ache or pressure. He denies stenting of his heart or coronary artery disease. He states that the longer that this aching goes on he can feel heart palpitations. He denies any exacerbating or alleviating factors to his chest aching. No nausea or vomiting. No diaphoresis or shortness of breath. No leg swelling. He called EMS today because his pain is unrelenting. [facility] Medical History Anxiety Ataxia Atrial fibrillation with RVR BPH (benign prostatic hyperplasia) Cardiomyopathy Cervical arthritis DVT (deep venous thrombosis) Essential (primary) hypertension Hyperlipidemia Left lower lobe pneumonia Longstanding persistent atrial fibrillation Other secondary pulmonary hypertension Pulmonary emboli Retinal detachment Home Medications omega-3s 360 cz-ake-lqm-fish oil 1,200 mg-D3 1,000 unit capsule 2 ea PO DAILY health maintenance 03/12/15 [History Last Taken 03/15/19 07:00] tamsulosin 0.4 mg capsule 0.4 mg PO QHS prostate 03/12/15 [History Last Taken 03/17/19 19:00] warfarin 4 mg tablet 4 mg PO SUMOWETHFRSA a fib 03/12/15 [History Last Taken 03/17/19 17:00] warfarin 6 mg tablet 6 mg PO TU blood thinner 03/12/15 [History Last Taken 03/11/19 17:00] fluticasone propionate 50 mcg/actuation nasal spray,suspension 1 spray NASAL DAILY PRN allergic rhinitis 03/17/19 [History Last Taken Unknown] famotidine-Ca carb-mag hydrox 10 mg-800 mg-165 mg chewable tablet 1 tab PO 4X/DAY PRN PRN Heartburn 05/05/19 [History Last Taken Unknown] sodium chloride 0.65 % nasal spray aerosol 1 spray NASAL DAILY PRN Allergies 05/05/19 [History Last Taken Unknown] budesonide-formoterol HFA 160 mcg-4.5 mcg/actuation aerosol inhaler 2 inh inhalation BID 04/14/21 [History Last Taken Unknown] digoxin 125 mcg (0.125 mg) tablet 125 mcg PO DAILY #30 tabs 10/12/21 [Rx Last Taken Unknown] metoprolol tartrate 50 mg tablet 50 mg PO BID #60 tabs 10/12/21 [Rx Last Taken Unknown] multivitamin 1 tab PO DAILY 10/12/21 [History Last Taken Unknown] Allergy/AdvReac Type Severity Reaction Status Date / Time lisinopril Allergy pain in Verified 09/15/22 15:59 legs, cant walk niacin Allergy Rash Verified 09/15/22 15:59 acetaminophen [From Tylenol] AdvReac Severe Chest pain Verified 09/15/22 15:59 guaifenesin [From Mucinex] AdvReac Severe Chest pain Verified 09/15/22 15:59 nut - unspecified AdvReac Other Verified 09/15/22 15:59 popcorn Allergy Unknown Rash Uncoded 09/15/22 15:59 Family History Other Hypertension Surgical History H/O tooth extraction Social History Smoking Status: Current every day smoker tobacco type: cigarettes Tobacco: How many years used: 53 ROS ROS ED ROS Narrative Constitutional: No fever, no chills. HEENT: No sore throat. No neck pain. No loss of vision. No rhinorrhea. Cardiovascular: Left-sided, achy, chest pain. Occasional palpitations. No pedal edema. Respiratory: No cough, no shortness of breath. Abdominal: No abdominal pain. No nausea. No vomiting. Genitourinary: No dysuria. No hematuria. Musculoskeletal: No myalgias. No arthralgias. Neurologic: No headaches. No dizziness. No lightheadedness. Skin: No rash. No change in color. Psychiatric: No depression. No anxiety. EXAM Physical Exam Narrative Exam Narrative: Afebrile. Vital signs noted. HEENT: Normocephalic. Atraumatic. PERRL, EOMI. Neck soft and supple. No point tenderness or step off. Cardiovascular: Regular rate and rhythm. No murmurs, rubs, or gallops appreciated. Respiratory: No tachypnea. Lungs clear to auscultation bilaterally. Gastrointestinal: Abdomen soft, nontender, with normoactive bowel sounds. No rebound or guarding. Neurological: Awake. Alert. Nonfocal, nonlateralizing. Skin: No rash. Normal color. No pallor. Musculoskeletal: No pedal edema. Full range of motion extremities. Const Vital Signs: 09/15/22 15:59 09/15/22 16:56 09/15/22 17:35 Temperature 98.1 F Temperature Source Oral Pulse Rate 88 67 Respiratory Rate 20 H 14 Blood Pressure 159/92 H 131/89 H Blood Pressure Mean 114 103 Pulse Ox 100 98 95 Oxygen Delivery Method Room Air Room Air 09/15/22 18:20 Temperature Temperature Source Pulse Rate 62 Respiratory Rate 17 Blood Pressure 137/93 H Blood Pressure Mean 107 Pulse Ox 93 Oxygen Delivery Method Heart Score History: Slightly/Non-Suspicious ECG: Normal Age: >/= 65 years Risk Factors: >/= 3 Risk Factors or History of CAD Troponin: </= Normal Limit Score: 4 MDM MDM MDM Narrative Medical decision making narrative: Chest pain work-up was pursued. Concern is for acute coronary syndrome. Under that, STEMI versus non-STEMI versus unstable angina. EKG was obtained to rule out STEMI which demonstrates atrial fibrillation that is rate controlled at [address] changes. No STEMI noted on my interpretation. I will obtain laboratory work and a chest x-ray. In review of his EMR, he reportedly had pulmonary emboli. However, he is currently on warfarin. EKG was obtained and interpreted by myself which demonstrates atrial fibrillation at [address] changes. No STEMI. No significant change from EKG dated December 20, 2021. I reviewed his laboratory work, and he has a white count of 11.7 which I think is nonspecific and at slight elevation. Hemoglobin normal at 14.6, hematocrit 45.7. Platelet count normal at 290. INR therapeutic at 2.0. Electrolyte panel was obtained and in review he has a chloride of 108 but normal sodium of 140 and normal potassium of 4.0. Glucose appropriately elevated at 98 with a normal anion gap of 7. Initial high- sensitivity troponin is 13. 2-hour repeat is also 13 for a delta troponin of 0. I do feel that he has been ruled out for acute coronary syndrome by biomarkers. Chest x-ray obtained and interpreted by myself shows no evidence of acute process, no pneumothorax or infiltrate. I reviewed the radiology report which confirms my interpretation. At this point in time, upon repeat examination he states he feels improved. 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 I feel he can be discharged safely home with follow-up. Return instructions to the emergency department were reviewed. Disposition is discharged home in stable condition. Lab Data Attestation: I reviewed the patient's lab results. Labs: Laboratory Results - last 24 hr 09/15/22 09/15/22 09/15/22 16:20 16:20 16:20 WBC 11.7 H RBC 4.71 Hgb 14.6 Hct 45.7 MCV 97.0 H MCH 31.0 MCHC 31.9 L RDW Std Deviation 46.6 H RDW Coeff of Maria Guadalupe 13.0 Plt Count 290 MPV 10.1 Immature Gran % (Auto) 0.300 Neut % (Auto) 64.2 Lymph % (Auto) 23.1 [place] % (Auto) 10.1 H Eos % (Auto) 1.8 Baso % (Auto) 0.5 Absolute Neuts (auto) 7.5 Absolute Lymphs (auto) 2.70 Nucleated RBC % 0 PT 22.2 H INR 2.0 Sodium 140 Potassium 4.0 Chloride 108 H Carbon Dioxide 25.0 Anion Gap 7 BUN 16 Creatinine 0.93 Estim Creat Clear Calc 71.85 Est GFR (MDRD) Af Amer 101 Est GFR (MDRD) Non-Af 83 BUN/Creatinine Ratio 17.1 Glucose 98 Calcium 9.7 Troponin I High Sens 13 09/15/22 18:35 WBC RBC Hgb Hct MCV MCH MCHC RDW Std Deviation RDW Coeff of Maria Guadalupe Plt Count MPV Immature Gran % (Auto) Neut % (Auto) Lymph % (Auto) [place] % (Auto) Eos % (Auto) Baso % (Auto) Absolute Neuts (auto) Absolute Lymphs (auto) Nucleated RBC % PT INR Sodium Potassium Chloride Carbon Dioxide Anion Gap BUN Creatinine Estim Creat Clear Calc Est GFR (MDRD) Af Amer Est GFR (MDRD) Non-Af BUN/Creatinine Ratio Glucose Calcium Troponin I High Sens 13 Radiography Diagnostic Testing: Clinical Impression(s) from Imaging Studies Chest X-Ray 09/15/22 16:50 IMPRESSION: No acute disease. Electronically Signed: Tamir Christopher MD at 17:11 EST Reading Location ID and State: [facility] / [place] , Service support , Discharge Plan Triage Chief Complaint: Chest Pain ED Provider: Apolinar Phan Dx/Rx/DC Orders Clinical Impression: Chest pain, Longstanding persistent atrial fibrillation, Palpitations Instructions: ED AFIB, ED Chest Pain, Uncertain Cause, ED Palpitations Prescriptions: No Action budesonide-formoterol 160-4.5 mcg/actuation HFA aerosol inhaler 2 inh inhalation BID multivitamin Tablet 1 tab PO DAILY digoxin 125 mcg (0.125 mg) tablet 125 mcg PO DAILY Qty: 30 11RF metoprolol tartrate 50 mg tablet 50 mg PO BID Qty: 60 11RF warfarin 4 MG tablet 4 mg PO SUMOWETHFRSA Label Comments: blood thinner warfarin 6 MG tablet 6 mg PO TU Label Comments: blood thinner tamsulosin 0.4 MG capsule,extended release 24hr 0.4 mg PO QHS Label Comments: prostate kbhhr-[id number]-nww-epa-fish oil-D3 1 EACH capsule 2 ea PO DAILY Label Comments: suppliment fluticasone propionate 1 SPRAY spray,suspension 1 spray NASAL DAILY PRN (Reason: allergic rhinitis) sodium chloride 44 ML aerosol,spray 1 spray NASAL DAILY PRN (Reason: Allergies) famotidine-Ca carb-mag hydrox 1 EACH tablet,chewable 1 tab PO 4X/DAY PRN PRN (Reason: Heartburn) Primary Care Provider: Danny Helton Referrals: Danny Helton MD [Primary Care Provider] - 1-2 Days if not improving Activity Restrictions/Additional Instructions: Follow-up with your compressor assembler at the [facility]. Call them tomorrow for an appointment. Disposition Disposition: Home, Self Care
[2022-09-15 16:40] LABS: Absolute Neutrophil Count 7.5 X10^3/uL (2.0-7.7); Basophil# 0.06 X10^3/uL; Basophil% 0.5 % (0-1); Eosinophil# 0.21 X10^3/uL; Eosinophils% 1.8 % (0-5); Hematocrit 45.7 % (40-54); Hemoglobin 14.6 g/dL (13.0-16.5); Lymphocyte % 23.1 % (19-41); Mean Corp Hgb Conc 31.9 g/dL (32-36); Mean Platelet Vol. 10.1 fl (6.2-12.0); Monocyte# 1.18 X10^3/uL; Monocyte% 10.1 % (0-10); NRBC Flagged by Analyzer 0 % (0-5); Neutrophil # 7.48 X10^3/uL (2.7-7.7); Neutrophil % 64.2 % (47-70); Platelet Count 290 K/mm3 (150-450); RBC Distribution Width SD 46.6 fl (35.1-43.9); Red Blood Count 4.71 M/mm3 (4.6-6.2); White Blood Count 11.7 K/mm3 (4.4-11.0)
[2022-09-15 16:45] LABS: Prothrombin Time (Protime)PT. 22.2 SECONDS (11.7-14.9)
[2022-09-15] MEDS: Aspirin 81 MG TAB.CHEW 324 MG PO (16:50)
--- NOTE | 2022-09-15 16:50 | RAD_ITS ---
STUDY: X-RAY CHEST REASON FOR EXAM: Male, 77 years old. chest pain TECHNIQUE: Single frontal view of the chest. COMPARISON: December 20, 2021 FINDINGS: The lungs are clear and expanded. There is no demonstrated pleural abnormality. Normal size heart. Normal mediastinum and [place]. Normal visualized pulmonary arteries. Normal visualized aortic arch and descending thoracic aorta. Normal visualized thoracic spine. Normal visualized ribs, clavicles, and shoulders. There is no demonstrated abnormality of the visualized soft tissue structures of the upper abdomen. RAD/Chest 1 View (Portable) IMPRESSION: No acute disease. Electronically Signed: Tamir Christopher MD at 17:11 EST ,
[2022-09-15 16:55] LABS: Anion Gap 7 (5-15); BUN 16 mg/dL (7-18); BUN/Creat Ratio 17.1 RATIO (10-20); Calcium,Total 9.7 mg/dL (8.5-10.1); Chloride 108 mmol/L (98-107); Creatinine, Serum 0.93 mg/dL (0.70-1.30); EST Glomerular Filtration Rate 83 mL/min (>60); Est Glom Filt Rate - Afr Amer 101 mL/min (>60); Estimated Creatinine Clearance 71.85 ml/min; Glucose 98 mg/dL (74-106); Sodium Level 140 mmol/L (136-145); Troponin-I HS (w/2H Reflex) 13 pg/mL (3.0-78.0)
[2022-09-15 16:56] VITALS: O2SAT 98
[2022-09-15 17:35] VITALS: BP 131/89; PULSE 67; RESP 14; O2SAT 95
[2022-09-15 18:20] VITALS: BP 137/93; PULSE 62; RESP 17; O2SAT 93
[2022-09-15 18:28] LABS: Reflex Troponin-HS? (from REC) Y
[2022-09-15 19:04] LABS: Troponin-I HS 13 pg/mL (3.0-78.0)
[2022-09-15 19:23] VITALS: BP 145/94; PULSE 74; O2SAT 96
--- NOTE | 2022-09-15 19:25 | ED.RN ---
ATTEMPTED TO CALL REPORT, NO ANSWER EXCEPT VM, LEFT MESSAGE STATING WE WERE SENDING A RESIDENT BACK.
== END 2022-09-15 19:34 | disposition home or self-care (01) ==
PROVIDERS: Emergency Provider Emergency Medicine; PCP Family Medicine; Visit Provider Emergency Medicine
DX: I48.19 Other persistent atrial fibrillation (principal); E78.5 Hyperlipidemia, unspecified; I10 Essential (primary) hypertension; F17.210 Nicotine dependence, cigarettes, uncomplicated; Z79.01 Long term (current) use of anticoagulants
CPT/HCPCS: 71045; 80048; 84484; 85025; 85610; 93005; 99285; A4216

== ENCOUNTER 2024-08-26 01:25 | Emergency (ER) | payer MEDICARE, MEDICAID, SELFPAY ==
[2024-08-26 01:27] VITALS: BP 150/89; PULSE 72; RESP 18; TEMP 36.6; O2SAT 99; BMI 24.0
--- NOTE | 2024-08-26 01:42 | RAD_ITS ---
PROCEDURE: CHEST PA AND LATERAL REASON FOR EXAM: Shortness of breath TECHNIQUE: PA and lateral views of the chest. COMPARISON: 09/15/2022 FINDINGS: Mild hyperinflation, with coarsened interstitial markings, relatively stable. No new focal airspace consolidation, pneumothorax or pleural effusion is seen. Remaining lung markings otherwise appear stable. Heart size and great vessels are stable. Vascular calcifications within the aortic arch. Osseous thorax appears intact. Slight dextrocurvature and spondylotic changes involving the thoracic spine. EKG wires overlie the chest RAD/Chest PA and Lateral IMPRESSION: 1. Mild hyperinflation, without focal airspace consolidation. 2. Chronic changes, as above Reading Location: [facility]
--- NOTE | 2024-08-26 01:48 | EX.ED.DYSGE1 ---
HPI History of Present Illness Chief Complaint: General Illness Informant: patient Narrative Narrative: Patient is an 79-year-old male with history of longstanding persistent atrial fibrillation hypertension hyperlipidemia and tobacco abuse. He states this evening he felt like he had a 4 to 5-minute episode where it was difficult to breathe. He denies any palpitations or chest pain associated with this. He does state that he has a cough but denies any fevers chills or known sick contact. Patient states he feels much better at this time but based on the event was concerned and therefore comes in for evaluation [facility] Medical History Retinal detachment Left lower lobe pneumonia Longstanding persistent atrial fibrillation Essential (primary) hypertension Atrial fibrillation with RVR Cervical arthritis Other secondary pulmonary hypertension Hyperlipidemia Ataxia Cardiomyopathy Pulmonary emboli DVT (deep venous thrombosis) BPH (benign prostatic hyperplasia) Anxiety Home Medications ?Medication ?Instructions ?Recorded ?Last Taken ?Type omega-3s 360 tk-yfe-jqr-fish oil 2 ea PO DAILY health maintenance 03/12/15 03/15/19 07:00 History 1,200 mg-D3 1,000 unit capsule tamsulosin 0.4 mg capsule 0.4 mg PO QHS prostate 03/12/15 03/17/19 19:00 History warfarin 4 mg tablet 4 mg PO SUMOWETHFRSA a fib 03/12/15 03/17/19 17:00 History warfarin 6 mg tablet 6 mg PO TU blood thinner 03/12/15 03/11/19 17:00 History fluticasone propionate 50 1 spray NASAL DAILY PRN allergic 03/17/19 Unknown History mcg/actuation nasal rhinitis spray,suspension famotidine-Ca carb-mag hydrox 10 1 tab PO 4X/DAY PRN PRN Heartburn 05/05/19 Unknown History mg-800 mg-165 mg chewable tablet sodium chloride 0.65 % nasal spray 1 spray NASAL DAILY PRN Allergies 05/05/19 Unknown History aerosol budesonide-formoterol HFA 160 2 inh inhalation BID 04/14/21 Unknown History mcg-4.5 mcg/actuation aerosol inhaler digoxin 125 mcg (0.125 mg) tablet 125 mcg PO DAILY #30 tabs 10/12/21 Unknown Rx metoprolol tartrate 50 mg tablet 50 mg PO BID #60 tabs 10/12/21 Unknown Rx multivitamin 1 tab PO DAILY 10/12/21 Unknown History Allergy/AdvReac Type Severity Reaction Status Date / Time corn Allergy Rash Verified 08/26/24 01:27 lisinopril Allergy pain in Verified 08/26/24 01:27 legs, cant walk niacin Allergy Rash Verified 08/26/24 01:27 acetaminophen (From Tylenol) AdvReac Severe Chest pain Verified 08/26/24 01:27 guaifenesin (From Mucinex) AdvReac Severe Chest pain Verified 08/26/24 01:27 nut - unspecified AdvReac Other Verified 08/26/24 01:27 Family History Other Hypertension Surgical History H/O tooth extraction Social History Smoking Status: Current every day smoker tobacco type: cigarettes Tobacco: How many years used: 53 ROS ROS ED Constitutional Constitutional ED: Denies chills or fever(s) Eyes Eyes: Denies blurry vision or change in vision ENT ENT ED: Denies sore throat Cardiovascular Cardiovascular: Denies chest pain, palpitations or racing heartbeat Respiratory/Chest Respiratory/Chest: Reports cough and dyspnea Gastrointestinal Gastrointestinal: Denies abdominal pain, diarrhea, nausea or vomiting Genitourinary Genitourinary ED: Denies dysuria Musculoskeletal Musculoskeletal: Denies back pain Integumentary Denies rash Neurologic Neurologic: Denies headache(s) Hematologic/Lymphatic Hematologic/Lymphatic: Reports easy bleeding and easy bruising Allergic/Immunologic Allergic/Immunologic ED: Denies mouth swelling or tongue swelling EXAM Physical Exam Const Vital Signs: 08/26/24 01:27 08/26/24 01:27 08/26/24 02:09 Temperature 97.9 F Temperature Source Oral Pulse Rate 72 75 Respiratory Rate 18 18 Respiratory Effort Normal Respiratory Pattern Normal Normal Blood Pressure 150/89 H Blood Pressure Mean 109 Pulse Ox 99 Oxygen Delivery Method Room Air Positive well nourished and well developed General Appearance ED: well developed; Negative for pallor HEENT HEENT Narrative: Nasal mucosa is hyperemic and boggy There is cobblestoning noted in the posterior pharynx consistent with sinus drainage without airway edema or compromise; no secondary findings to suggest infection Eyes PERRL and EOMs intact bilaterally General Eye ED: Negative for scleral icterus Neck supple and no JVD Neck Narrative: No nuchal rigidity or meningeal signs Resp normal respiratory effort Resp Narrative: Breath sounds are diminished throughout with diffuse expiratory wheeze and faint rhonchi in the bilateral bases consistent with history of smoking no signs of respiratory distress Cardio regular rate Rate: other Other Details: Irregularly irregular rhythm with regular rate consistent with history of persistent A-fib Radial and carotid pulses are equal and symmetric GI normal to inspection, nondistended, normoactive bowel sounds, non-tender, non-distended and no masses GI Narrative: No voluntary guarding or rigidity or pulsatile mass No fluid wave noted Auscultation: normoactive bowel sounds Palpation: soft Extremity normal to inspection Extremity Narrative: No asymmetric edema no pitting edema negative Homans' sign bilaterally Neuro oriented x3 and CN's II-XII intact bilaterally Sensorium / Orientation: alert Psych mental status grossly normal Skin no rashes or lesions noted General Skin Exam: Negative for jaundice or pallor MDM MDM MDM Narrative Medical decision making narrative: Patient presented to the ER mildly hypertensive but has a past medical history of this and otherwise with stable vitals. He is in atrial fibrillation but this is rate controlled and chronic per patient and he is on Coumadin. Therefore my concern for underlying pathology such as PE is low. The fact that he reported spontaneous resolution of symptoms and has a history of tobacco abuse and emphysema is most consistent with bronchospasm. However he also be feeling shortness of breath sensation secondary to viral infection such as COVID influenza or RSV. Patient also could have potential pneumonia or pneumothorax or pleural effusion. Chest x-ray revealed emphysematous changes without acute finding. Viral swab was negative. After receiving a breathing treatment he had improvement of his breath sounds and reported complete resolution of his shortness of breath sensation. Therefore this time with monitoring not revealing any bouts of A-fib with rapid ventricular response but just normal rate controlled A-fib which is chronic per patient. The fact that he is not hypoxic or in respiratory distress and that his breath sounds have improved with a breathing treatment as well as his report of symptoms I do not feel there is need for further testing or workup as this indicates he most likely had a bronchospasm which resolved with treatment and is otherwise safe for discharge. History & Record Review Discussion w/independent historian: Patient Radiography Diagnostic Testing: Clinical Impression(s) from Imaging Studies Chest X-Ray 08/26/24 01:42 IMPRESSION: 1. Mild hyperinflation, without focal airspace consolidation. 2. 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 Instructions: ED Bronchospasm (Adult) Prescriptions: No Action budesonide-formoterol 160-4.5 mcg/actuation HFA aerosol inhaler 2 inh inhalation BID multivitamin Tablet 1 tab PO DAILY digoxin 125 mcg (0.125 mg) tablet 125 mcg PO DAILY Qty: 30 11RF metoprolol tartrate 50 mg tablet 50 mg PO BID Qty: 60 11RF warfarin 4 MG tablet 4 mg PO SUMOWETHFRSA Patient Comments: blood thinner warfarin 6 MG tablet 6 mg PO TU Patient Comments: blood thinner tamsulosin 0.4 MG capsule,extended release 24hr 0.4 mg PO QHS Patient Comments: prostate fenbp-4h-[id number]-epa-fish oil-D3 1 EACH capsule 2 ea PO DAILY Patient Comments: suppliment fluticasone propionate 1 SPRAY spray,suspension 1 spray NASAL DAILY PRN (Reason: allergic rhinitis) sodium chloride 44 ML aerosol,spray 1 spray NASAL DAILY PRN (Reason: Allergies) famotidine-Ca carb-mag hydrox 1 EACH tablet,chewable 1 tab PO 4X/DAY PRN PRN (Reason: Heartburn) Primary Care Provider: Danny Helton Referrals: Danny Helton MD [Primary Care Provider] - Activity Restrictions/Additional Instructions: Your chest x-ray did not show any obvious pneumonia. Your test for COVID influenza and RSV was negative. However after receiving a breathing treatment your breath sounds improved and this indicates that the shortness of breath sensation you felt at home was related to a bronchospasm. Please continue all of your medications as directed by your doctor but add the albuterol inhaler if symptoms recur. Return to the ER should you have any further concerns Print Language: Turkish Disposition Disposition: Home, Self Care
[2024-08-26 02:09] VITALS: PULSE 75; RESP 18
[2024-08-26] MEDS: Ipratropium/Albuterol Sulfate 3 ML AMPUL.NEB INHALATION (02:09)
[2024-08-26 03:05] VITALS: BP 162/94; PULSE 68; RESP 18; TEMP 36.6; O2SAT 96
[2024-08-26] MEDS: Albuterol Sulfate 8 gm Inhaler (60 puffs) 2 PUFF INHALATION (03:09)
[2024-08-26 03:26] VITALS: BP 146/83; PULSE 66; RESP 17; O2SAT 95
[2024-08-26 05:00] VITALS: BP 154/82; PULSE 65; RESP 13; O2SAT 96
[2024-08-26 07:51] VITALS: BP 148/98; PULSE 87; RESP 16; O2SAT 96
== END 2024-08-26 08:47 | disposition home or self-care (01) ==
PROVIDERS: Emergency Provider Emergency Medicine; PCP Family Medicine; Visit Provider Emergency Medicine
DX: J98.01 Acute bronchospasm (principal); I48.11 Longstanding persistent atrial fibrillation; I10 Essential (primary) hypertension; Z79.01 Long term (current) use of anticoagulants; E78.5 Hyperlipidemia, unspecified; F17.210 Nicotine dependence, cigarettes, uncomplicated; R06.02 Shortness of breath
CPT/HCPCS: 71046; 87631; 94640; 99284

== ENCOUNTER 2025-07-21 08:41 | Emergency (ER) | payer MEDICARE, MEDICAID, SELFPAY ==
[2025-07-21] VITALS (11 sets, daily range): BP systolic 105–146; BP diastolic 46–132; PULSE 70–130; RESP 15–20; TEMP 36.2–36.6; O2SAT 96–100; BMI 22.7
--- NOTE | 2025-07-21 08:59 | ED.VIS.GI ---
HPI HPI - GI History of Present Illness Chief Complaint: Diarrhea Informant: patient and EMS Narrative Narrative: Patient is an 80-year-old male with a history of IBS presenting with diarrhea and dizziness. - Reports diarrhea for about a month, with episodes occurring 5-10 times daily. - Describes today's episode as a sudden, large volume of liquid stool, initially appearing dark brown; denies hematochezia or melena. - Denies nausea or emesis today. - Associated symptoms include dizziness and near-syncope, stating, I couldn't hardly stand up. - Describes lower abdominal pain as mild and dull, occurring with each episode of diarrhea. - Denies fever. - No recent travel. - Uncertain about recent antibiotic use- none seen per disability counselor of recently filled Rx's. - Resides in an assisted living facility. [facility] Medical History Retinal detachment Left lower lobe pneumonia Longstanding persistent atrial fibrillation Essential (primary) hypertension Atrial fibrillation with RVR Cervical arthritis Other secondary pulmonary hypertension Hyperlipidemia Ataxia Cardiomyopathy Pulmonary emboli DVT (deep venous thrombosis) BPH (benign prostatic hyperplasia) Anxiety Home Medications ?Medication ?Instructions ?Recorded ?Last Taken ?Type omega-3s 360 ru-hiq-gvy-fish oil 2 ea PO DAILY health maintenance 03/12/15 03/15/19 07:00 History 1,200 mg-D3 1,000 unit capsule tamsulosin 0.4 mg capsule 0.4 mg PO QHS prostate 03/12/15 03/17/19 19:00 History warfarin 4 mg tablet 4 mg PO SUMOWETHFRSA a fib 03/12/15 03/17/19 17:00 History warfarin 6 mg tablet 6 mg PO TU blood thinner 03/12/15 03/11/19 17:00 History fluticasone propionate 50 1 spray NASAL DAILY PRN allergic 03/17/19 Unknown History mcg/actuation nasal rhinitis spray,suspension famotidine-Ca carb-mag hydrox 10 1 tab PO 4X/DAY PRN PRN Heartburn 05/05/19 Unknown History mg-800 mg-165 mg chewable tablet sodium chloride 0.65 % nasal spray 1 spray NASAL DAILY PRN Allergies 05/05/19 Unknown History aerosol budesonide-formoterol HFA 160 2 inh inhalation BID 04/14/21 Unknown History mcg-4.5 mcg/actuation aerosol inhaler digoxin 125 mcg (0.125 mg) tablet 125 mcg PO DAILY #30 tabs 10/12/21 Unknown Rx metoprolol tartrate 50 mg tablet 50 mg PO BID #60 tabs 10/12/21 Unknown Rx multivitamin 1 tab PO DAILY 10/12/21 Unknown History Allergy/AdvReac Type Severity Reaction Status Date / Time corn Allergy Rash Verified 07/21/25 08:43 lisinopril Allergy pain in Verified 07/21/25 08:43 legs, cant walk niacin Allergy Rash Verified 07/21/25 08:43 acetaminophen (From Tylenol) AdvReac Severe Chest pain Verified 07/21/25 08:43 guaifenesin (From Mucinex) AdvReac Severe Chest pain Verified 07/21/25 08:43 nut - unspecified AdvReac Other Verified 07/21/25 08:43 Family History Other Hypertension Surgical History H/O tooth extraction Social History Smoking Status: Current every day smoker tobacco type: cigarettes Tobacco: How many years used: 53 ROS ROS ED Constitutional Constitutional ED: Denies chills or fever(s) Eyes Eyes: Denies change in vision or diplopia ENT ENT ED: Denies rhinorrhea or sore throat Cardiovascular Cardiovascular: Reports lightheadedness; Denies chest pain, palpitations or syncope Respiratory/Chest Respiratory/Chest: Denies cough or dyspnea Gastrointestinal Gastrointestinal: Reports abdominal pain and diarrhea; Denies hematemesis, hematochezia, melena, nausea or vomiting Genitourinary Genitourinary ED: Denies dysuria or hematuria Musculoskeletal Musculoskeletal: Denies back pain or neck pain Integumentary Denies abscess or rash Neurologic Neurologic: Denies headache(s), paresthesias or weakness Psychiatric Psychiatric: Denies anxiety or suicidal thoughts EXAM Physical Exam Const Vital Signs: 07/21/25 08:43 07/21/25 08:49 07/21/25 09:49 Temperature 97.8 F 97.8 F 97.8 F Temperature Source Oral Oral Oral Pulse Rate 94 94 78 Pulse Rate [Lying] Pulse Rate [Sitting (for 1 minute prior to obtaining)] Pulse Rate [Standing (for 1 minute prior to obtaining)] Respiratory Rate 16 16 20 H Blood Pressure 105/76 105/76 111/72 Blood Pressure [Lying] Blood Pressure [Sitting (for 1 minute prior to obtaining)] Blood Pressure [Standing (for 1 minute prior to obtaining)] Blood Pressure Mean 85 85 85 Blood Pressure Mean [Lying] Blood Pressure Mean [Sitting (for 1 minute prior to obtaining)] Blood Pressure Mean [Standing (for 1 minute prior to obtaining)] Pulse Ox 100 100 98 Oxygen Delivery Method Room Air Room Air Room Air 07/21/25 10:42 07/21/25 12:00 07/21/25 12:17 Temperature Temperature Source Pulse Rate 82 86 Pulse Rate [Lying] 90 Pulse Rate [Sitting (for 1 minute prior to obtaining)] 112 H Pulse Rate [Standing (for 1 minute prior to obtaining)] 130 H Respiratory Rate 18 18 Blood Pressure 111/72 124/74 H Blood Pressure [Lying] 124/74 H Blood Pressure [Sitting (for 1 minute prior to obtaining)] 120/46 L Blood Pressure [Standing (for 1 minute prior to obtaining)] 146/132 H Blood Pressure Mean 85 90 Blood Pressure Mean [Lying] 90 Blood Pressure Mean [Sitting (for 1 minute prior to obtaining)] 70 Blood Pressure Mean [Standing (for 1 minute prior to obtaining)] 136 Pulse Ox 96 Oxygen Delivery Method Room Air 07/21/25 14:00 07/21/25 14:13 07/21/25 16:00 Temperature Temperature Source Pulse Rate 85 70 Pulse Rate [Lying] 120 H Pulse Rate [Sitting (for 1 minute prior to obtaining)] 82 Pulse Rate [Standing (for 1 minute prior to obtaining)] 71 Respiratory Rate 15 Blood Pressure 139/79 H 135/99 H Blood Pressure [Lying] 117/103 H Blood Pressure [Sitting (for 1 minute prior to obtaining)] 124/88 H Blood Pressure [Standing (for 1 minute prior to obtaining)] 129/76 H Blood Pressure Mean 99 111 Blood Pressure Mean [Lying] 107 Blood Pressure Mean [Sitting (for 1 minute prior to obtaining)] 100 Blood Pressure Mean [Standing (for 1 minute prior to obtaining)] 93 Pulse Ox 98 Oxygen Delivery Method Room Air Positive well nourished and well developed General Appearance ED: well developed and NAD HEENT Reports moist mucous membranes normocephalic and atraumatic Eyes PERRL and EOMs intact bilaterally Neck full ROM and supple Resp normal respiratory effort and clear to auscultation bilaterally Cardio no murmurs Rhythm: abnormal rhythm irregularly irregular GI non-tender and non-distended Auscultation: normoactive bowel sounds Palpation: soft Back/Spine no CVA tenderness General Back: other FROM Extremity normal to inspection General Extremety ED: Negative for edema, pulses abnormal or tenderness General Extremity: Negative for edema or pulses abnormal Neuro oriented x3, CN's II-XII intact bilaterally and no sensory deficits noted Sensorium / Orientation: awake and alert Motor Exam: strength 5/5 throughout Skin no rashes or lesions noted and no wounds MDM MDM MDM Narrative Medical decision making narrative: Assessment: The patient is an 80-year-old male with PMH of irritable bowel syndrome and atrial fibrillation on chronic warfarin therapy presenting for one month of worsening watery diarrhea, episodic lower abdominal discomfort, and a near-syncopal spell this morning. Labs show mild pre-renal azotemia with BUN 19 and creatinine 1.04, therapeutic INR 2.9, normal liver enzymes, lipase, and CBC without leukocytosis. Vital signs have remained normal and the abdominal discomfort has resolved without intervention. Current impression is diarrhea with mild dehydration and vasovagal near syncope; no evidence of infectious colitis or acute abdomen on today?s evaluation. Plan: - Administered IV fluids in ED. - Observation in ED for stool output and clinical stability. - Planned discharge back to assisted living once ambulating without dizziness and hydration status improved. - Return precautions and follow-up instructions discussed with patient. Diagnostics: - Labs: BUN 19 mg/dL and creatinine 1.04 mg/dL consistent with mild pre-renal state; CBC without leukocytosis; liver enzymes and lipase within normal limits; INR 2.9 therapeutic on warfarin. Reevaluations: - Patient re-checked after fluids: vitals stable, dizziness resolved, no further abdominal pain, has not produced stool in ED. abdominal exam benign on reevaluation similar to initial. Orthostatics positive with standing after some IV fluids. Therefore we continued more and continue to observe him. Performed repeat orthostatics after more IVF, negative, feels much better. Observed for a total of 8 hours in emergency department and not once had diarrhea despite eating and drinking. Therefore I think he is stable to be discharged back to assisted living. Portions of this note were generated using voice recognition software (Light [employer] Dictation). I have reviewed the contents and every effort has been made to ensure accuracy; however, inadvertent errors in grammar, spelling, punctuation, or word choice may occur, that were not noted before signing the document and should not alter the intended clinical meaning. Lab Data Attestation: I reviewed the patient's lab results. Labs: Laboratory Results - last 24 hr 07/21/25 08:55 WBC 8.8 RBC 4.96 Hgb 14.5 Hct 44.4 MCV 89.5 MCH 29.2 MCHC 32.7 RDW Std Deviation 47.3 H RDW Coeff of Maria Guadalupe 14.5 Plt Count 294 MPV 9.1 Immature Gran % (Auto) 0.500 Neut % (Auto) 77.2 H Lymph % (Auto) 12.9 L [place] % (Auto) 8.3 Eos % (Auto) 0.6 Baso % (Auto) 0.5 Absolute Neuts (auto) 6.8 Absolute Lymphs (auto) 1.14 Nucleated RBC % 0 PT 30.9 H INR 2.9 Sodium 135 Potassium 3.9 Chloride 101 Carbon Dioxide 20.3 Anion Gap 13 BUN 19 Creatinine 1.04 Estim Creat Clear Calc 59.96 Est GFR (MDRD) Non-Af 72 BUN/Creatinine Ratio 18.2 Glucose 112 H Calcium 9.1 Total Bilirubin 0.56 AST 21 ALT 9 Alkaline Phosphatase 65 Total Protein 6.9 Albumin 3.7 Globulin 3.2 Albumin/Globulin Ratio 1.2 Discharge Plan Triage Chief Complaint: Diarrhea ED Provider: Jose Gonzalez Dx/Rx/DC Orders Clinical Impression: Acute diarrhea, Vasovagal near syncope, Mild dehydration, Lower abdominal pain, Warfarin-induced coagulopathy Instructions: ED Diarrhea, Unknown Cause Prescriptions: No Action budesonide-formoterol 160-4.5 mcg/actuation HFA aerosol inhaler 2 inh inhalation BID multivitamin Tablet 1 tab PO DAILY digoxin 125 mcg (0.125 mg) tablet 125 mcg PO DAILY Qty: 30 11RF metoprolol tartrate 50 mg tablet 50 mg PO BID Qty: 60 11RF warfarin 4 MG tablet 4 mg PO SUMOWETHFR Patient Comments: blood thinner warfarin 6 MG tablet 6 mg PO Patient Comments: blood thinner tamsulosin 0.4 MG capsule,extended release 24hr 0.4 mg PO QHS Patient Comments: prostate ghuae-0v-zfz-epa-fish oil-D3 1 EACH capsule 2 ea PO DAILY Patient Comments: suppliment fluticasone propionate 1 SPRAY spray,suspension 1 spray NASAL DAILY PRN (Reason: allergic rhinitis) sodium chloride 44 ML aerosol,spray 1 spray NASAL DAILY PRN (Reason: Allergies) famotidine-Ca carb-mag hydrox 1 EACH tablet,chewable 1 tab PO 4X/DAY PRN PRN (Reason: Heartburn) Primary Care Provider: Danny Helton Referrals: Danny Helton MD [Primary Care Provider, [facility]] - As soon as possible Activity Restrictions/Additional Instructions: Observed all day in emergency department, feels better after fluids, no episodes of diarrhea for 8 hours therefore no stool able to be sent for testing, although this makes C. difficile and other acute bacterial etiologies less likely. Print Language: Slovenian Disposition Disposition: Home, Self Care
[2025-07-21 09:05] LABS: Hematocrit 44.4 % (40-54); Hemoglobin 14.5 g/dL (13.0-16.5); Immature Granulocytes Count 0.040 X10^3/uL (0.0-0.0); Mean Corp Hgb Conc 32.7 g/dL (32-36); Mean Corpuscular Volume 89.5 fL (80-94); Mean Platelet Vol. 9.1 fl (6.2-12.0); NRBC Flagged by Analyzer 0 % (0-5); Platelet Count 294 K/mm3 (150-450); RBC Distribution Width CV 14.5 % (11.6-14.6); RBC Distribution Width SD 47.3 fl (35.1-43.9); Red Blood Count 4.96 M/mm3 (4.6-6.2); White Blood Count 8.8 K/mm3 (4.4-11.0)
[2025-07-21] MEDS: 0.9% Normal Saline (1000mL) 1,000 ML 999 ML IV (09:13)
[2025-07-21 09:14] LABS: Prothrombin Time (Protime)PT. 30.9 SECONDS (11.7-14.9)
[2025-07-21 09:23] LABS: AST(SGOT) 21 U/L (<=37); Alanine Aminotransfer ALT/SGPT 9 U/L (<=46); Albumin, Serum 3.7 g/dL (3.4-4.8); Alkaline Phosphatase 65 U/L (40-129); Anion Gap 13 (7-18); BUN 19 mg/dL (4-19); BUN/Creat Ratio 18.2 RATIO (10-20); Calcium,Total 9.1 mg/dL (7.6-11.0); Carbon Dioxide 20.3 mmol/L (20.0-29.0); Chloride 101 mmol/L (96-106); Estimated Creatinine Clearance 59.96 ml/min (50-250); Globulin 3.2 g/dL (2.2-4.2); Glucose 112 mg/dL (70-99); Potassium 3.9 mmol/L (3.5-5.1)
[2025-07-21] MEDS: 0.9% Normal Saline (500mL Bag) 500 ML 999 ML IV (12:50)
--- NOTE | 2025-07-21 14:04 | ED.RN ---
[facility] updated on Pt status.
--- NOTE | 2025-07-21 18:08 | ED.RN ---
Attempted to call report to [facility]. No answer.
== END 2025-07-21 18:29 | disposition home or self-care (01) ==
PROVIDERS: Emergency Provider Emergency Medicine; PCP Family Medicine; Visit Provider Emergency Medicine
DX: R19.7 Diarrhea, unspecified (principal); E78.5 Hyperlipidemia, unspecified; Z86.718 Personal history of other venous thrombosis and embolism; I10 Essential (primary) hypertension; E86.0 Dehydration; Z86.711 Personal history of pulmonary embolism; F17.210 Nicotine dependence, cigarettes, uncomplicated; R42 Dizziness and giddiness; R10.30 Lower abdominal pain, unspecified
CPT/HCPCS: 80053; 85025; 85610; 96360; 96361; 99285; A4216

== ENCOUNTER 2025-07-23 12:53 | Emergency (ER) | payer MEDICARE, MEDICAID, SELFPAY ==
[2025-07-23] VITALS (13 sets, daily range): BP systolic 104–159; BP diastolic 61–123; PULSE 64–89; RESP 16–18; TEMP 36.4–36.8; O2SAT 96–100; BMI 23.7
--- NOTE | 2025-07-23 13:24 | CT_ITS ---
PROCEDURE: ABDOMEN/PELVIS W IV CONT ONLY 07/23/2025 REASON FOR EXAM: DIARRHEA TECHNIQUE: Procedure Code: [id number] Modality: CT Procedure: ABDOMEN/PELVIS W IV CONT ONLY Coronal and Sagittal reconstruction series were provided. CONTRAST: Isovue 370 VOLUME: 96 mL One or more dose reduction techniques were used (e.g., Automated exposure control, adjustment of the mA and/or kV according to patient size, use of iterative reconstruction technique. RADIATION DOSE SUMMARY: CTDlvol: 39 mGy DLP: 859 mGycm COMPARISON: None FINDINGS: Lung bases: Mild pericardial effusion. Pericardial fluid at the right ventricular free wall is 5 mm. Liver: Normal Gallbladder: Normal Spleen: Normal. Small splenule. Pancreas: Normal Adrenals: Normal Kidneys: 5.2 cm cyst left midpole. No collecting system dilation or calculus seen. Bladder: Normal Reproductive Organs: Normal Bowel: Small sliding hiatus hernia. Small bowel is degraded by motion artifact. No small bowel dilation. Diarrheal state is present involving the colon. Left inguinal hernia containing fat and a portion of the sigmoid colon. Mild non-specific hyperemia of the distal rectum/anus. Appendix: The appendix is not identified. There is no inflammatory process identified in the right lower quadrant to suggest appendicitis. Lymph nodes: None appear enlarged Vasculature: Mild diffuse atherosclerotic calcifications are noted. Peritoneum / Retroperitoneum: No free air, free fluid or mass. Bones: Moderate disc space narrowing, vacuum disc phenomenon lumbosacral junction. Abdominal wall: Intact ventral abdominal wall. Fat containing right inguinal hernia. Left fat containing inguinal hernia also contains nonincarcerated loop of sigmoid colon. CT/Abdomen/Pelvis W IV Cont ONLY IMPRESSION: 1. Diarrheal state. Mild hyperemia of the distal rectum and anus. Correlate with proctitis. Consider direct inspection after treatment. 2. Bilateral inguinal hernias. Left hernia contains a small nonincarcerated s egment of the sigmoid colon. 3. Simple cyst left kidney. Bosniak 1. No follow-up required. 4. Sliding hiatus hernia 5. Partially imaged heart shows is small pericardial effusion. Reading Location: [id number]
[2025-07-23] MEDS: 0.9% Normal Saline (1000mL) 1,000 ML 999 ML IV (13:33)
[2025-07-23 13:48] LABS: Hematocrit 44.5 % (40-54); Hemoglobin 14.7 g/dL (13.0-16.5); Immature Granulocytes Count 0.020 X10^3/uL (0.0-0.0); Mean Corp Hgb Conc 33.0 g/dL (32-36); Mean Corpuscular Volume 88.6 fL (80-94); Mean Platelet Vol. 9.2 fl (6.2-12.0); NRBC Flagged by Analyzer 0 % (0-5); Platelet Count 329 K/mm3 (150-450); RBC Distribution Width CV 14.6 % (11.6-14.6); RBC Distribution Width SD 47.3 fl (35.1-43.9); Red Blood Count 5.02 M/mm3 (4.6-6.2); White Blood Count 6.9 K/mm3 (4.4-11.0)
--- NOTE | 2025-07-23 13:58 | EDS_ITS ---
HPI History of Present Illness Chief Complaint: Diarrhea Narrative Narrative: Patient is a 80-year-old male with past medical history anxiety, DVT, BPH, hyperlipidemia, atrial fibrillation on warfarin who presented to the emergency department with the chief complaint of diarrhea. Patient states that he has had diarrhea for 2 weeks now and he feels that this is worsening. He states he has not had any blood in his stool. Patient denies any abdominal pain associated with this. He denies any sick contacts. [facility] Medical History Retinal detachment Left lower lobe pneumonia Longstanding persistent atrial fibrillation Essential (primary) hypertension Atrial fibrillation with RVR Cervical arthritis Other secondary pulmonary hypertension Hyperlipidemia Ataxia Cardiomyopathy Pulmonary emboli DVT (deep venous thrombosis) BPH (benign prostatic hyperplasia) Anxiety Home Medications ?Medication ?Instructions ?Recorded ?Last Taken ?Type omega-3s 360 [id number]-fish oil 2 ea PO DAILY health maintenance 03/12/15 03/15/19 07:00 History 1,200 mg-D3 1,000 unit capsule tamsulosin 0.4 mg capsule 0.4 mg PO QHS prostate 03/1203/17/19 19:00 History warfarin 4 mg tablet 4 mg PO SUMOWETHFRSA a fib 0 03/12/15 03/17/19 17:00 History warfarin 6 mg tablet 6 mg PO TU blood thinner 03/11/19 17:00 History fluticasone propionate 50 1 spray NASAL DAILY PRN zakiya rgic 03/17/19 Unknown History mcg/actuation nasal rhinitis spray,suspension famotidine-Ca carb-mag hydrox 10 1 tab PO 4X/DAY PRN P RN Heartburn 05/05/19 Unknown History mg-800 mg-165 mg chewable tablet sodium chloride 0.65 % nasal spray 1 spray NASAL DAILY PRN Allergies 05/05/19 Unknown History aerosol budesonide-formoterol HFA 160 2 inh inhalation BID Unknown History mcg-4.5 mcg/actuation aerosol inhaler digoxin 125 mcg (0.125 mg) tablet 125 mcg PO DAILY #30 tabs 10/12/21 Unknown Rx metoprolol tartrate 50 mg tablet 50 mg PO BID #60 tabs 10/12/21 Unknown Rx multivitamin 1 tab PO DAILY 10/12/21 Unkn own History amoxicillin 875 mg tablet 875 mg PO BID 7 days #14 tab s 07/23/25 Unknown Rx Allergy/AdvReac Type Severity Reaction Status Date / Time corn Allergy Rash Verified 07/23/25 12:58 lisinopril Allergy pain in Verified 07/23/25 12:58 legs, cant walk niacin Allergy Rash Verified 07/23/25 12:58 acetaminophen (From Tylenol) AdvReac Severe Chest pain Verified 07/23/25 12:58 guaifenesin (From Mucinex) AdvReac Severe Chest pain Verified 07/23/25 12:58 nut - unspecified AdvReac Other Verified 07/23/25 12:58 Family History Other Hypertension Surgical History H/O tooth extraction Social History Smoking Status: Current every day smoker tobacco type: cigarettes Tobacco: How many years used: 53 ROS ROS ED ROS Narrative Constitutional: Denies any fevers, chills, headaches Eyes: Denies double vision Cardiovascular: Denies chest pain Respiratory: Denies shortness of breath Abdomen: Complains of diarrhea as noted above denies nausea vomiting : Denies urinary symptoms Neurological: Denies any numbness, weakness, tingling Musculoskeletal: Denies back pain Skin: Denies any rashes or lesions EXAM Physical Exam Narrative Exam Narrative: General: Patient was lying in bed rest comfortably did not appear to be in acute distress Head: Atraumatic, normocephalic Eyes: PERRL bilaterally, EOMI bilaterally, no conjunctival injection noted Neck: Soft, supple, trachea midline Cardiovascular: Regular rate and rhythm Respiratory: Clear to auscultation bilaterally Abdomen: Soft, nondistended, no tenderness to palpation Extremities: +5/5 strength noted in the bilateral upper and lower extremity Neurological: Patient following commands that he was at [facility] year is 2024 Skin: Warm, dry, intact no rashes or lesions noted Const Vital Signs: 07/23/25 12:54 07/23/25 13:38 07/23/25 13:45 Temperature 98.3 F Temperature Source Oral Pulse Rate 89 Respiratory Rate 16 Blood Pressure 104/86 H 140/91 H Blood Pressure Mean 92 103 Pulse Ox 99 97 100 Oxygen Delivery Method Room Air 07/23/25 13:45 07/23/25 14:00 07/23/25 14:00 Temperature Temperature Source Pulse Rate Respiratory Rate Blood Pressure 140/91 H 148/94 H 148/94 H Blood Pressure Mean 103 107 107 Pulse Ox 100 Oxygen Delivery Method 07/23/25 14:15 07/23/25 14:15 07/23/25 14:30 Temperature 97.6 F L Temperature Source Oral Pulse Rate 64 Respiratory Rate 18 Blood Pressure 148/64 H 134/112 H 149/88 H Blood Pressure Mean 92 121 105 Pulse Ox 97 98 Oxygen Delivery Method Room Air 07/23/25 14:45 07/23/25 15:00 Temperature Temperature Source Pulse Rate Respiratory Rate Blood Pressure 152/61 H 153/97 H Blood Pressure Mean 86 112 Pulse Ox 96 99 Oxygen Delivery Method MDM MDM MDM Narrative Medical decision making narrative: Patient is a 80-year-old male who presented to the emergency department the chief complaint of 2 weeks of diarrhea. On the differential diagnose includes but not limited to bowel obstruction, constipation, viral gastroenteritis. Once workup is obtained and reviewed he will be reevaluated. Patient CBC reviewed and showed a white blood count of 6.9, hemoglobin is 14.7, plate count of 329. Patient sodium normal 139, potassium normal 3.7, creatinine 0.80. Patient AST and ALT were 30 and 11 respectively lipase was noted be 36. Patient CT abdomen pelvis with IV contrast showed diarrheal state mild hyperemia of the distal rectum and anus correlate with proctitis. Consider direct inspection after treatment. Bilateral inguinal hernias noted left hernia containing small nonincarcerated segment of the sigmoid colon. Simple cyst of the kidney no follow-up required. Slight hiatal hernia noted partially imaged heart shows small pericardial effusion. Patient INR noted to be 5.1. Patient notes that he has not had any black stools no blood in his stool he is not actively bleeding right now. Repeat abdominal exam performed at 3:20 PM his abdomen remains benign Discussed results with the patient he is advised to follow-up with his doctor in outpatient setting and follow-up with gastroenterology in the outpatient setting. He was encouraged to hold his dose of warfarin and have his INR repeated in approximately 1 to 2 days. He will be placed on Augmentin will be given first dose here in the emergency department. He is encouraged to return with worsening symptoms or concerns. All question concerns answered he is discharged back to the facility in stable condition. Lab Data Labs: Laboratory Results - last 24 hr 07/23/25 12:35 WBC 6.9 RBC 5.02 Hgb 14.7 Hct 44.5 MCV 88.6 MCH 29.3 MCHC 33.0 RDW Std Deviation 47.3 H RDW Coeff of Maria Guadalupe 14.6 Plt Count 329 MPV 9.2 Immature Gran % (Auto) 0.300 Neut % (Auto) 59.7 Lymph % (Auto) 24.1 [place] % (Auto) 13.4 H Eos % (Auto) 1.9 Baso % (Auto) 0.6 Absolute Neuts (auto) 4.1 Absolute Lymphs (auto) 1.67 Nucleated RBC % 0 Sodium 139 Potassium 3.7 Chloride 107 H Carbon Dioxide 20.8 Anion Gap 11 BUN 15 Creatinine 0.80 Estim Creat Clear Calc 79.49 Est GFR (MDRD) Non-Af 89 BUN/Creatinine Ratio 18.9 Glucose 93 Calcium 9.2 Total Bilirubin 0.33 AST 30 ALT 11 Alkaline Phosphatase 63 Total Protein 6.9 Albumin 3.7 Globulin 3.3 Albumin/Globulin Ratio 1.1 Lipase 36 Digoxin 0.36 Radiography Diagnostic Testing: Clinical Impression(s) from Imaging Studies Abdomen/Pelvis CT 07/23/25 13:24 IMPRESSION: 1. Diarrheal state. Mild hyperemia of the distal rectum and anus. Correlate with proctitis. Consider direct inspection after treatment. 2. Bilateral inguinal hernias. Left hernia contains a small nonincarcerated segment of the sigmoid colon. 3. Simple cyst left kidney. Bosniak 1. No follow-up required. 4. Sliding hiatus hernia 5. Partially imaged heart shows is small pericardial effusion. Reading Location: [id number] Discharge Plan Triage Chief Complaint: Diarrhea ED Provider: Carlos De Souza Dx/Rx/DC Orders Clinical Impression: Diarrhea, Essential (primary) hypertension, Warfarin-induced coagulopathy Prescriptions: New amoxicillin 875 mg tablet 875 mg PO BID 7 Days Qty: 14 0RF No Action budesonide-formoterol 160-4.5 mcg/actuation HFA aerosol inhaler 2 inh inhalation BID multivitamin Tablet 1 tab PO DAILY digoxin 125 mcg (0.125 mg) tablet 125 mcg PO DAILY Qty: 30 11RF metoprolol tartrate 50 mg tablet 50 mg PO BID Qty: 60 11RF warfarin 4 MG tablet 4 mg PO SUMOWE Patient Comments: blood thinner warfarin 6 MG tablet 6 mg PO TU Patient Comments: blood thinner tamsulosin 0.4 MG capsule,extended release 24hr 0.4 mg PO QHS Patient Comments: prostate [id number]-fish oil-D3 1 EACH capsule 2 ea PO DAILY Patient Comments: suppliment fluticasone propionate 1 SPRAY spray,suspension 1 spray NASAL DAILY PRN (Reason: allergic rhinitis) sodium chloride 44 ML aerosol,spray 1 spray NASAL DAILY PRN (Reason: Allergies) famotidine-Ca carb-mag hydrox 1 EACH tablet,chewable 1 tab PO 4X/DAY PRN PRN (Reason: Heartburn) Primary Care Provider: Hunter Flores Referrals: Hunter Flores MD [Primary Care Provider, [facility]] Activity Restrictions/Additional Instructions: Follow-up with your doctor in outpatient setting. Follow-up with gastroenterology in the outpatient setting. Take antibiotics as prescribed. Your CT did not show any acute surgical findings here today and your INR was elevated to 5.1 you need to hold your next couple doses of your warfarin and have your INR repeated in 1 to 2 days. Return with worsening symptoms or any concerns Print Language: Nam[place]ian Disposition Disposition: [facility]
[2025-07-23 14:28] LABS: AST(SGOT) 30 U/L (<=37); Alanine Aminotransfer ALT/SGPT 11 U/L (<=46); Albumin, Serum 3.7 g/dL (3.4-4.8); Alkaline Phosphatase 63 U/L (40-129); Anion Gap 11 (7-18); BUN 15 mg/dL (4-19); BUN/Creat Ratio 18.9 RATIO (10-20); Calcium,Total 9.2 mg/dL (7.6-11.0); Carbon Dioxide 20.8 mmol/L (20.0-29.0); Chloride 107 mmol/L (96-106); Estimated Creatinine Clearance 79.49 ml/min (50-250); Globulin 3.3 g/dL (2.2-4.2); Glucose 93 mg/dL (70-99); Lipase 36 U/L (13-75); Potassium 3.7 mmol/L (3.5-5.1)
[2025-07-23 15:12] LABS: Prothrombin Time (Protime)PT. 48.4 SECONDS (11.7-14.9)
[2025-07-23 15:14] LABS: Partial Thromboplast Time 47.2 Seconds (24.1-36.2)
== END 2025-07-23 16:58 | disposition skilled nursing facility (03) ==
PROVIDERS: Emergency Provider Emergency Medicine; PCP Family Medicine; Visit Provider Emergency Medicine
DX: R19.7 Diarrhea, unspecified (principal); I48.11 Longstanding persistent atrial fibrillation; K44.9 Diaphragmatic hernia without obstruction or gangrene; I10 Essential (primary) hypertension; Z86.711 Personal history of pulmonary embolism; K40.20 Bilateral inguinal hernia, without obstruction or gangrene, not specified as recurrent; E78.5 Hyperlipidemia, unspecified; N28.1 Cyst of kidney, acquired; Z86.718 Personal history of other venous thrombosis and embolism; Z79.01 Long term (current) use of anticoagulants; F17.210 Nicotine dependence, cigarettes, uncomplicated; I31.39 Other pericardial effusion (noninflammatory); K62.89 Other specified diseases of anus and rectum
CPT/HCPCS: 74177; 80053; 80162; 83690; 85025; 85610; 85730; 87506; 96360; 96361; 96372; 99285; Q9967; A4216